=== PATIENT | female | born 1950 | race Caucasian/White ===

== ENCOUNTER 2019-12-20 12:15 | Outpatient (RCR) | payer MEDICARE, SELFPAY ==
--- NOTE | 2019-11-22 11:11 | PT.OIE ---
Current Diagnoses Displaced fracture of fifth metatarsal bone, right foot, initial encounter for closed fracture (11/22/19) Visit Care Team Role Provider Type Manuel Reilly MD Primary Care Provider Physician Specialty: Wound Care Address: [address] [place] [address], [id number] Email: [email or web address] Provider Physician Referring Provider Specialty: Podiatry Address: [address] [place] [address], [id number] Email: [email or web address] Physical Therapy Initial Evaluation PT-OP-A Visit Information Start: 11/22/19 09:55 Freq: Status: Active Protocol: Document 11/22/19 09:56 MB (Rec: 11/22/19 10:12 MB [id number]) Out-Patient Physical Therapy Visit Information Visit Information Visit Type Initial Evaluation Visit Note [employer] Medicare Advantage Visit Start Time 09:56 Visit Stop Time 10:30 Total Visit Minutes 34 Visit Number 1 Evaluation Information Evaluation Date 11/22/19 PT-OP-B Current Condition Start: 11/22/19 09:55 Freq: Status: Active Protocol: Document 11/22/19 09:56 MB (Rec: 11/22/19 10:12 MB [id number]) Current Condition History of Current Condition Onset Date 10/15/2019 Current Complaints Occ dizziness, neck pain, back pain, right foot pain History of Current Condition Pt tripped over a cord at home . On x-ray 10/16/2019, pt with fx through proximal aspect of fifth metatarsal bone with fracture displacement. Clinician report revealed irregular area medial cuneiform at the navicular cuneiform junction consistent with fracture, 5th metatarsal styloid process fracture. Pt was wearing boot for a few days and then post-op shoe and using walker. She is now using walking stick and ASO in shoe. Pain reports 2/10 pain bottom and top of right foot, neck and back pain up to 5/10. Pt reports history of dizziness, OP, arthritis, left hip replacement, hyopthyroidism. Pt has one step to enter house with 1 rail. Pt has stairs in the house to bedroom. She has two sets of staris, one has both rails and one has right rail ascend. Right now she is sleeping downstairs. She just moved to the area. Pt just saw Dr. Arredondo and cleared her for WBAT with ASO and shoe. Prior Treatments and Tests X-ray Treatment Goals Patient/Caregiver Goals Goals for PT are to be able to walk better and get back to normal activities. PT-OP-C Subjective Start: 11/22/19 09:55 Freq: Status: Active Protocol: Document 11/22/19 09:56 MB (Rec: 11/22/19 10:12 MB [id number]) OP-PT Subjective Patient Comments Patient Comments See history of current condition and goals sections. Patient Questionnaires Lower Extremity Functional Scale LEFS Score 34 LEFS Impairment 40 to 59% Impaired (Score 32- 47) PT-OP-D Balance Start: 11/22/19 09:55 Freq: Status: Active Protocol: Document 11/22/19 09:56 MB (Rec: 11/22/19 11:00 MB [id number]) Balance Tests Other Other Balance Tests Performed Pt does not full WB through right foot in standing and uses walking stick as cane, which is not very steady. Formal balance testing deferred. PT-OP-G Mobility & Gait Start: 11/22/19 09:55 Freq: Status: Active Protocol: Document 11/22/19 09:56 MB (Rec: 11/22/19 11:00 MB [id number]) OP Gait Assessment Gait Gait Assistance Required: Standby Assistance Distance (Feet) 100 Able to Maintain Weight Bearing Status Yes During Gait Gait Deviations General Gait Pattern Decreased Stride Length, Decreased Feet Clearance, Flexed Trunk,Lateral Trunk Lean Factors Limiting Gait Function Factors Limiting Gait Function Limited Range of Motion,Pain, Poor Balance Comments Gait Comments Pt uses walking stick in left hand. The stick is low, like a cane, but does not offer support like a cane d/t the handle. Ed patient in this and benefits of cane or traying the walking stick at raised height. PT-OP-J Posture/Palpation/Skin Start: 11/22/19 09:55 Freq: Status: Active Protocol: Document 11/22/19 09:56 MB (Rec: 11/22/19 11:02 MB [id number]) Skin Assessment Other Assessments Skin Assessment Comments See ankle circumference measurement under ROM. Pt presents with bruising over right great toe. Her proprioception in toes is normal. PT-OP-K Range of Motion Start: 11/22/19 09:55 Freq: Status: Active Protocol: Document 11/22/19 09:56 MB (Rec: 11/22/19 11:00 MB [id number]) Ankle and Foot Goniometric Range of Motion Ankle and Foot Right Ankle/Foot ROM WFL No Testing Position Supine Inversion 20 Eversion 5 Left Ankle/Foot ROM WFL Yes Testing Position Supine Ankle and Foot ROM Limitations Comments Pt presents with self-limiting behaviors with foot motion. She presents with right active AROM DF and PF 50% range compared to the left in supine with leg supported Pt presents with edema right ankle with figure 8 circumference 49 cm and left 47 cm. PT-OP-M Strength Start: 11/22/19 09:55 Freq: Status: Active Protocol: Document 11/22/19 09:56 MB (Rec: 11/22/19 11:00 MB [id number]) Hip Strength Hip Manual Muscle Testing Right Flexion (L2) 3+ Fair+ Abduction 3+ Fair+ Left Flexion (L2) 4 Good Abduction 3+ Fair+ Knee Strength Knee Manual Muscle Testing Right Flexion (S2) 3+ Fair+ Extension (L3) 3+ Fair+ Left Flexion (S2) 4 Good Extension (L3) 4 Good Ankle/Foot Strength Ankle and Foot Manual Muscle Testing Right Comments MMT not tested d/t symptomology and pt fear Left Dorsiflexion (L4) 5 Normal Plantarflexion (S1) 4 Good Inversion 5 Normal Eversion (S1) 5 Normal Comments PF assessed supine PT-OP-T Assessment and Plan Start: 11/22/19 09:55 Freq: Status: Active Protocol: Document 11/22/19 09:56 MB (Rec: 11/22/19 11:00 MB [id number]) Physical Therapy Assessment Rehab Potential Rehabilitation Potential Fair Evaluation Complexity Number of Personal Factors/Comorbidities 1-2 Number of Body Systems Impaired 1-2 Clinical Presentation at Evaluation Evolving Impairments Impairments Activity Tolerance,Balance, Edema,Gait,Pain,ROM,Soft Tissue Mobility,Strength Other Impairments Pt with advanced age, fractures in setting of OP, history of dizziness and falls . This fall was mechanical, tripped over cord. Goals 5 Longterm Goal (LTG) Pt will ascend and descend 7 steps with 1 rail to allow safe home mobility by 2019. LTG Duration 8 weeks 4 Ehs Manager Goal (LTG) Pt will perform HEP with I including balance, flexibility , strengthening and gait to improve strength and walking by 01/21/2020. LTG Duration 8 weeks 3 Longterm Goal (LTG) Pt will perform WNLs on a standardized balance test to decrease fall risk by 2019. LTG Duration 8 weeks 2 Longterm Goal (LTG) Pt will gait train at least 900 feet in 6 minutes with or without AD to improve community ambulation safety and speed by 01/21/2020. LTG Duration 8 weeks 1 Ehs Manager Goal (LTG) Pt will present with an improved LE functional index score to reflect no more than 20% impairment to reflect improved functional mobility by 01/21/2020. LTG Duration 8 weeks Assessment Summary Assessment Pt is a 69 y/o female presenting with right foot edema, erythema, decreased range and strength, poor gait and balance after tripping over cord and fall in October. [place] to the area. Her new home has a flight of steps inside. She lives alone and does not have help. Pt will benefit from PT to improve flexibility, range, strength and gait. Barriers to PT include comminuted foot fracture in older female with OP. She may have poor bone healing. Also, she has a history of dizziness and this may increase fall risk. PT included canalith repositioning in intervention plan in case she needs to be assessed and treated, which will help reduce fall risk and improve gait and I. Pt provided Tubagrip today to help with compression and ed pt on elevation, icing and AROM right foot as well as shoes near bed to use when getting up at night--no barefoot walking. Physical Therapy Plan Frequency and Duration Frequency of Treatment 2x/Week Duration of Treatment 8 weeks Plan of Care Start Date 11/22/19 Plan of Care End Date 01/21/20 Therapeutic Interventions Therapeutic Interventions Aquatic Therapy,Balance Training,Canalithic Repositioning,Coordination Training,Gait Training,Home Exercise Program,Manual Therapy,Neuromuscular Re- education,Patient/Caregiver Education,Self-Care/Home Management,Soft Tissue Mobilization,Taping, Therapeutic Activities, Therapeutic Exercises Modalities Cold Pack/Ice Massage,Electric Stimulation,Hot Packs, Ultrasound Other Therapeutic Interventions LLT Next Visit Focus/Plan Next Note Type Treatment Note Next Visit Plan Review RICE, answer questions about compression, review footwear options, discuss ASO use, progress gentle AROM in supine and sitting, cane vs walking stick
--- NOTE | 2019-11-25 16:00 | PT.OTN ---
Current Diagnoses Displaced fracture of fifth metatarsal bone, right foot, initial encounter for closed fracture (11/25/19) Physical Therapy Treatment Note PT-OP-A Visit Information Start: 11/22/19 09:55 Freq: Status: Active Protocol: Document 11/25/19 15:17 MB (Rec: 11/25/19 16:00 MB [id number]) Out-Patient Physical Therapy Visit Information Visit Information Visit Type Treatment Note Visit Note [employer] Medicare Advantage Visit Start Time 15:17 Visit Stop Time 16:00 Total Visit Minutes 43 Visit Number 2 PT-OP-B Current Condition Start: 11/22/19 09:55 Freq: Status: Active Protocol: Document 11/22/19 09:56 MB (Rec: 11/22/19 10:12 MB [id number]) Current Condition History of Current Condition Onset Date 10/15/2019 Current Complaints Occ dizziness, neck pain, back pain, right foot pain History of Current Condition Pt tripped over a cord at home . On x-ray 10/16/2019, pt with fx through proximal aspect of fifth metatarsal bone with fracture displacement. Clinician report revealed irregular area medial cuneiform at the navicular cuneiform junction consistent with fracture, 5th metatarsal styloid process fracture. Pt was wearing boot for a few days and then post-op shoe and using walker. She is now using walking stick and ASO in shoe. Pain reports 2/10 pain bottom and top of right foot, neck and back pain up to 5/10. Pt reports history of dizziness, OP, arthritis, left hip replacement, hyopthyroidism. Pt has one step to enter house with 1 rail. Pt has stairs in the house to bedroom. She has two sets of staris, one has both rails and one has right rail ascend. Right now she is sleeping downstairs. She just moved to the area. Pt just saw Dr. Arredondo and cleared her for WBAT with ASO and shoe. Prior Treatments and Tests X-ray Treatment Goals Patient/Caregiver Goals Goals for PT are to be able to walk better and get back to normal activities. PT-OP-C Subjective Start: 11/22/19 09:55 Freq: Status: Active Protocol: Document 11/25/19 15:17 MB (Rec: 11/25/19 16:00 MB [id number]) OP-PT Subjective Patient Comments Patient Comments Pt states that she walked half mile to PT with walking stick in left hand and sneakers. She does not wear ASO. PT-OP-D Balance Start: 11/22/19 09:55 Freq: Status: Active Protocol: Document 11/22/19 09:56 MB (Rec: 11/22/19 11:00 MB [id number]) Balance Tests Other Other Balance Tests Performed Pt does not full WB through right foot in standing and uses walking stick as cane, which is not very steady. Formal balance testing deferred. PT-OP-G Mobility & Gait Start: 11/22/19 09:55 Freq: Status: Active Protocol: Document 11/22/19 09:56 MB (Rec: 11/22/19 11:00 MB [id number]) OP Gait Assessment Gait Gait Assistance Required: Standby Assistance Distance (Feet) 100 Able to Maintain Weight Bearing Status Yes During Gait Gait Deviations General Gait Pattern Decreased Stride Length, Decreased Feet Clearance, Flexed Trunk,Lateral Trunk Lean Factors Limiting Gait Function Factors Limiting Gait Function Limited Range of Motion,Pain, Poor Balance Comments Gait Comments Pt uses walking stick in left hand. The stick is low, like a cane, but does not offer support like a cane d/t the handle. Ed patient in this and benefits of cane or traying the walking stick at raised height. PT-OP-J Posture/Palpation/Skin Start: 11/22/19 09:55 Freq: Status: Active Protocol: Document 11/22/19 09:56 MB (Rec: 11/22/19 11:02 MB [id number]) Skin Assessment Other Assessments Skin Assessment Comments See ankle circumference measurement under ROM. Pt presents with bruising over right great toe. Her proprioception in toes is normal. PT-OP-K Range of Motion Start: 11/22/19 09:55 Freq: Status: Active Protocol: Document 11/22/19 09:56 MB (Rec: 11/22/19 11:00 MB [id number]) Ankle and Foot Goniometric Range of Motion Ankle and Foot Right Ankle/Foot ROM WFL No Testing Position Supine Inversion 20 Eversion 5 Left Ankle/Foot ROM WFL Yes Testing Position Supine Ankle and Foot ROM Limitations Comments Pt presents with self-limiting behaviors with foot motion. She presents with right active AROM DF and PF 50% range compared to the left in supine with leg supported Pt presents with edema right ankle with figure 8 circumference 49 cm and left 47 cm. PT-OP-M Strength Start: 11/22/19 09:55 Freq: Status: Active Protocol: Document 11/22/19 09:56 MB (Rec: 11/22/19 11:00 MB [id number]) Hip Strength Hip Manual Muscle Testing Right Flexion (L2) 3+ Fair+ Abduction 3+ Fair+ Left Flexion (L2) 4 Good Abduction 3+ Fair+ Knee Strength Knee Manual Muscle Testing Right Flexion (S2) 3+ Fair+ Extension (L3) 3+ Fair+ Left Flexion (S2) 4 Good Extension (L3) 4 Good Ankle/Foot Strength Ankle and Foot Manual Muscle Testing Right Comments MMT not tested d/t symptomology and pt fear Left Dorsiflexion (L4) 5 Normal Plantarflexion (S1) 4 Good Inversion 5 Normal Eversion (S1) 5 Normal Comments PF assessed supine PT-OP-Q Treatments Start: 11/22/19 09:55 Freq: Status: Active Protocol: Document 11/25/19 15:17 MB (Rec: 11/25/19 16:00 MB [id number]) Therapeutic Exercises Sitting Exercises [place] for plantar fascia stretch and toe flexion and PF with level 2 band Comments Performed 10 reps Gait Training Gait Activity Gait training after taping right knee for support Comments Pt con't to present with improved gait without AD and carrying bags, right knee taped for support and she states it feels better Gait training with and without walking stick in left hand with pt carrying her purse and bag Comments Pt gait trains with walking stick, gait is slower and more antalgic and with more Trendelenburg gait, gait is much better without AD. She carries bags half mile to appointment and so PT assesses her carrying the bags without walking aide and she gait trains better Manual Therapy Treatment Taping Right knee Comments Black KT I strips medial and lateral knee for support and c strip under knee PT-OP-T Assessment and Plan Start: 11/22/19 09:55 Freq: Status: Active Protocol: Document 11/25/19 15:17 MB (Rec: 11/25/19 16:00 MB [id number]) Physical Therapy Assessment Rehab Potential Rehabilitation Potential Fair Evaluation Complexity Number of Personal Factors/Comorbidities 1-2 Number of Body Systems Impaired 1-2 Clinical Presentation at Evaluation Evolving Impairments Impairments Activity Tolerance,Balance, Edema,Gait,Pain,ROM,Soft Tissue Mobility,Strength Other Impairments Pt with advanced age, fractures in setting of OP, history of dizziness and falls . This fall was mechanical, tripped over cord. Goals 5 Pharmacist Technician Goal (LTG) Pt will ascend and descend 7 steps with 1 rail to allow safe home mobility by 2019. LTG Duration 8 weeks 4 Longterm Goal (LTG) Pt will perform HEP with I including balance, flexibility , strengthening and gait to improve strength and walking by 01/21/2020. LTG Duration 8 weeks 3 Longterm Goal (LTG) Pt will perform WNLs on a standardized balance test to decrease fall risk by 2019. LTG Duration 8 weeks 2 Pharmacist Technician Goal (LTG) Pt will gait train at least 900 feet in 6 minutes with or without AD to improve community ambulation safety and speed by 01/21/2020. LTG Duration 8 weeks 1 Pharmacist Technician Goal (LTG) Pt will present with an improved LE functional index score to reflect no more than 20% impairment to reflect improved functional mobility by 01/21/2020. LTG Duration 8 weeks Assessment Summary Assessment Progressed gait without AD and ASO today. Added ankle stretch and band strengthening exercise. Con't to progress. Physical Therapy Plan Frequency and Duration Frequency of Treatment 2x/Week Duration of Treatment 8 weeks Plan of Care Start Date 11/22/19 Plan of Care End Date 01/21/20 Therapeutic Interventions Therapeutic Interventions Aquatic Therapy,Balance Training,Canalithic Repositioning,Coordination Training,Gait Training,Home Exercise Program,Manual Therapy,Neuromuscular Re- education,Patient/Caregiver Education,Self-Care/Home Management,Soft Tissue Mobilization,Taping, Therapeutic Activities, Therapeutic Exercises Modalities Cold Pack/Ice Massage,Electric Stimulation,Hot Packs, Ultrasound Other Therapeutic Interventions LLT Next Visit Focus/Plan Next Note Type Treatment Note Next Visit Plan Con't exercise progression, flexibility, strengthening and gait--consider hip strengthening in hook lying to begin with and hook lying flexibility exercises, progressive balance exercises
--- NOTE | 2019-11-29 13:43 | PT.OTN ---
Current Diagnoses Displaced fracture of fifth metatarsal bone, right foot, initial encounter for closed fracture (11/29/19) Physical Therapy Treatment Note PT-OP-A Visit Information Start: 11/22/19 09:55 Freq: Status: Active Protocol: Document 11/29/19 13:08 MB (Rec: 11/29/19 13:42 MB [id number]) Out-Patient Physical Therapy Visit Information Visit Information Visit Type Treatment Note Visit Note [facility] Medicare Advantage Pt arrives late to appointment Visit Start Time 13:08 Visit Stop Time 13:45 Total Visit Minutes 37 Visit Number 3 PT-OP-B Current Condition Start: 11/22/19 09:55 Freq: Status: Active Protocol: Document 11/22/19 09:56 MB (Rec: 11/22/19 10:12 MB [id number]) Current Condition History of Current Condition Onset Date 10/15/2019 Current Complaints Occ dizziness, neck pain, back pain, right foot pain History of Current Condition Pt tripped over a cord at home . On x-ray 10/16/2019, pt with fx through proximal aspect of fifth metatarsal bone with fracture displacement. Clinician report revealed irregular area medial cuneiform at the navicular cuneiform junction consistent with fracture, 5th metatarsal styloid process fracture. Pt was wearing boot for a few days and then post-op shoe and using walker. She is now using walking stick and ASO in shoe. Pain reports 2/10 pain bottom and top of right foot, neck and back pain up to 5/10. Pt reports history of dizziness, OP, arthritis, left hip replacement, hyopthyroidism. Pt has one step to enter house with 1 rail. Pt has stairs in the house to bedroom. She has two sets of staris, one has both rails and one has right rail ascend. Right now she is sleeping downstairs. She just moved to the area. Pt just saw Dr. Arredondo and cleared her for WBAT with ASO and shoe. Prior Treatments and Tests X-ray Treatment Goals Patient/Caregiver Goals Goals for PT are to be able to walk better and get back to normal activities. PT-OP-C Subjective Start: 11/22/19 09:55 Freq: Status: Active Protocol: Document 11/29/19 13:08 MB (Rec: 11/29/19 13:42 MB [id number]) OP-PT Subjective Patient Comments Patient Comments Pt states that she thinks she might get a cane to help take the pressure off her right foot with walking. PT encourages her to try two walking sticks instead. She is using Tubagrip. PT-OP-D Balance Start: 11/22/19 09:55 Freq: Status: Active Protocol: Document 11/22/19 09:56 MB (Rec: 11/22/19 11:00 MB [id number]) Balance Tests Other Other Balance Tests Performed Pt does not full WB through right foot in standing and uses walking stick as cane, which is not very steady. Formal balance testing deferred. PT-OP-G Mobility & Gait Start: 11/22/19 09:55 Freq: Status: Active Protocol: Document 11/22/19 09:56 MB (Rec: 11/22/19 11:00 MB [id number]) OP Gait Assessment Gait Gait Assistance Required: Standby Assistance Distance (Feet) 100 Able to Maintain Weight Bearing Status Yes During Gait Gait Deviations General Gait Pattern Decreased Stride Length, Decreased Feet Clearance, Flexed Trunk,Lateral Trunk Lean Factors Limiting Gait Function Factors Limiting Gait Function Limited Range of Motion,Pain, Poor Balance Comments Gait Comments Pt uses walking stick in left hand. The stick is low, like a cane, but does not offer support like a cane d/t the handle. Ed patient in this and benefits of cane or traying the walking stick at raised height. PT-OP-J Posture/Palpation/Skin Start: 11/22/19 09:55 Freq: Status: Active Protocol: Document 11/22/19 09:56 MB (Rec: 11/22/19 11:02 MB [id number]) Skin Assessment Other Assessments Skin Assessment Comments See ankle circumference measurement under ROM. Pt presents with bruising over right great toe. Her proprioception in toes is normal. PT-OP-K Range of Motion Start: 11/22/19 09:55 Freq: Status: Active Protocol: Document 11/22/19 09:56 MB (Rec: 11/22/19 11:00 MB [id number]) Ankle and Foot Goniometric Range of Motion Ankle and Foot Right Ankle/Foot ROM WFL No Testing Position Supine Inversion 20 Eversion 5 Left Ankle/Foot ROM WFL Yes Testing Position Supine Ankle and Foot ROM Limitations Comments Pt presents with self-limiting behaviors with foot motion. She presents with right active AROM DF and PF 50% range compared to the left in supine with leg supported Pt presents with edema right ankle with figure 8 circumference 49 cm and left 47 cm. PT-OP-M Strength Start: 11/22/19 09:55 Freq: Status: Active Protocol: Document 11/22/19 09:56 MB (Rec: 11/22/19 11:00 MB [id number]) Hip Strength Hip Manual Muscle Testing Right Flexion (L2) 3+ Fair+ Abduction 3+ Fair+ Left Flexion (L2) 4 Good Abduction 3+ Fair+ Knee Strength Knee Manual Muscle Testing Right Flexion (S2) 3+ Fair+ Extension (L3) 3+ Fair+ Left Flexion (S2) 4 Good Extension (L3) 4 Good Ankle/Foot Strength Ankle and Foot Manual Muscle Testing Right Comments MMT not tested d/t symptomology and pt fear Left Dorsiflexion (L4) 5 Normal Plantarflexion (S1) 4 Good Inversion 5 Normal Eversion (S1) 5 Normal Comments PF assessed supine PT-OP-Q Treatments Start: 11/22/19 09:55 Freq: Status: Active Protocol: Document 11/29/19 13:08 MB (Rec: 11/29/19 13:42 MB [id number]) Therapeutic Exercises Supine Exercises ABCs ankle Comments Perform at home when resting, watching TV Pelvic realignment exercises Comments 5 reps, 3 sec hold Hamstring stretch Comments Hook lying with hands behind knees and APs Sitting Exercises [place] for plantar fascia stretch and toe flexion and PF with level 2 band Comments Performs I today, barefoot 10 reps PT-OP-T Assessment and Plan Start: 11/22/19 09:55 Freq: Status: Active Protocol: Document 11/29/19 13:08 MB (Rec: 11/29/19 13:42 MB [id number]) Physical Therapy Assessment Rehab Potential Rehabilitation Potential Fair Evaluation Complexity Number of Personal Factors/Comorbidities 1-2 Number of Body Systems Impaired 1-2 Clinical Presentation at Evaluation Evolving Impairments Impairments Activity Tolerance,Balance, Edema,Gait,Pain,ROM,Soft Tissue Mobility,Strength Other Impairments Pt with advanced age, fractures in setting of OP, history of dizziness and falls . This fall was mechanical, tripped over cord. Goals 5 Retirement Goal (LTG) Pt will ascend and descend 7 steps with 1 rail to allow safe home mobility by 8/14/ 2020. LTG Duration 8 weeks 4 Tool Grinder Operator Surface Goal (LTG) Pt will perform HEP with I including balance, flexibility , strengthening and gait to improve strength and walking by 01/21/2020. LTG Duration 8 weeks 3 Tool Grinder Operator Surface Goal (LTG) Pt will perform WNLs on a standardized balance test to decrease fall risk by 2019. LTG Duration 8 weeks 2 Tool Grinder Operator Surface Goal (LTG) Pt will gait train at least 900 feet in 6 minutes with or without AD to improve community ambulation safety and speed by 01/21/2020. LTG Duration 8 weeks 1 Retirement Goal (LTG) Pt will present with an improved LE functional index score to reflect no more than 20% impairment to reflect improved functional mobility by 01/21/2020. LTG Duration 8 weeks Assessment Summary Assessment Progressed exercises today-- for alignment to help with walking and hamstring flexibility. Exercise education and practice and review of handouts takes increased time with patient. Physical Therapy Plan Frequency and Duration Frequency of Treatment 2x/Week Duration of Treatment 8 weeks Plan of Care Start Date 11/22/19 Plan of Care End Date 01/21/20 Therapeutic Interventions Therapeutic Interventions Aquatic Therapy,Balance Training,Canalithic Repositioning,Coordination Training,Gait Training,Home Exercise Program,Manual Therapy,Neuromuscular Re- education,Patient/Caregiver Education,Self-Care/Home Management,Soft Tissue Mobilization,Taping, Therapeutic Activities, Therapeutic Exercises Modalities Cold Pack/Ice Massage,Electric Stimulation,Hot Packs, Ultrasound Other Therapeutic Interventions LLT Next Visit Focus/Plan Next Note Type Treatment Note Next Visit Plan Con't exercise progression, flexibility, strengthening and gait--consider hip strengthening in hook lying to begin with and hook lying flexibility exercises, progressive balance exercises
--- NOTE | 2019-12-02 12:56 | PT.OTN ---
Current Diagnoses Displaced fracture of fifth metatarsal bone, right foot, initial encounter for closed fracture (12/02/19) Physical Therapy Treatment Note PT-OP-A Visit Information Start: 11/22/19 09:55 Freq: Status: Active Protocol: Document 12/02/19 12:16 MB (Rec: 12/02/19 12:56 MB [id number]) Out-Patient Physical Therapy Visit Information Visit Information Visit Type Treatment Note Visit Note [employer] Medicare Advantage Visit Start Time 12:16 Visit Stop Time 13:54 Total Visit Minutes 38 Visit Number 4 PT-OP-B Current Condition Start: 11/22/19 09:55 Freq: Status: Active Protocol: Document 11/22/19 09:56 MB (Rec: 11/22/19 10:12 MB [id number]) Current Condition History of Current Condition Onset Date 10/15/2019 Current Complaints Occ dizziness, neck pain, back pain, right foot pain History of Current Condition Pt tripped over a cord at home . On x-ray 10/16/2019, pt with fx through proximal aspect of fifth metatarsal bone with fracture displacement. Clinician report revealed irregular area medial cuneiform at the navicular cuneiform junction consistent with fracture, 5th metatarsal styloid process fracture. Pt was wearing boot for a few days and then post-op shoe and using walker. She is now using walking stick and ASO in shoe. Pain reports 2/10 pain bottom and top of right foot, neck and back pain up to 5/10. Pt reports history of dizziness, OP, arthritis, left hip replacement, hyopthyroidism. Pt has one step to enter house with 1 rail. Pt has stairs in the house to bedroom. She has two sets of staris, one has both rails and one has right rail ascend. Right now she is sleeping downstairs. She just moved to the area. Pt just saw Dr. Arredondo and cleared her for WBAT with ASO and shoe. Prior Treatments and Tests X-ray Treatment Goals Patient/Caregiver Goals Goals for PT are to be able to walk better and get back to normal activities. PT-OP-C Subjective Start: 11/22/19 09:55 Freq: Status: Active Protocol: Document 12/02/19 12:16 MB (Rec: 12/02/19 12:56 MB [id number]) OP-PT Subjective Patient Comments Patient Comments Pt brings in walking sticks and states that she likes using them right now. PT-OP-D Balance Start: 11/22/19 09:55 Freq: Status: Active Protocol: Document 11/22/19 09:56 MB (Rec: 11/22/19 11:00 MB [id number]) Balance Tests Other Other Balance Tests Performed Pt does not full WB through right foot in standing and uses walking stick as cane, which is not very steady. Formal balance testing deferred. PT-OP-G Mobility & Gait Start: 11/22/19 09:55 Freq: Status: Active Protocol: Document 11/22/19 09:56 MB (Rec: 11/22/19 11:00 MB [id number]) OP Gait Assessment Gait Gait Assistance Required: Standby Assistance Distance (Feet) 100 Able to Maintain Weight Bearing Status Yes During Gait Gait Deviations General Gait Pattern Decreased Stride Length, Decreased Feet Clearance, Flexed Trunk,Lateral Trunk Lean Factors Limiting Gait Function Factors Limiting Gait Function Limited Range of Motion,Pain, Poor Balance Comments Gait Comments Pt uses walking stick in left hand. The stick is low, like a cane, but does not offer support like a cane d/t the handle. Ed patient in this and benefits of cane or traying the walking stick at raised height. PT-OP-J Posture/Palpation/Skin Start: 11/22/19 09:55 Freq: Status: Active Protocol: Document 11/22/19 09:56 MB (Rec: 11/22/19 11:02 MB [id number]) Skin Assessment Other Assessments Skin Assessment Comments See ankle circumference measurement under ROM. Pt presents with bruising over right great toe. Her proprioception in toes is normal. PT-OP-K Range of Motion Start: 11/22/19 09:55 Freq: Status: Active Protocol: Document 11/22/19 09:56 MB (Rec: 11/22/19 11:00 MB [id number]) Ankle and Foot Goniometric Range of Motion Ankle and Foot Right Ankle/Foot ROM WFL No Testing Position Supine Inversion 20 Eversion 5 Left Ankle/Foot ROM WFL Yes Testing Position Supine Ankle and Foot ROM Limitations Comments Pt presents with self-limiting behaviors with foot motion. She presents with right active AROM DF and PF 50% range compared to the left in supine with leg supported Pt presents with edema right ankle with figure 8 circumference 49 cm and left 47 cm. PT-OP-M Strength Start: 11/22/19 09:55 Freq: Status: Active Protocol: Document 11/22/19 09:56 MB (Rec: 11/22/19 11:00 MB [id number]) Hip Strength Hip Manual Muscle Testing Right Flexion (L2) 3+ Fair+ Abduction 3+ Fair+ Left Flexion (L2) 4 Good Abduction 3+ Fair+ Knee Strength Knee Manual Muscle Testing Right Flexion (S2) 3+ Fair+ Extension (L3) 3+ Fair+ Left Flexion (S2) 4 Good Extension (L3) 4 Good Ankle/Foot Strength Ankle and Foot Manual Muscle Testing Right Comments MMT not tested d/t symptomology and pt fear Left Dorsiflexion (L4) 5 Normal Plantarflexion (S1) 4 Good Inversion 5 Normal Eversion (S1) 5 Normal Comments PF assessed supine PT-OP-Q Treatments Start: 11/22/19 09:55 Freq: Status: Active Protocol: Document 12/02/19 12:16 MB (Rec: 12/02/19 12:56 MB [id number]) Therapeutic Exercises Supine Exercises Hip abduction, feet together hook lying Comments Level 1 band, 10 reps, cues for abdominal drawing in Abdominal drawing in, knee fall outs Reps/Minutes 10 reps Comments One knee at a time, reciprocating Abdominal drawing in Comments Performed today Zenon stretch Comments B 30 sec hold, abdominal drawing in Pelvic realignment exercises Comments 5 reps, 3 sec hold PT-OP-T Assessment and Plan Start: 11/22/19 09:55 Freq: Status: Active Protocol: Document 12/02/19 12:16 MB (Rec: 12/02/19 12:56 MB [id number]) Physical Therapy Assessment Rehab Potential Rehabilitation Potential Fair Evaluation Complexity Number of Personal Factors/Comorbidities 1-2 Number of Body Systems Impaired 1-2 Clinical Presentation at Evaluation Evolving Impairments Impairments Activity Tolerance,Balance, Edema,Gait,Pain,ROM,Soft Tissue Mobility,Strength Other Impairments Pt with advanced age, fractures in setting of OP, history of dizziness and falls . This fall was mechanical, tripped over cord. Goals 5 Frame Operator Goal (LTG) Pt will ascend and descend 7 steps with 1 rail to allow safe home mobility by 2019. LTG Duration 8 weeks 4 Frame Operator Goal (LTG) Pt will perform HEP with I including balance, flexibility , strengthening and gait to improve strength and walking by 01/21/2020. LTG Duration 8 weeks 3 Jail Goal (LTG) Pt will perform WNLs on a standardized balance test to decrease fall risk by 2019. LTG Duration 8 weeks 2 Frame Operator Goal (LTG) Pt will gait train at least 900 feet in 6 minutes with or without AD to improve community ambulation safety and speed by 01/21/2020. LTG Duration 8 weeks 1 Frame Operator Goal (LTG) Pt will present with an improved LE functional index score to reflect no more than 20% impairment to reflect improved functional mobility by 01/21/2020. LTG Duration 8 weeks Assessment Summary Assessment Initiated core exercises today and progressed hip strengthening in hook lying. Physical Therapy Plan Frequency and Duration Frequency of Treatment 2x/Week Duration of Treatment 8 weeks Plan of Care Start Date 11/22/19 Plan of Care End Date 01/21/20 Therapeutic Interventions Therapeutic Interventions Aquatic Therapy,Balance Training,Canalithic Repositioning,Coordination Training,Gait Training,Home Exercise Program,Manual Therapy,Neuromuscular Re- education,Patient/Caregiver Education,Self-Care/Home Management,Soft Tissue Mobilization,Taping, Therapeutic Activities, Therapeutic Exercises Modalities Cold Pack/Ice Massage,Electric Stimulation,Hot Packs, Ultrasound Other Therapeutic Interventions LLT Next Visit Focus/Plan Next Note Type Treatment Note Next Visit Plan Con't exercise progression, flexibility, strengthening in hook lying and standing and sitting; balance training. Consider Counterstrain to help with fascial tension.
--- NOTE | 2019-12-09 15:13 | PT.OTN ---
Current Diagnoses Displaced fracture of fifth metatarsal bone, right foot, initial encounter for closed fracture (12/09/19) Physical Therapy Treatment Note PT-OP-A Visit Information Start: 11/22/19 09:55 Freq: Status: Active Protocol: Document 12/09/19 14:32 MB (Rec: 12/09/19 15:13 MB [id number]) Out-Patient Physical Therapy Visit Information Visit Information Visit Type Treatment Note Visit Note [employer] Medicare Advantage Visit Start Time 14:32 Visit Stop Time 15:10 Total Visit Minutes 38 Visit Number 5 PT-OP-B Current Condition Start: 11/22/19 09:55 Freq: Status: Active Protocol: Document 11/22/19 09:56 MB (Rec: 11/22/19 10:12 MB [id number]) Current Condition History of Current Condition Onset Date 10/15/2019 Current Complaints Occ dizziness, neck pain, back pain, right foot pain History of Current Condition Pt tripped over a cord at home . On x-ray 10/16/2019, pt with fx through proximal aspect of fifth metatarsal bone with fracture displacement. Clinician report revealed irregular area medial cuneiform at the navicular cuneiform junction consistent with fracture, 5th metatarsal styloid process fracture. Pt was wearing boot for a few days and then post-op shoe and using walker. She is now using walking stick and ASO in shoe. Pain reports 2/10 pain bottom and top of right foot, neck and back pain up to 5/10. Pt reports history of dizziness, OP, arthritis, left hip replacement, hyopthyroidism. Pt has one step to enter house with 1 rail. Pt has stairs in the house to bedroom. She has two sets of staris, one has both rails and one has right rail ascend. Right now she is sleeping downstairs. She just moved to the area. Pt just saw Dr. Arredondo and cleared her for WBAT with ASO and shoe. Prior Treatments and Tests X-ray Treatment Goals Patient/Caregiver Goals Goals for PT are to be able to walk better and get back to normal activities. PT-OP-C Subjective Start: 11/22/19 09:55 Freq: Status: Active Protocol: Document 12/09/19 14:32 MB (Rec: 12/09/19 15:13 MB [id number]) OP-PT Subjective Patient Comments Patient Comments Pt expresses concern about coming into hospital and being near a lot of people in the waiting room. She is concerned about exposure to COVID and social distancing. She would like to decrease therapy frequency. Pt made a follow-up appointment with Dr. Arredondo. PT-OP-D Balance Start: 11/22/19 09:55 Freq: Status: Active Protocol: Document 11/22/19 09:56 MB (Rec: 11/22/19 11:00 MB [id number]) Balance Tests Other Other Balance Tests Performed Pt does not full WB through right foot in standing and uses walking stick as cane, which is not very steady. Formal balance testing deferred. PT-OP-G Mobility & Gait Start: 11/22/19 09:55 Freq: Status: Active Protocol: Document 11/22/19 09:56 MB (Rec: 11/22/19 11:00 MB [id number]) OP Gait Assessment Gait Gait Assistance Required: Standby Assistance Distance (Feet) 100 Able to Maintain Weight Bearing Status Yes During Gait Gait Deviations General Gait Pattern Decreased Stride Length, Decreased Feet Clearance, Flexed Trunk,Lateral Trunk Lean Factors Limiting Gait Function Factors Limiting Gait Function Limited Range of Motion,Pain, Poor Balance Comments Gait Comments Pt uses walking stick in left hand. The stick is low, like a cane, but does not offer support like a cane d/t the handle. Ed patient in this and benefits of cane or traying the walking stick at raised height. PT-OP-J Posture/Palpation/Skin Start: 11/22/19 09:55 Freq: Status: Active Protocol: Document 11/22/19 09:56 MB (Rec: 11/22/19 11:02 MB [id number]) Skin Assessment Other Assessments Skin Assessment Comments See ankle circumference measurement under ROM. Pt presents with bruising over right great toe. Her proprioception in toes is normal. PT-OP-K Range of Motion Start: 11/22/19 09:55 Freq: Status: Active Protocol: Document 11/22/19 09:56 MB (Rec: 11/22/19 11:00 MB [id number]) Ankle and Foot Goniometric Range of Motion Ankle and Foot Right Ankle/Foot ROM WFL No Testing Position Supine Inversion 20 Eversion 5 Left Ankle/Foot ROM WFL Yes Testing Position Supine Ankle and Foot ROM Limitations Comments Pt presents with self-limiting behaviors with foot motion. She presents with right active AROM DF and PF 50% range compared to the left in supine with leg supported Pt presents with edema right ankle with figure 8 circumference 49 cm and left 47 cm. PT-OP-M Strength Start: 11/22/19 09:55 Freq: Status: Active Protocol: Document 11/22/19 09:56 MB (Rec: 11/22/19 11:00 MB [id number]) Hip Strength Hip Manual Muscle Testing Right Flexion (L2) 3+ Fair+ Abduction 3+ Fair+ Left Flexion (L2) 4 Good Abduction 3+ Fair+ Knee Strength Knee Manual Muscle Testing Right Flexion (S2) 3+ Fair+ Extension (L3) 3+ Fair+ Left Flexion (S2) 4 Good Extension (L3) 4 Good Ankle/Foot Strength Ankle and Foot Manual Muscle Testing Right Comments MMT not tested d/t symptomology and pt fear Left Dorsiflexion (L4) 5 Normal Plantarflexion (S1) 4 Good Inversion 5 Normal Eversion (S1) 5 Normal Comments PF assessed supine PT-OP-Q Treatments Start: 11/22/19 09:55 Freq: Status: Active Protocol: Document 12/09/19 14:32 MB (Rec: 12/09/19 15:13 MB [id number]) Therapeutic Exercises Supine Exercises Hip abduction with band in hook lying Comments Abdominal drawing in, level 1 band Core exercise progression Comments Abdominal drawing in, HS, mini march Other Exercises Reviewed all exercises, pt had questions on freq Comments This done today PT-OP-T Assessment and Plan Start: 11/22/19 09:55 Freq: Status: Active Protocol: Document 12/09/19 14:32 MB (Rec: 12/09/19 15:13 MB [id number]) Physical Therapy Assessment Rehab Potential Rehabilitation Potential Fair Evaluation Complexity Number of Personal Factors/Comorbidities 1-2 Number of Body Systems Impaired 1-2 Clinical Presentation at Evaluation Evolving Impairments Impairments Activity Tolerance,Balance, Edema,Gait,Pain,ROM,Soft Tissue Mobility,Strength Other Impairments Pt with advanced age, fractures in setting of OP, history of dizziness and falls . This fall was mechanical, tripped over cord. Goals 5 Penitentiary Goal (LTG) Pt will ascend and descend 7 steps with 1 rail to allow safe home mobility by 2019. LTG Duration 8 weeks 4 Penitentiary Goal (LTG) Pt will perform HEP with I including balance, flexibility , strengthening and gait to improve strength and walking by 01/21/2020. LTG Duration 8 weeks 3 Penitentiary Goal (LTG) Pt will perform WNLs on a standardized balance test to decrease fall risk by 2019. LTG Duration 8 weeks 2 Penitentiary Goal (LTG) Pt will gait train at least 900 feet in 6 minutes with or without AD to improve community ambulation safety and speed by 01/21/2020. LTG Duration 8 weeks 1 Penitentiary Goal (LTG) Pt will present with an improved LE functional index score to reflect no more than 20% impairment to reflect improved functional mobility by 01/21/2020. LTG Duration 8 weeks Assessment Summary Assessment Progressive core strengthening and hip abduction in hook lying this date. Pt is apprehensive about therapy given COVID situation. PT offers d/c but pt states that she would like to decrease frequency to 1x/wk. PT states that clinic will con't with masking of pts and therapist, distancing of pts, cleaning equipment and offer to pt that she can call from car to check in so she will not have to wait in waiting room. Pt verbalizes understanding. Physical Therapy Plan Frequency and Duration Frequency of Treatment 2x/Week Duration of Treatment 8 weeks Plan of Care Start Date 11/22/19 Plan of Care End Date 01/21/20 Therapeutic Interventions Therapeutic Interventions Aquatic Therapy,Balance Training,Canalithic Repositioning,Coordination Training,Gait Training,Home Exercise Program,Manual Therapy,Neuromuscular Re- education,Patient/Caregiver Education,Self-Care/Home Management,Soft Tissue Mobilization,Taping, Therapeutic Activities, Therapeutic Exercises Modalities Cold Pack/Ice Massage,Electric Stimulation,Hot Packs, Ultrasound Other Therapeutic Interventions LLT Next Visit Focus/Plan Next Note Type Treatment Note Next Visit Plan Consider exercise progression with strengthening and balance in standing.
--- NOTE | 2019-12-13 12:59 | PT.OTN ---
Current Diagnoses Displaced fracture of fifth metatarsal bone, right foot, initial encounter for closed fracture (12/13/19) Physical Therapy Treatment Note PT-OP-A Visit Information Start: 11/22/19 09:55 Freq: Status: Active Protocol: Document 12/13/19 12:16 MB (Rec: 12/13/19 12:59 MB [id number]) Out-Patient Physical Therapy Visit Information Visit Information Visit Type Treatment Note Visit Note U[employer] Medicare Advantage Visit Start Time 12:16 Visit Stop Time 12:59 Total Visit Minutes 43 Visit Number 6 PT-OP-B Current Condition Start: 11/22/19 09:55 Freq: Status: Active Protocol: Document 11/22/19 09:56 MB (Rec: 11/22/19 10:12 MB [id number]) Current Condition History of Current Condition Onset Date 10/15/2019 Current Complaints Occ dizziness, neck pain, back pain, right foot pain History of Current Condition Pt tripped over a cord at home . On x-ray 10/16/2019, pt with fx through proximal aspect of fifth metatarsal bone with fracture displacement. Clinician report revealed irregular area medial cuneiform at the navicular cuneiform junction consistent with fracture, 5th metatarsal styloid process fracture. Pt was wearing boot for a few days and then post-op shoe and using walker. She is now using walking stick and ASO in shoe. Pain reports 2/10 pain bottom and top of right foot, neck and back pain up to 5/10. Pt reports history of dizziness, OP, arthritis, left hip replacement, hyopthyroidism. Pt has one step to enter house with 1 rail. Pt has stairs in the house to bedroom. She has two sets of staris, one has both rails and one has right rail ascend. Right now she is sleeping downstairs. She just moved to the area. Pt just saw Dr. Arredondo and cleared her for WBAT with ASO and shoe. Prior Treatments and Tests X-ray Treatment Goals Patient/Caregiver Goals Goals for PT are to be able to walk better and get back to normal activities. PT-OP-C Subjective Start: 11/22/19 09:55 Freq: Status: Active Protocol: Document 12/13/19 12:16 MB (Rec: 12/13/19 12:59 MB [id number]) OP-PT Subjective Patient Comments Patient Comments Pt states that the exercises are good. She could only do the hip flexor stretch 15 sec and will build up to it. PT-OP-D Balance Start: 11/22/19 09:55 Freq: Status: Active Protocol: Document 11/22/19 09:56 MB (Rec: 11/22/19 11:00 MB [id number]) Balance Tests Other Other Balance Tests Performed Pt does not full WB through right foot in standing and uses walking stick as cane, which is not very steady. Formal balance testing deferred. PT-OP-G Mobility & Gait Start: 11/22/19 09:55 Freq: Status: Active Protocol: Document 11/22/19 09:56 MB (Rec: 11/22/19 11:00 MB [id number]) OP Gait Assessment Gait Gait Assistance Required: Standby Assistance Distance (Feet) 100 Able to Maintain Weight Bearing Status Yes During Gait Gait Deviations General Gait Pattern Decreased Stride Length, Decreased Feet Clearance, Flexed Trunk,Lateral Trunk Lean Factors Limiting Gait Function Factors Limiting Gait Function Limited Range of Motion,Pain, Poor Balance Comments Gait Comments Pt uses walking stick in left hand. The stick is low, like a cane, but does not offer support like a cane d/t the handle. Ed patient in this and benefits of cane or traying the walking stick at raised height. PT-OP-J Posture/Palpation/Skin Start: 11/22/19 09:55 Freq: Status: Active Protocol: Document 11/22/19 09:56 MB (Rec: 11/22/19 11:02 MB [id number]) Skin Assessment Other Assessments Skin Assessment Comments See ankle circumference measurement under ROM. Pt presents with bruising over right great toe. Her proprioception in toes is normal. PT-OP-K Range of Motion Start: 11/22/19 09:55 Freq: Status: Active Protocol: Document 11/22/19 09:56 MB (Rec: 11/22/19 11:00 MB [id number]) Ankle and Foot Goniometric Range of Motion Ankle and Foot Right Ankle/Foot ROM WFL No Testing Position Supine Inversion 20 Eversion 5 Left Ankle/Foot ROM WFL Yes Testing Position Supine Ankle and Foot ROM Limitations Comments Pt presents with self-limiting behaviors with foot motion. She presents with right active AROM DF and PF 50% range compared to the left in supine with leg supported Pt presents with edema right ankle with figure 8 circumference 49 cm and left 47 cm. PT-OP-M Strength Start: 11/22/19 09:55 Freq: Status: Active Protocol: Document 11/22/19 09:56 MB (Rec: 11/22/19 11:00 MB [id number]) Hip Strength Hip Manual Muscle Testing Right Flexion (L2) 3+ Fair+ Abduction 3+ Fair+ Left Flexion (L2) 4 Good Abduction 3+ Fair+ Knee Strength Knee Manual Muscle Testing Right Flexion (S2) 3+ Fair+ Extension (L3) 3+ Fair+ Left Flexion (S2) 4 Good Extension (L3) 4 Good Ankle/Foot Strength Ankle and Foot Manual Muscle Testing Right Comments MMT not tested d/t symptomology and pt fear Left Dorsiflexion (L4) 5 Normal Plantarflexion (S1) 4 Good Inversion 5 Normal Eversion (S1) 5 Normal Comments PF assessed supine PT-OP-Q Treatments Start: 11/22/19 09:55 Freq: Status: Active Protocol: Document 12/13/19 12:16 MB (Rec: 12/13/19 12:59 MB [id number]) Therapeutic Exercises Supine Exercises Bridge with band Comments 1 rep, pt holds as long as she can Hip abduction with band in hook lying Comments 5 reps slowly with abdominal drawing in Core exercise progression Comments Performed 5 reps all today, cues for slowly Zenon stretch Comments B 30 sec hold, abdominal drawing in Pelvic realignment exercises Comments 5 reps, 3 sec hold Hamstring stretch Comments B 30 sec PT-OP-T Assessment and Plan Start: 11/22/19 09:55 Freq: Status: Active Protocol: Document 12/13/19 12:16 MB (Rec: 12/13/19 12:59 MB [id number]) Physical Therapy Assessment Rehab Potential Rehabilitation Potential Fair Evaluation Complexity Number of Personal Factors/Comorbidities 1-2 Number of Body Systems Impaired 1-2 Clinical Presentation at Evaluation Evolving Impairments Impairments Activity Tolerance,Balance, Edema,Gait,Pain,ROM,Soft Tissue Mobility,Strength Other Impairments Pt with advanced age, fractures in setting of OP, history of dizziness and falls . This fall was mechanical, tripped over cord. Goals 5 Pharmacognosy Teacher Goal (LTG) Pt will ascend and descend 7 steps with 1 rail to allow safe home mobility by 2019. LTG Duration 8 weeks 4 Halfway Goal (LTG) Pt will perform HEP with I including balance, flexibility , strengthening and gait to improve strength and walking by 01/21/2020. LTG Duration 8 weeks 3 Halfway Goal (LTG) Pt will perform WNLs on a standardized balance test to decrease fall risk by 2019. LTG Duration 8 weeks 2 Halfway Goal (LTG) Pt will gait train at least 900 feet in 6 minutes with or without AD to improve community ambulation safety and speed by 01/21/2020. LTG Duration 8 weeks 1 Halfway Goal (LTG) Pt will present with an improved LE functional index score to reflect no more than 20% impairment to reflect improved functional mobility by 01/21/2020. LTG Duration 8 weeks Assessment Summary Assessment Pt requests to review/practice all exercises and so pt performs all hook lying exercises today and PT answers questions about non-hook lying exercises as well. Pt reports overstrain in right thigh occ and old right hip replacement. Revised HEP: M/W/F Zenon and hamstring stretches T/Th/Sat Abdominal drawing in and core progression Clam with band in hook lying level 1 band As needed: Pelvic realignment exercises ABCs ankle Physical Therapy Plan Frequency and Duration Frequency of Treatment 2x/Week Duration of Treatment 8 weeks Plan of Care Start Date 11/22/19 Plan of Care End Date 01/21/20 Therapeutic Interventions Therapeutic Interventions Aquatic Therapy,Balance Training,Canalithic Repositioning,Coordination Training,Gait Training,Home Exercise Program,Manual Therapy,Neuromuscular Re- education,Patient/Caregiver Education,Self-Care/Home Management,Soft Tissue Mobilization,Taping, Therapeutic Activities, Therapeutic Exercises Modalities Cold Pack/Ice Massage,Electric Stimulation,Hot Packs, Ultrasound Other Therapeutic Interventions LLT Next Visit Focus/Plan Next Note Type Treatment Note Next Visit Plan Exercises to add to HEP: standing hip abduction and extension, standing balance exercise SLS and Tandem. Added bridge today.
--- NOTE | 2019-12-20 12:52 | PT.OTN ---
Current Diagnoses Displaced fracture of fifth metatarsal bone, right foot, initial encounter for closed fracture (12/20/19) Physical Therapy Treatment Note PT-OP-A Visit Information Start: 11/22/19 09:55 Freq: Status: Active Protocol: Document 12/20/19 12:09 MB (Rec: 12/20/19 12:51 MB [id number]) Out-Patient Physical Therapy Visit Information Visit Information Visit Type Treatment Note Visit Note UHC Medicare Advantage Visit Start Time 12:12 Visit Stop Time 12:50 Total Visit Minutes 38 Visit Number 7 PT-OP-B Current Condition Start: 11/22/19 09:55 Freq: Status: Active Protocol: Document 11/22/19 09:56 MB (Rec: 11/22/19 10:12 MB [id number]) Current Condition History of Current Condition Onset Date 10/15/2019 Current Complaints Occ dizziness, neck pain, back pain, right foot pain History of Current Condition Pt tripped over a cord at home . On x-ray 10/16/2019, pt with fx through proximal aspect of fifth metatarsal bone with fracture displacement. Clinician report revealed irregular area medial cuneiform at the navicular cuneiform junction consistent with fracture, 5th metatarsal styloid process fracture. Pt was wearing boot for a few days and then post-op shoe and using walker. She is now using walking stick and ASO in shoe. Pain reports 2/10 pain bottom and top of right foot, neck and back pain up to 5/10. Pt reports history of dizziness, OP, arthritis, left hip replacement, hyopthyroidism. Pt has one step to enter house with 1 rail. Pt has stairs in the house to bedroom. She has two sets of staris, one has both rails and one has right rail ascend. Right now she is sleeping downstairs. She just moved to the area. Pt just saw Dr. Arredondo and cleared her for WBAT with ASO and shoe. Prior Treatments and Tests X-ray Treatment Goals Patient/Caregiver Goals Goals for PT are to be able to walk better and get back to normal activities. PT-OP-C Subjective Start: 11/22/19 09:55 Freq: Status: Active Protocol: Document 12/20/19 12:09 MB (Rec: 12/20/19 12:51 MB [id number]) OP-PT Subjective Patient Comments Patient Comments Pt states that she is doing good. She post-poned appointment with Dr. Arredondo d /t long drive and COVID issue. PT-OP-D Balance Start: 11/22/19 09:55 Freq: Status: Active Protocol: Document 11/22/19 09:56 MB (Rec: 11/22/19 11:00 MB [id number]) Balance Tests Other Other Balance Tests Performed Pt does not full WB through right foot in standing and uses walking stick as cane, which is not very steady. Formal balance testing deferred. PT-OP-G Mobility & Gait Start: 11/22/19 09:55 Freq: Status: Active Protocol: Document 11/22/19 09:56 MB (Rec: 11/22/19 11:00 MB [id number]) OP Gait Assessment Gait Gait Assistance Required: Standby Assistance Distance (Feet) 100 Able to Maintain Weight Bearing Status Yes During Gait Gait Deviations General Gait Pattern Decreased Stride Length, Decreased Feet Clearance, Flexed Trunk,Lateral Trunk Lean Factors Limiting Gait Function Factors Limiting Gait Function Limited Range of Motion,Pain, Poor Balance Comments Gait Comments Pt uses walking stick in left hand. The stick is low, like a cane, but does not offer support like a cane d/t the handle. Ed patient in this and benefits of cane or traying the walking stick at raised height. PT-OP-J Posture/Palpation/Skin Start: 11/22/19 09:55 Freq: Status: Active Protocol: Document 11/22/19 09:56 MB (Rec: 11/22/19 11:02 MB [id number]) Skin Assessment Other Assessments Skin Assessment Comments See ankle circumference measurement under ROM. Pt presents with bruising over right great toe. Her proprioception in toes is normal. PT-OP-K Range of Motion Start: 11/22/19 09:55 Freq: Status: Active Protocol: Document 11/22/19 09:56 MB (Rec: 11/22/19 11:00 MB [id number]) Ankle and Foot Goniometric Range of Motion Ankle and Foot Right Ankle/Foot ROM WFL No Testing Position Supine Inversion 20 Eversion 5 Left Ankle/Foot ROM WFL Yes Testing Position Supine Ankle and Foot ROM Limitations Comments Pt presents with self-limiting behaviors with foot motion. She presents with right active AROM DF and PF 50% range compared to the left in supine with leg supported Pt presents with edema right ankle with figure 8 circumference 49 cm and left 47 cm. PT-OP-M Strength Start: 11/22/19 09:55 Freq: Status: Active Protocol: Document 11/22/19 09:56 MB (Rec: 11/22/19 11:00 MB [id number]) Hip Strength Hip Manual Muscle Testing Right Flexion (L2) 3+ Fair+ Abduction 3+ Fair+ Left Flexion (L2) 4 Good Abduction 3+ Fair+ Knee Strength Knee Manual Muscle Testing Right Flexion (S2) 3+ Fair+ Extension (L3) 3+ Fair+ Left Flexion (S2) 4 Good Extension (L3) 4 Good Ankle/Foot Strength Ankle and Foot Manual Muscle Testing Right Comments MMT not tested d/t symptomology and pt fear Left Dorsiflexion (L4) 5 Normal Plantarflexion (S1) 4 Good Inversion 5 Normal Eversion (S1) 5 Normal Comments PF assessed supine PT-OP-Q Treatments Start: 11/22/19 09:55 Freq: Status: Active Protocol: Document 12/20/19 12:09 MB (Rec: 12/20/19 12:51 MB [id number]) Therapeutic Exercises Supine Exercises Bridge with band Reps/Minutes Holds 1 minute Comments 1 rep, pt holds as long as possible Hip abduction with band in hook lying Comments 5 reps slowly with cues for abdominal drawing in Standing Exercises Tandem Standing Exercise Name Romberg standing is too easy Comments Pt has trouble holding greater than 5 B, will perform in corner at home PT-OP-T Assessment and Plan Start: 11/22/19 09:55 Freq: Status: Active Protocol: Document 12/20/19 12:09 MB (Rec: 12/20/19 12:51 MB [id number]) Physical Therapy Assessment Rehab Potential Rehabilitation Potential Fair Evaluation Complexity Number of Personal Factors/Comorbidities 1-2 Number of Body Systems Impaired 1-2 Clinical Presentation at Evaluation Evolving Impairments Impairments Activity Tolerance,Balance, Edema,Gait,Pain,ROM,Soft Tissue Mobility,Strength Other Impairments Pt with advanced age, fractures in setting of OP, history of dizziness and falls . This fall was mechanical, tripped over cord. Goals 5 Fdc Goal (LTG) Pt will ascend and descend 7 steps with 1 rail to allow safe home mobility by 2019. 12/20/2019: No trouble performing stairs with 1 rail LTG Duration 8 weeks 4 Channeling Machine Operator Goal (LTG) Pt will perform HEP with I including balance, flexibility , strengthening and gait to improve strength and walking by 01/21/2020. 12/20/2019: Pt is performing progressive HEP LTG Duration 8 weeks 3 Fdc Goal (LTG) Pt will perform WNLs on a standardized balance test to decrease fall risk by 2019. 12/20/2019: Added balance exercise for HEP today--Tandem as Romberg is too easy. LTG Duration 8 weeks 2 Fdc Goal (LTG) Pt will gait train at least 900 feet in 6 minutes with or without AD to improve community ambulation safety and speed by 01/21/2020. 12/20/2019: 1450 ft in 6 minutes LTG Duration 8 weeks 1 Fdc Goal (LTG) Pt will present with an improved LE functional index score to reflect no more than 20% impairment to reflect improved functional mobility by 01/21/2020. 12/20/2019: LEF score reflects 28.75% dysfunction LTG Duration 8 weeks Assessment Summary Assessment Pt requests to d/c. She is nervous about COVID. Reviewed exercises today. She has progressed towards exercise, LEF score and has met gait distance goal in 6 minutes. Added balance exercise today. Revised HEP: M/W/F Zenon and hamstring stretches T/Th/Sat Abdominal drawing in and core progression Clam with band in hook lying level 1 band As needed: Pelvic realignment exercises ABCs ankle Everday: balance exercise and foot hammock Physical Therapy Plan Frequency and Duration Frequency of Treatment 2x/Week Duration of Treatment 8 weeks Plan of Care Start Date 11/22/19 Plan of Care End Date 01/21/20 Therapeutic Interventions Therapeutic Interventions Aquatic Therapy,Balance Training,Canalithic Repositioning,Coordination Training,Gait Training,Home Exercise Program,Manual Therapy,Neuromuscular Re- education,Patient/Caregiver Education,Self-Care/Home Management,Soft Tissue Mobilization,Taping, Therapeutic Activities, Therapeutic Exercises Modalities Cold Pack/Ice Massage,Electric Stimulation,Hot Packs, Ultrasound Other Therapeutic Interventions LLT Discharge Physical Therapy Discharge Reasons Patient Request Discharge Comments Pt concerned about COVID
== END 2019-12-20 13:31 ==
LOC: PHYS 12:15
PROVIDERS: PCP Internal Medicine; Referring Provider Podiatrist; Visit Provider Podiatrist
DX: S92.351A Displaced fracture of fifth metatarsal bone, right foot, initial encounter for closed fracture (principal)
CPT/HCPCS: 97110; 97116; 97161

== ENCOUNTER → 2020-07-13 07:26 | Outpatient (CLI) | payer MEDICARE, SELFPAY ==
[2020-07-13 08:12] LABS: Add Manual Diff / Slide Review NO; Basophils Absolute Auto 0 /uL (0-100); Basophils Percent Auto 0.4 % (0-2); Eosinophils Absolute Auto 100 /uL (0-450); Eosinophils Percent Auto 1.5 % (2-4); Hematocrit 42.9 % (36-46); Hemoglobin 14.6 g/dL (12.0-16.0); Lymphocytes Absolute Auto 700 /uL (1100-4500); Lymphocytes Percent Auto 18.5 % (25-40); Mean Corpuscular HGB Conc 33.9 % (30-36); Mean Corpuscular Hemoglobin 31.4 PG (26-34); Mean Corpuscular Volume 92.5 fL (80-100); Monocytes Absolute Auto 400 /uL (0-900); Monocytes Percent Auto 11.6 % (3-14); Neutrophils Absolute Auto 2500 /uL (1500-7000); Platelet Count 187 X10^3/uL (150-400); Red Blood Cell Count 4.64 X10^6/uL (4.0-5.2); Red Cell Distribution Width 13.3 % (11.6-14.8); White Blood Cell Count 3.7 X10^3/uL (4.5-11.0)
[2020-07-13 08:43] LABS: Alanine Aminotransferase 26 IU/L (<35); Albumin 4.2 g/dL (3.5-5.0); Albumin Globulin Ratio 1.6 (1.0-2.8); Alkaline Phosphatase 77 U/L (38-126); Aspartate Aminotransferase 44 IU/L (14-36); BUN Creatinine Ratio 28.6 (6-22); Bilirubin Total 0.3 mg/dL (0.2-1.3); Blood Urea Nitrogen 16 mg/dL (7-17); Calcium 9.1 mg/dL (8.4-10.2); Carbon Dioxide 31 mmol/L (22-32); Chloride 95 mmol/L (98-107); Cholesterol 203 mg/dL (140-199); Estimated Glomerular Filt Rate > 60.0 mL/min (>60); Globulin 2.6 g/dL (1.7-4.1); Glucose 88 mg/dL (80-110); HDL Cholesterol 104 mg/dL (40-60); HEMOLYSIS < 15 (0-50); LDL Cholesterol Calculated 89 mg/dL (<100); Phenytoin / Dilantin < 3.0 ug/mL (10-20); Potassium 4.2 mmol/L (3.4-5.1); Sodium 130 mmol/L (137-145); Total Protein 6.8 g/dL (6.3-8.2); Triglycerides 50 mg/dL (35-150)
[2020-07-13 09:10] LABS: TSH w/ Reflex to FT4 3.17 uIU/mL (0.47-4.68)
[2020-07-13 09:29] LABS: Vitamin B12 410 pg/mL (239-931)
== END ==
PROVIDERS: PCP Family Medicine; Referring Provider Family Medicine; Visit Provider Family Medicine
DX: E03.9 Hypothyroidism, unspecified (principal); E78.5 Hyperlipidemia, unspecified
CPT/HCPCS: 36415; 80053; 80061; 80185; 82607; 84443; 85025

== ENCOUNTER → 2021-02-07 09:48 | Outpatient (CLI) | payer MEDICARE, SELFPAY ==
[2021-02-07 12:00] LABS: COVID19 -Nasal RAPID Negative (Negative)
== END ==
PROVIDERS: PCP Family Medicine; Visit Provider Nurse Practitioner
DX: Z20.822 Contact with and (suspected) exposure to COVID-19 (principal); R05 Cough; R53.83 Other fatigue
CPT/HCPCS: 87635

== ENCOUNTER → 2021-02-12 10:38 | Outpatient (CLI) | payer MEDICARE, SELFPAY ==
[2021-02-12 12:35] LABS: COVID19 -Nasal RAPID Negative (Negative)
== END ==
PROVIDERS: PCP Family Medicine; Visit Provider Nurse Practitioner Family
DX: Z20.822 Contact with and (suspected) exposure to COVID-19 (principal); R53.83 Other fatigue; R05 Cough
CPT/HCPCS: 87635

== ENCOUNTER → 2021-04-20 08:41 | Outpatient (CLI) | payer MEDICARE, SELFPAY ==
[2021-04-20] MEDS: COVID-19 VACC #3, MRNA(MOD) 50 MCG/0.25 ML VIAL IM (08:55)
== END ==
PROVIDERS: PCP Family Medicine; Visit Provider Internal Medicine
DX: Z23 Encounter for immunization (principal)
CPT/HCPCS: 0013A; 91301

== ENCOUNTER → 2021-07-09 11:42 | Outpatient (CLI) | payer MEDICARE, SELFPAY ==
[2021-07-09 13:20] LABS: COVID19 -Nasal RAPID Negative (Negative)
== END ==
PROVIDERS: PCP Family Medicine; Referring Provider Family Medicine Sleep Medicine; Visit Provider Family Medicine Sleep Medicine
DX: Z20.822 Contact with and (suspected) exposure to COVID-19 (principal)
CPT/HCPCS: 87635; C9803

== ENCOUNTER 2021-07-11 08:24 | Day surgery (SDC) | payer MEDICARE, SELFPAY ==
--- NOTE | 2021-07-10 19:36 | PM.PREOP ---
Pre-operative Note COVID-19 COVID-19 status: Negative Criteria for continued procedure: Expected advancement of disease process, Possibility delay results in more complex future surgery or treatment, Increased loss of function, Delay expected to result in less-positive ultimate med/surg outcome and Non-surgical alternatives not available or appropriate per current SOC Interval Note History & Physical reviewed/Exam performed by Physician: Yes Changes to H&P: No
--- NOTE | 2021-07-10 19:37 | P.OP_ITS ---
Operative Date/Time/Diagnoses Date of procedure: 07/11/21 Time of procedure: 09:45 Procedure & Clinicians Procedure: Preoperative diagnoses: 1. Complexright cortical and Nuclear sclerotic cataract and need for capsular dye. 2. Astigmatism which is to be corrected with a toric intraocular lens implant. 3. Anxiety 4. Depression 5. Hearing loss Postoperative diagnoses: 1. Right Cataract removal with phacoemulsification with toric posterior chamber intraocular lens implant placed and use of capsular dye Procedure: CompPhacoemulsification with posterior chamber toric intraocular lens implant and use of capsular dye Surgeon: Colleen Reilly MD Complications: None Specimen: None Implant: [id number] [place] 050 Blood loss: None Anesthesia: Retrobulbar with monitored standby Description of procedure: Patient presents with a complaint of decreased v ision due to cataract which is affecting activities of daily living especially night driving. The patient wants surgery to improve vision and astigmatism. She has been delayed due to the COVID-19 epidemic for surgery now has advanced cataract with needed capsular dye. She has high astigmatism elects correction for this with a distance target. Further delay in surgery will continue to increase complication like. The patient understands the extra risk of surgery during the COVID-19 epidemic and wishes to proceed. The patient has tested negative for active virus within 72 hours of the procedure. The patient was taken to the operating room and proparacaine drops placed. Indelible ink miner were placed at the 90 and 180 degree meridian. The patient was placed on the operating room table and given IV sedation. A retrobulbar block insert consisting of 6 cc of 2% xylocaine without epinephrine mixed half and half with 0.5% Marcaine with 1 cc of hyaluronidase added is placed between the medial and lateral 1/3 of the inferior orbital rim. The eye is manually massaged for 30 sec, prepped using Betadine solution, and draped in the usual sterile fashion. Temporal approach was made, a 1 mm side-port incision was made 90? from the proposed corneal wound. Phenylephrine 1.5% mixed with 1% xylocaine 0.2 cc was placed into the anterior chamber. An air bubble was placed followed by capsular dye to improve visibility. The extra air was then irrigated out with BSS. Endocoat followed by Healon was then placed. A 2.6 mm clear incision with a 2.6 mm blade was placed at the 170 degree meridian. A 360 degree capsulorrhexis style capsulotomy was then performed with a cystitome needle on a [employer]. Hydrodelineation and hydrodissection were performed. The phacoemulsification unit is introduced, and sculpting used to groove the central lens. It is then removed in chopping mode. Epi nucleus is removed with epinuclear mode and irrigation aspiration was used to remove the peripheral cortex. There was ballooning of the conjunctiva due to fluid between the layers and therefore small little next with a 1 mm blade were done to drain that fluid the residual cortex is left except for small amount of subincisional cortex posterior capsule is polished. The intraocular lens is selected, inspected, power confirmed, and placed in the posterior chamber at the desired meridian of 50?. Extra viscoelastic was placed in the lens of positioned several times to get to the exact desired location. The viscoelastic was then removed. The pupil was not constricted. The wound was stromally hydrated and tested for leaks, there was none and it was left sutureless. Vigamox 0.1 cc was placed into the anterior chamber. Kenalog 0.2 cc was placed in the superior subconjunctival space. A drop of antibiotic and was placed and the eye was patched and shielded. The patient was stable and returned to the recovery room in excellent condition. Dictated by: Colleen Reilly MD Copy to: [facility] Same procedure as scheduled: Yes
[2021-07-11] MEDS: PROPARACAINE 0.5% OPHTH SOL 2 DROPS EYE-OP ×2 (08:43→09:55)
[2021-07-11] MEDS: CATARACT EYE COMPOUND (10 DROPS/SYRINGE) 3 DROPS EYE-OP ×3 (08:49→09:00)
[2021-07-11 09:13] VITALS: BP 115/73; PULSE 53; RESP 16; TEMP 36.6; O2SAT 98
--- NOTE | 2021-07-11 09:51 | SUR.OPER ---
Supine on Padded OR bed, head on pillow, safety belt at thigh, arms secured on padded arm boards at <90 degrees abduction. Bump under right buttock. Legs uncrossed with pillow under knees, gel pad to heels, tape over blanket to lower legs.
[2021-07-11] MEDS: LIDOCAINE 2% 4 ML, BUPIVACAINE 0.5% (PF) 4 ML, HYALURONIDASE 150 UNIT INJ (10:09)
[2021-07-11] MEDS: ERYTHROMYCIN OPHTH 1 GM OINT 1 APPLIC EYE-RIGHT (10:21)
[2021-07-11] MEDS: HYALURONATE SODIUM 30 MG-10 MG/ML SYRINGES 1 BOX INTRAOCULA (10:21)
[2021-07-11] MEDS: MOXIFLOXACIN INJ 4 MG/0.8 ML VIAL 0.5 MG EYE-OP (10:21)
[2021-07-11] MEDS: PHENYLEPHRINE/LIDOCAINE VIAL (OR) 0.2 ML EYE-OP (10:21)
[2021-07-11] MEDS: TRIAMCINOLONE 50 MG/5 ML VIAL INJ (10:22)
[2021-07-11] MEDS: TRYPAN BLUE 0.5 ML SYRINGE INJ (10:22)
[2021-07-11] MEDS: BALANCED SALT IRRIG SOLN NO.2 500 ML, EPINEPHrine 1 MG IRR (10:23)
[2021-07-11 11:03] VITALS: BP 131/83; PULSE 54; RESP 18; TEMP 36.7; O2SAT 96
== END 2021-07-11 11:35 | disposition home or self-care (01) ==
LOC: OR 08:25
PROVIDERS: PCP Family Medicine; Referring Provider Ophthalmology; Visit Provider Ophthalmology
PROC: (CPT 66984; principal; 2021-07-11 09:45)
DX: H25.811 Combined forms of age-related cataract, right eye (principal); H52.201 Unspecified astigmatism, right eye; F41.9 Anxiety disorder, unspecified; F32.9 Major depressive disorder, single episode, unspecified
CPT/HCPCS: 66984; J0171; J2704; J3301; J3470; V2787

== ENCOUNTER → 2021-07-30 15:24 | Outpatient (CLI) | payer MEDICARE, SELFPAY ==
[2021-07-30 16:57] LABS: COVID19 -Nasal RAPID Negative (Negative)
== END ==
PROVIDERS: PCP Family Medicine; Visit Provider Family Medicine Sleep Medicine
DX: Z20.822 Contact with and (suspected) exposure to COVID-19 (principal)
CPT/HCPCS: 87635; C9803

== ENCOUNTER → 2021-08-01 06:25 | Day surgery (SDC) | payer MEDICARE, SELFPAY ==
--- NOTE | 2021-07-30 17:12 | PM.PREOP ---
Pre-operative Note COVID-19 COVID-19 status: Negative Criteria for continued procedure: Expected advancement of disease process, Possibility delay results in more complex future surgery or treatment, Increased loss of function, Delay expected to result in less-positive ultimate med/surg outcome and Non-surgical alternatives not available or appropriate per current SOC Interval Note History & Physical reviewed/Exam performed by Physician: Yes Changes to H&P: No H&P completed within 30 days and has changed as indicated here:: Patient's case was canceled due to humidity problems in the operating room. No IV or dilating drops had been placed at that time. She will be rescheduled.
--- NOTE | 2021-07-30 17:14 | PM.OP.1 ---
Operative Date/Time/Diagnoses Date of procedure: 08/01/21 Time of procedure: 07:45 Procedure & Clinicians Procedure: Preoperative diagnoses: 1. Significant left cortical and Nuclear sclerotic cataract 2. Astigmatism which is to be corrected with a toric intraocular lens implant. 3. Anxiety 4. Depression 5. Arthritis 6. Hearing loss 7. Hypothyroidism Postoperative diagnoses: 1. Cataract removal with phacoemulsification with toric posterior chamber intraocular lens implant placed. Procedure: Phacoemulsification with posterior chamber toric intraocular lens implant. Surgeon: Colleen Reilly MD Complications: None Specimen: None Implant: [id number] [place] 155 with a -1.00 target Blood loss: None Anesthesia: Retrobulbar with monitored standby Description of procedure: Patient presents with a complaint of decreased vision due to cataract which is affecting activities of daily living especially night driving. The patient wants surgery to improve vision and astigmatism. The patient understands the extra risk of surgery during the COVID-19 epidemic and wishes to proceed. She is complaining of imbalance since her recent right successful cataract surgery and desires a mini mono vision -1 target. patient has tested negative for active virus within 72 hours of the procedure. The patient was taken to the operating room and proparacaine drops placed. Indelible ink miner were placed at the 90 and 180 degree meridian. The patient was placed on the operating room table and given IV sedation. A retrobulbar block insert consisting of 6 cc of 2% xylocaine without epinephrine mixed half and half with 0.5% Marcaine with 1 cc of hyaluronidase added is placed between the medial and lateral 1/3 of the inferior orbital rim. The eye is manually massaged for 30 sec, prepped using Betadine solution, and draped in the usual sterile fashion. Temporal approach was made, a 1 mm side-port incision was made 90? from the proposed corneal wound. Phenylephrine 1.5% mixed with 1% xylocaine 0.2 cc was placed into the anterior chamber. An air bubble was placed followed by vision blue capsular dye. This was then irrigated with BSS to remove excess. Endocoat followed by Healon was then placed. A 2.6 mm clear incision with a 2.6 mm blade was placed at the 170 degree meridian. A 360 degree capsulorrhexis style capsulotomy was then performed with a cystitome needle on a Healon. Hydrodelineation and hydrodissection were performed. The phacoemulsification unit is introduced, and sculpting used to groove the central lens. It is then removed in chopping mode. Epi nucleus is removed with epinuclear mode and irrigation aspiration was used to remove the peripheral cortex. The posterior capsule is polished. The intraocular lens is selected, inspected, power confirmed, and placed in the posterior chamber at the desired meridian. The pupil was not constricted. The wound was stromally hydrated and tested for leaks, there was none and it was left sutureless. Intracameral moxifloxacin 0.1 cc was placed into the anterior chamber. Kenalog 0.2 cc was placed in the superior subconjunctival space. A drop of antibiotic and was placed and the eye was patched and shielded. The patient was stable and returned to the recovery room in excellent condition. Dictated by: Colleen Reilly MD Copy to: [facility]
[2021-08-01 07:04] VITALS: BP 131/74; PULSE 50; RESP 16; TEMP 36.8; O2SAT 100; BMI 19.1
== END | disposition home or self-care (01) ==
PROVIDERS: PCP Family Medicine; Referring Provider Ophthalmology; Visit Provider Ophthalmology

== ENCOUNTER → 2021-08-17 10:33 | Outpatient (CLI) | payer MEDICARE, SELFPAY ==
[2021-08-17 14:56] LABS: COVID19 -Nasal RAPID Negative (Negative)
== END ==
PROVIDERS: PCP Family Medicine; Visit Provider Nurse Practitioner Family
DX: Z20.822 Contact with and (suspected) exposure to COVID-19 (principal)
CPT/HCPCS: 87635; C9803

== ENCOUNTER 2021-08-20 13:54 | Day surgery (SDC) | payer MEDICARE, SELFPAY ==
--- NOTE | 2021-08-19 17:05 | PM.PREOP ---
Pre-operative Note COVID-19 COVID-19 status: Negative Criteria for continued procedure: Expected advancement of disease process, Possibility delay results in more complex future surgery or treatment, Delay expected to result in less-positive ultimate med/surg outcome and Non-surgical alternatives not available or appropriate per current SOC Interval Note History & Physical reviewed/Exam performed by Physician: Yes Changes to H&P: No
--- NOTE | 2021-08-19 17:30 | PM.OP.1 ---
Operative Date/Time/Diagnoses Date of procedure: 08/20/21 Time of procedure: 15:15 Procedure & Clinicians Procedure: Preoperative diagnoses: 1. Significant left cortical and Nuclear sclerotic cataract 2. Astigmatism which is to be corrected with a toric intraocular lens implant. 3. Anxiety 4. Hearing loss 5. Hypothyroidism 6. Arthritis Postoperative diagnoses: 1. Cataract removal with phacoemulsification with toric posterior chamber intraocular lens implant placed. Procedure: Phacoemulsification with posterior chamber toric intraocular lens implant. Surgeon: Colleen Reilly MD Complications: None Specimen: None Implant: [id number] [place] 155 Target -1.00 Blood loss: None Anesthesia: Retrobulbar with monitored standby Description of procedure: Patient presents with a complaint of decreased vision due to cataract which is affecting activities of daily living especially night driving. She also has had difficulty reading since her last cataract surgery due to the unequal prescriptions and high astigmatism. She desires a mini mono vision target in this eye of -1. The patient wants surgery to improve vision and astigmatism. The patient understands the extra risk of surgery during the COVID-19 epidemic and wishes to proceed. The patient has tested negative for active virus within 72 hours of the procedure. The patient was taken to the operating room and proparacaine drops placed. Indelible ink miner were placed at the 90 and 180 degree meridian. The patient was placed on the operating room table and given IV sedation. A retrobulbar block insert consisting of 6 cc of 2% xylocaine without epinephrine mixed half and half with 0.5% Marcaine with 1 cc of hyaluronidase added is placed between the medial and lateral 1/3 of the inferior orbital rim. The eye is manually massaged for 30 sec, prepped using Betadine solution, and draped in the usual sterile fashion. Temporal approach was made, a 1 mm side-port incision was made 90? from the proposed corneal wound. Phenylephrine 1.5% mixed with 1% xylocaine 0.2 cc was placed into the anterior chamber. Due to posterior subcapsular plaque and lack of red reflex an air bubble was placed followed by visionblue dye.Excess was removed with BSS. Endocoat followed by Healon was then placed. A 2.6 mm clear incision with a 2.6 mm blade was placed at the 170 degree meridian. A 360 degree capsulorrhexis style capsulotomy was then performed with a cystitome needle on a [facility] greatly aided by the capsular dye. Hydrodelineation and hydrodissection were performed. The phacoemulsification unit is introduced, and sculpting used to groove the central lens. It is then removed in chopping mode. Epi nucleus is removed with epinuclear mode and irrigation aspiration was used to remove the peripheral cortex. The posterior capsule is polished. The intraocular lens is selected, inspected, power confirmed, and placed in the posterior chamber at the desired meridian. The pupil was not constricted. The wound was stromally hydrated and tested for leaks, there was none and it was left sutureless. Intracameral moxifloxacin 0.1 cc was placed into the anterior chamber. Kenalog 0.2 cc was placed in the superior subconjunctival space. A drop of antibiotic and was placed and the eye was patched and shielded. The patient was stable and returned to the recovery room in excellent condition. Dictated by: Colleen Reilly MD Copy to: [facility] Same procedure as scheduled: Yes
[2021-08-20] MEDS: CATARACT EYE COMPOUND (10 DROPS/SYRINGE) 3 DROPS EYE-OP (14:40)
[2021-08-20] MEDS: PROPARACAINE 0.5% OPHTH SOL 2 DROPS EYE-OP (14:40)
[2021-08-20 15:01] VITALS: BP 137/77; PULSE 54; RESP 100; TEMP 36.6; O2SAT 100; BMI 19.1
--- NOTE | 2021-08-20 17:00 | SUR.OPER ---
Supine on eye stretcher, head on extension cradle secured with tape. Arms tucked at sides with blanket. Pillow under knees.
[2021-08-20] MEDS: HYALURONATE SODIUM 30 MG-10 MG/ML SYRINGES 1 BOX INTRAOCULA (17:05)
[2021-08-20] MEDS: MOXIFLOXACIN INJ 4 MG/0.8 ML VIAL 0.5 MG EYE-OP (17:05)
[2021-08-20] MEDS: PHENYLEPHRINE/LIDOCAINE VIAL (OR) 0.2 ML EYE-OP (17:06)
[2021-08-20] MEDS: TRIAMCINOLONE 50 MG/5 ML VIAL INJ (17:06)
[2021-08-20] MEDS: LIDOCAINE 2% 4 ML, BUPIVACAINE 0.5% (PF) 4 ML, HYALURONIDASE 150 UNIT INJ (17:07)
[2021-08-20] MEDS: BALANCED SALT IRRIG SOLN NO.2 500 ML, EPINEPHrine 1 MG IRR (17:07)
[2021-08-20] MEDS: TRYPAN BLUE 0.5 ML SYRINGE INJ (17:08)
[2021-08-20] MEDS: ERYTHROMYCIN OPHTH 1 GM OINT 1 APPLIC EYE-LEFT (17:08)
[2021-08-20 17:23] VITALS: BP 152/78; PULSE 56; RESP 18; TEMP 36.8; O2SAT 98
--- NOTE | 2021-08-20 17:45 | SUR.PHASEII ---
Pt discharged to homewith firend after taking juice and walking to steady.
== END 2021-08-20 17:40 | disposition home or self-care (01) ==
LOC: OR 13:57
PROVIDERS: PCP Family Medicine; Referring Provider Ophthalmology; Visit Provider Ophthalmology
PROC: (CPT 66984; principal; 2021-08-20 15:15)
DX: H25.812 Combined forms of age-related cataract, left eye (principal); H52.202 Unspecified astigmatism, left eye; F41.9 Anxiety disorder, unspecified; E03.9 Hypothyroidism, unspecified
CPT/HCPCS: 66984; J0171; J2704; J3301; J3470; V2787

== ENCOUNTER → 2021-09-14 07:39 | Outpatient (CLI) | payer MEDICARE, SELFPAY ==
[2021-09-14 08:15] LABS: Add Manual Diff / Slide Review NO; Basophils Absolute Auto 0 /uL (0-100); Basophils Percent Auto 0.5 % (0-2); Eosinophils Absolute Auto 100 /uL (0-450); Eosinophils Percent Auto 2.6 % (2-4); Hematocrit 41.8 % (36-46); Hemoglobin 14.3 g/dL (12.0-16.0); Lymphocytes Absolute Auto 700 /uL (1100-4500); Lymphocytes Percent Auto 20.3 % (25-40); Mean Corpuscular HGB Conc 34.2 % (30-36); Mean Corpuscular Hemoglobin 31.3 PG (26-34); Mean Corpuscular Volume 91.7 fL (80-100); Monocytes Absolute Auto 400 /uL (0-900); Monocytes Percent Auto 13.8 % (3-14); Neutrophils Absolute Auto 2000 /uL (1500-7000); Neutrophils Percent Auto 62.8 % (50-75); Platelet Count 182 X10^3/uL (150-400); Red Blood Cell Count 4.56 X10^6/uL (4.0-5.2); Red Cell Distribution Width 13.6 % (11.6-14.8); White Blood Cell Count 3.2 X10^3/uL (4.5-11.0)
[2021-09-14 08:30] LABS: Alanine Aminotransferase 32 IU/L (<35); Albumin 4.3 g/dL (3.5-5.0); Albumin Globulin Ratio 1.8 (1.0-2.8); Alkaline Phosphatase 61 U/L (38-126); Aspartate Aminotransferase 42 IU/L (14-36); BUN Creatinine Ratio 27.4 (6-22); Bilirubin Total 0.5 mg/dL (0.2-1.3); Blood Urea Nitrogen 17 mg/dL (7-17); Calcium 8.7 mg/dL (8.4-10.2); Carbon Dioxide 28 mmol/L (22-32); Chloride 97 mmol/L (98-107); Cholesterol 204 mg/dL (140-199); Estimated Glomerular Filt Rate > 60.0 mL/min (>60); Globulin 2.4 g/dL (1.7-4.1); Glucose 86 mg/dL (80-110); HDL Cholesterol 102 mg/dL (40-60); HEMOLYSIS < 15 (0-50); LDL Cholesterol Calculated 89 mg/dL (<100); Potassium 4.2 mmol/L (3.4-5.1); Sodium 132 mmol/L (137-145); Total Protein 6.7 g/dL (6.3-8.2); Triglycerides 64 mg/dL (35-150)
[2021-09-14 08:44] LABS: Free T3, Triiodothyronine Free 2.71 pg/mL (2.77-5.27); Free T4, Direct Thyroxine 1.44 ng/dL (0.78-2.19)
[2021-09-14 08:57] LABS: Thyroid Stimulating Hormone 4.77 uIU/mL (0.47-4.68)
== END ==
PROVIDERS: PCP Family Medicine; Referring Provider Family Medicine; Visit Provider Family Medicine
DX: E78.2 Mixed hyperlipidemia (principal); E03.9 Hypothyroidism, unspecified
CPT/HCPCS: 36415; 80053; 80061; 84439; 84443; 84481; 85025

== ENCOUNTER → 2021-12-03 16:11 | Outpatient (CLI) | payer MEDICARE, SELFPAY ==
[2021-12-03 17:50] LABS: Free T4, Direct Thyroxine 1.59 ng/dL (0.78-2.19)
[2021-12-03 18:04] LABS: Thyroid Stimulating Hormone 1.02 uIU/mL (0.47-4.68)
== END ==
PROVIDERS: PCP Family Medicine; Referring Provider Family Medicine; Visit Provider Family Medicine
DX: E03.9 Hypothyroidism, unspecified (principal)
CPT/HCPCS: 36415; 84439; 84443; 84481

== ENCOUNTER → 2022-01-07 16:58 | Outpatient (CLI) | payer MEDICARE, SELFPAY ==
--- NOTE | 2022-01-07 16:59 | DI.RAD.S_ITS ---
PROCEDURE: XR HIP W PEL IF DONE RT 2V INDICATIONS: pain TECHNIQUE: AP pelvis with lateral view(s) of the right hip(s). COMPARISON: None. FINDINGS: Bones: Severe right hip joint osteoarthritic changes are seen with near complete loss of joint space, subchondral sclerosis and cyst formation and prominent lateral marginal osteophyte formation. No fractures or dislocations. No evidence of avascular necrosis of femoral head. There is prior left total hip arthroplasty. No gross hardware loosening or failure. Pelvic ring appears intact. No suspicious bony lesions. Soft tissues: The visualized bowel gas pattern is normal. No suspicious soft tissue calcifications. IMPRESSION: Severe right hip joint osteoarthritis. No fracture or dislocation. No evidence of avascular necrosis. Dictated by: Mat Mercado M.D. on 01/07/2022 at 16:53 Approved by: Mat Mercado M.D. on 01/07/2022 at 16:54
== END ==
PROVIDERS: PCP Family Medicine; Referring Provider Family Medicine; Visit Provider Family Medicine
DX: M16.11 Unilateral primary osteoarthritis, right hip (principal); M25.551 Pain in right hip
CPT/HCPCS: 73502

== ENCOUNTER 2022-05-21 13:45 | Outpatient (RCR) | payer MEDICARE, SELFPAY ==
--- NOTE | 2022-02-06 13:01 | PT.OIE ---
Current Diagnoses Pain in right hip (02/06/22) Segmental and somatic dysfunction of pelvic region (02/06/22) Difficulty in walking, not elsewhere classified (02/06/22) Abnormal posture (02/06/22) Weakness (02/06/22) Past Medical History (Last Updated 01/16/22 @ 15:06 by Ambreen Bradford MA) Acute buttock pain Acute right hip pain Atrial flutter (~2008) Balance problem due to vestibular dysfunction Dysplasia of cervix Eye problem (~2016) Hearing loss (~2014) Hyperlipidemia Hypothyroidism (acquired) (~2004) Imbalance Lymphocytopenia Medicare annual wellness visit, initial Osteoarthritis Pain of right thumb Pelvic somatic dysfunction Physician orders for life-sustaining treatment (POLST) form indicates patient wish for fg-[id number] status Sacral region somatic dysfunction Somatic dysfunction of lower extremity Upper extremity somatic dysfunction Vertigo Past Surgical History (Last Updated 06/19/20 @ 20:22 by Tatiana Dukes) Anesthesia History of left hip replacement (~12/2015) Visit Care Team Role Provider Type Shahriar Valente DO Attending Provider Physician Family Provider Primary Care Provider Referring Provider Specialty: [facility] Address: [address] [place] [address], [facility] Email: Physical Therapy Initial Evaluation PT-OP-A Visit Information Start: 02/04/22 08:35 Freq: Status: Active Protocol: Document 02/06/22 08:24 [facility] (Rec: 02/06/22 09:02 [facility] [id number]) Out-Patient Physical Therapy Visit Information Visit Information Visit Type Initial Evaluation Visit Note 06/18 Visit Start Time 08:21 Visit Stop Time 09:01 Total Visit Minutes 40 Visit Number 1 Number of SHRINK PIT SUPERVISOR Visits 0 PT-OP-B Current Condition Start: 02/04/22 08:35 Freq: Status: Active Protocol: Document 02/06/22 08:24 [facility] (Rec: 02/06/22 09:02 [facility] [id number]) Current Condition History of Current Condition Onset Date December worsening Current Complaints R hip History of Current Condition Pt has R hip pain and notes when she walks for longer distances. Pt reports in December she had a lot of company and was up/down staris a lot and was on feet a lot and after that she noticed it start to really bother her. She is hopign to put of a hip replacement. She had L ant MICHAEL in December of 2015 and was told by surgeon to avoid knee going all the way to the chest. She feels like seh cannot go for hikes or walks d/t pain. She likes to walk at a good pace and would walk a few miles 5 days a week with occ longer hikes. Prior to December, pt was able to do her consistant walks and only had the pain occ. Recently, she has only gone about 3-4x/week and walked about 1/2 of what she did before (so about 1 mile) and some of those walks, her pain would start to get pretty bad. Pt reports balacne problems. Last fall was before moving here about 2.5 years ago in the house when she was rushing around tripped over cord. Otherwsie a few other falls throughout the years, tripping over a curb and fell stepping over a branch in her driveway. She does do Silver Sneakers and has been missing that occ d/t pain. Prior Treatments and Tests Xray:IMPRESSION: Severe right hip joint osteoarthritis. No fracture or dislocation. No evidence of avascular necrosis . Seeing DO for treatment Treatment Goals Patient/Caregiver Goals avoid MICHAEL, be able to walk more PT-OP-C Subjective Start: 02/04/22 08:35 Freq: Status: Active Protocol: Document 02/06/22 08:24 [facility] (Rec: 02/06/22 09:02 [facility] [id number]) Patient Questionnaires Lower Extremity Functional Scale LEFS Score 42 OP-PT Pain Assessment Location R hip Pain Location Details R ant hip and groin & occ buttocks Intensity 7 Scale Used Numeric (0 - 10) Description With Movement Frequency Frequent Pain Aggravating Factors Activity,Standing,Walking, Stair Climbing Other Pain Aggravating Factors occ @ night, lifting to get socks/shoes on Other Pain Alleviating Factors tylenol, ibuprofen PT-OP-D Balance Start: 02/04/22 08:35 Freq: Status: Active Protocol: Document 02/06/22 08:24 [facility] (Rec: 02/06/22 09:02 [facility] [id number]) Balance Tests Single Limb Standing Single Limb- Right 4 sec w/a lot f deviations Single Limb- Left 6 sec w/deviation PT-OP-G Mobility & Gait Start: 02/04/22 08:35 Freq: Status: Active Protocol: Document 02/06/22 08:24 [facility] (Rec: 02/06/22 09:02 [facility] [id number]) OP Gait Assessment Comments Gait Comments dec stance time on RLE and fwd flex on R side w/WB. dec push off PT-OP-K Range of Motion Start: 02/04/22 08:35 Freq: Status: Active Protocol: Document 02/06/22 08:24 [facility] (Rec: 02/06/22 09:02 [facility] [id number]) Hip Goniometric Range of Motion Hip Right Active Flexion w/Knee Flexed 91 Straight Leg Raise 48 Left Active Flexion w/Knee Flexed 100 Straight Leg Raise 47 PT-OP-L Special Tests Start: 02/04/22 08:35 Freq: Status: Active Protocol: Document 02/06/22 08:24 [facility] (Rec: 02/06/22 09:02 [facility] [id number]) Special Tests Hip Special Tests Astrid's Test Results positive R PT-OP-M Strength Start: 02/04/22 08:35 Freq: Status: Active Protocol: Document 02/06/22 08:24 [facility] (Rec: 02/06/22 09:02 [facility] [id number]) Hip Strength Hip Manual Muscle Testing Right Flexion (L2) 4- Good- Extension (S1) 3+ Fair+ Abduction 3+ Fair+ Adduction 4- Good- External Rotation 4- Good- Internal Rotation 3+ Fair+ Left Flexion (L2) 3+ Fair+ Extension (S1) 3+ Fair+ Abduction 4- Good- Adduction 4- Good- External Rotation 3+ Fair+ Internal Rotation 4 Good Knee Strength Knee Manual Muscle Testing Right Flexion (S2) 4- Good- Extension (L3) 4 Good Left Flexion (S2) 4- Good- Extension (L3) 4 Good Ankle/Foot Strength Ankle and Foot Manual Muscle Testing Right Dorsiflexion (L4) 5 Normal Plantarflexion (S1) 4 Good Left Dorsiflexion (L4) 5 Normal Plantarflexion (S1) 4 Good Comments PF tested seated PT-OP-T Assessment and Plan Start: 02/04/22 08:35 Freq: Status: Active Protocol: Document 02/06/22 08:24 [facility] (Rec: 02/06/22 09:02 [facility] [id number]) Physical Therapy Assessment Rehab Potential Rehabilitation Potential Good Evaluation Complexity Number of Personal Factors/Comorbidities 3 or More Number of Body Systems Impaired 4 or More Clinical Presentation at Evaluation Evolving Impairments Impairments Activity Tolerance,Balance, Functional Activities, Functional Mobility,Gait,Pain, Posture,ROM,Soft Tissue Mobility,Strength Goals activity Usp Goal (LTG) Pt will be able to move hip as needed for donning/doffing clothes and other ADLs w/o inc pain LTG Duration 05/08 walking Short Term Goal (STG) Pt will be able to do her 1 mile walks w/o inc pain greater than 2/10 STG Duration 04/07 Usp Goal (LTG) Pt will be able return to walking 2 miles w/o inc pain greater than 2/10. LTG Duration 05/08 balance Trash Truck Driver Goal (LTG) Pt will be able to do SLS for 10 sec w/o deviation to show improved ablance and stabiltiy LTG Duration 05/08 strength Short Term Goal (STG) Pt will be indep w/HEP STG Duration 03/28 Usp Goal (LTG) Pt will score at least 4+/5 on MMT testing for BLEs to show imrpoved strength and stabiltiy to allow pt to be more active. LTG Duration 05/08 LEFS Impairment 42 Short Term Goal (STG) Pt will impove LEFS score to at least 50/80 toshow impoved functional ability. STG Duration 03/23/22 Usp Goal (LTG) Pt will impove LEFS score to at least 62/80 toshow impoved functional ability. LTG Duration 05/08 Assessment Summary Assessment Pt presents w/R hip pain w/OA notable in recent Xrays with pt having worsening pain since December after she spent a lot of time on her feet. She has dec ROM, balance, and strength along with impaired gait mechanics with is likely relating to her pain. She has been unable to do her typical walks since this flared up in December and has a lot of pain even with shorter walks now. She hopes to avoid a MICHAEL or at least put it off. Pt would benefit from skileld PT to address these deficits and get pt more functional. Physical Therapy Plan Frequency and Duration Frequency of Treatment 2x/Week Duration of Treatment 3 months Plan of Care Start Date 02/06/22 Plan of Care End Date 05/08/22 Therapeutic Interventions Therapeutic Interventions Aquatic Therapy,Balance Training,Gait Training,Home Exercise Program,Joint Mobilizations,Manual Therapy, Neuromuscular Re-education, Patient/Caregiver Education, Self-Care/Home Management,Soft Tissue Mobilization,Taping, Therapeutic Activities, Therapeutic Exercises Modalities Cold Pack/Ice Massage,Electric Stimulation,Hot Packs, Infrared Therapy,Ultrasound Next Visit Focus/Plan Next Note Type Treatment Note Next Visit Plan HEP for core and glute strengthing & flexiblity, STM & joint mobs around R hip
--- NOTE | 2022-02-06 13:01 | PT.OPPOC ---
Physical, Occupational & Speech Therapy At [facility] Current Diagnoses Pain in right hip (02/06/22) Segmental and somatic dysfunction of pelvic region (02/06/22) Difficulty in walking, not elsewhere classified (02/06/22) Abnormal posture (02/06/22) Weakness (02/06/22) Visit Care Team Role Provider Type Shahriar Valente DO Attending Provider Physician Family Provider Primary Care Provider Referring Provider Specialty: [facility] Address: [address] [place] [address], [facility] Email: Plan Of Care PT-OP-T Assessment and Plan Start: 02/04/22 08:35 Freq: Status: Active Protocol: Document 02/06/22 08:24 [facility] (Rec: 02/06/22 09:02 [facility] [id number]) Physical Therapy Assessment Rehab Potential Rehabilitation Potential Good Evaluation Complexity Number of Personal Factors/Comorbidities 3 or More Number of Body Systems Impaired 4 or More Clinical Presentation at Evaluation Evolving Impairments Impairments Activity Tolerance,Balance, Functional Activities, Functional Mobility,Gait,Pain, Posture,ROM,Soft Tissue Mobility,Strength Goals activity Shelter Goal (LTG) Pt will be able to move hip as needed for donning/doffing clothes and other ADLs w/o inc pain LTG Duration 05/08 walking Short Term Goal (STG) Pt will be able to do her 1 mile walks w/o inc pain greater than 2/10 STG Duration 04/07 Production Foreman Goal (LTG) Pt will be able return to walking 2 miles w/o inc pain greater than 2/10. LTG Duration 05/08 balance Shelter Goal (LTG) Pt will be able to do SLS for 10 sec w/o deviation to show improved ablance and stabiltiy LTG Duration 05/08 strength Short Term Goal (STG) Pt will be indep w/HEP STG Duration 03/28 Shelter Goal (LTG) Pt will score at least 4+/5 on MMT testing for BLEs to show imrpoved strength and stabiltiy to allow pt to be more active. LTG Duration 05/08 LEFS Impairment 42 Short Term Goal (STG) Pt will impove LEFS score to at least 50/80 toshow impoved functional ability. STG Duration 03/23/22 Production Foreman Goal (LTG) Pt will impove LEFS score to at least 62/80 toshow impoved functional ability. LTG Duration 05/08 Assessment Summary Assessment Pt presents w/R hip pain w/OA notable in recent Xrays with pt having worsening pain since December after she spent a lot of time on her feet. She has dec ROM, balance, and strength along with impaired gait mechanics with is likely relating to her pain. She has been unable to do her typical walks since this flared up in December and has a lot of pain even with shorter walks now. She hopes to avoid a MICHAEL or at least put it off. Pt would benefit from skileld PT to address these deficits and get pt more functional. Physical Therapy Plan Frequency and Duration Frequency of Treatment 2x/Week Duration of Treatment 3 months Plan of Care Start Date 02/06/22 Plan of Care End Date 05/08/22 Therapeutic Interventions Therapeutic Interventions Aquatic Therapy,Balance Training,Gait Training,Home Exercise Program,Joint Mobilizations,Manual Therapy, Neuromuscular Re-education, Patient/Caregiver Education, Self-Care/Home Management,Soft Tissue Mobilization,Taping, Therapeutic Activities, Therapeutic Exercises Modalities Cold Pack/Ice Massage,Electric Stimulation,Hot Packs, Infrared Therapy,Ultrasound Next Visit Focus/Plan Next Note Type Treatment Note Next Visit Plan HEP for core and glute strengthing & flexiblity, STM & joint mobs around R hip Plan of Care Dates Plan of Care Start Date 02/06/22 Plan of Care End Date 05/08/22 Electronically Signed by: Sudha Stubbs, PT 02/06/22 9090 If you are in agreement with this Plan of Care, please return a signed and dated copy. I have reviewed this Plan of Care and certify that the skilled therapy services above are required to meet the patient?s needs. Physician Signature Date Printed Name and Credentials Clinical Instructor Signature Printed Name and Credentials
--- NOTE | 2022-02-12 12:19 | PT.OTN ---
Current Diagnoses Pain in right hip (02/12/22) Segmental and somatic dysfunction of pelvic region (02/12/22) Difficulty in walking, not elsewhere classified (02/12/22) Abnormal posture (02/12/22) Weakness (02/12/22) Physical Therapy Treatment Note PT-OP-A Visit Information Start: 02/04/22 08:35 Freq: Status: Active Protocol: Document 02/12/22 09:04 [facility] (Rec: 02/12/22 12:19 [facility] [id number]) Out-Patient Physical Therapy Visit Information Visit Information Visit Type Treatment Note Visit Note 07/19 Visit Start Time 09:04 Visit Stop Time 09:45 Total Visit Minutes 41 Visit Number 2 Number of MACHINE ADJUSTER LEADER Visits 0 PT-OP-B Current Condition Start: 02/04/22 08:35 Freq: Status: Active Protocol: Document 02/06/22 08:24 [facility] (Rec: 02/06/22 09:02 [facility] [id number]) Current Condition History of Current Condition Onset Date December worsening Current Complaints R hip History of Current Condition Pt has R hip pain and notes when she walks for longer distances. Pt reports in December she had a lot of company and was up/down staris a lot and was on feet a lot and after that she noticed it start to really bother her. She is hopign to put of a hip replacement. She had L ant MICHAEL in December of 2015 and was told by surgeon to avoid knee going all the way to the chest. She feels like seh cannot go for hikes or walks d/t pain. She likes to walk at a good pace and would walk a few miles 5 days a week with occ longer hikes. Prior to December, pt was able to do her consistant walks and only had the pain occ. Recently, she has only gone about 3-4x/week and walked about 1/2 of what she did before (so about 1 mile) and some of those walks, her pain would start to get pretty bad. Pt reports balacne problems. Last fall was before moving here about 2.5 years ago in the house when she was rushing around tripped over cord. Otherwsie a few other falls throughout the years, tripping over a curb and fell stepping over a branch in her driveway. She does do Silver Sneakers and has been missing that occ d/t pain. Prior Treatments and Tests Xray:IMPRESSION: Severe right hip joint osteoarthritis. No fracture or dislocation. No evidence of avascular necrosis . Seeing DO for treatment Treatment Goals Patient/Caregiver Goals avoid MICHAEL, be able to walk more PT-OP-C Subjective Start: 02/04/22 08:35 Freq: Status: Active Protocol: Document 02/12/22 09:04 [facility] (Rec: 02/12/22 12:19 [facility] [id number]) OP-PT Subjective Patient Comments Patient Comments Pt did do a 2 mile walk ( slower thn normal) and iced after and did ibuprofen before and after and the ice did help. PT-OP-D Balance Start: 02/04/22 08:35 Freq: Status: Active Protocol: Document 02/06/22 08:24 [facility] (Rec: 02/06/22 09:02 [facility] [id number]) Balance Tests Single Limb Standing Single Limb- Right 4 sec w/a lot f deviations Single Limb- Left 6 sec w/deviation PT-OP-G Mobility & Gait Start: 02/04/22 08:35 Freq: Status: Active Protocol: Document 02/06/22 08:24 [facility] (Rec: 02/06/22 09:02 [facility] [id number]) OP Gait Assessment Comments Gait Comments dec stance time on RLE and fwd flex on R side w/WB. dec push off PT-OP-K Range of Motion Start: 02/04/22 08:35 Freq: Status: Active Protocol: Document 02/06/22 08:24 [facility] (Rec: 02/06/22 09:02 [facility] [id number]) Hip Goniometric Range of Motion Hip Right Active Flexion w/Knee Flexed 91 Straight Leg Raise 48 Left Active Flexion w/Knee Flexed 100 Straight Leg Raise 47 PT-OP-L Special Tests Start: 02/04/22 08:35 Freq: Status: Active Protocol: Document 02/06/22 08:24 [facility] (Rec: 02/06/22 09:02 [facility] [id number]) Special Tests Hip Special Tests Astrid's Test Results positive R PT-OP-M Strength Start: 02/04/22 08:35 Freq: Status: Active Protocol: Document 02/06/22 08:24 [facility] (Rec: 02/06/22 09:02 [facility] [id number]) Hip Strength Hip Manual Muscle Testing Right Flexion (L2) 4- Good- Extension (S1) 3+ Fair+ Abduction 3+ Fair+ Adduction 4- Good- External Rotation 4- Good- Internal Rotation 3+ Fair+ Left Flexion (L2) 3+ Fair+ Extension (S1) 3+ Fair+ Abduction 4- Good- Adduction 4- Good- External Rotation 3+ Fair+ Internal Rotation 4 Good Knee Strength Knee Manual Muscle Testing Right Flexion (S2) 4- Good- Extension (L3) 4 Good Left Flexion (S2) 4- Good- Extension (L3) 4 Good Ankle/Foot Strength Ankle and Foot Manual Muscle Testing Right Dorsiflexion (L4) 5 Normal Plantarflexion (S1) 4 Good Left Dorsiflexion (L4) 5 Normal Plantarflexion (S1) 4 Good Comments PF tested seated PT-OP-Q Treatments Start: 02/04/22 08:35 Freq: Status: Active Protocol: Document 02/12/22 09:04 [facility] (Rec: 02/12/22 12:19 [facility] [id number]) Therapeutic Exercises Supine Exercises stretch Supine Exercise Name figure 4 Reps/Minutes 30 sec bridge Supine Exercise Name core engaged Side bilateral Equipment Used L2 around knees for ER Reps/Minutes 10 Standing Exercises stretch Standing Exercise Name hip flex or Side bilateral Reps/Minutes 30 sec mini squat Standing Exercise Name arms on counter SL Standing Exercise Name SL balance Side bilateral Reps/Minutes mult trials by counter Manual Therapy Treatment Soft Tissue Mobilization ITB Body Location L Mobilization Type Rolling,Strumming Intensity/Depth Moderate Body Position Supine hip flexor Body Location R iliacus & RF Mobilization Type Rolling,Strumming Intensity/Depth Moderate Body Position Supine Joint Mobilizations hip Joint R Direction inf FM PT-OP-T Assessment and Plan Start: 02/04/22 08:35 Freq: Status: Active Protocol: Document 02/12/22 09:04 [facility] (Rec: 02/12/22 12:19 [facility] [id number]) Physical Therapy Assessment Goals activity Bike Shop Manager Goal (LTG) Pt will be able to move hip as needed for donning/doffing clothes and other ADLs w/o inc pain LTG Duration 05/08 walking Short Term Goal (STG) Pt will be able to do her 1 mile walks w/o inc pain greater than 2/10 STG Duration 04/07 Bike Shop Manager Goal (LTG) Pt will be able return to walking 2 miles w/o inc pain greater than 2/10. LTG Duration 05/08 balance Fdc Goal (LTG) Pt will be able to do SLS for 10 sec w/o deviation to show improved ablance and stabiltiy LTG Duration 05/08 strength Short Term Goal (STG) Pt will be indep w/HEP STG Duration 03/28 Fdc Goal (LTG) Pt will score at least 4+/5 on MMT testing for BLEs to show imrpoved strength and stabiltiy to allow pt to be more active. LTG Duration 05/08 LEFS Impairment 42 Short Term Goal (STG) Pt will impove LEFS score to at least 50/80 toshow impoved functional ability. STG Duration 03/23/22 Bike Shop Manager Goal (LTG) Pt will impove LEFS score to at least 62/80 toshow impoved functional ability. LTG Duration 05/08 Assessment Summary Assessment Pt did well with exercises today w/o inc pain. She was cued for comfortable range during exercises. Physical Therapy Plan Next Visit Focus/Plan Next Note Type Treatment Note Next Visit Plan review exercises, STM to LE and hip joint mobs
--- NOTE | 2022-02-26 12:16 | PT.OTN ---
Current Diagnoses Pain in right hip (02/26/22) Segmental and somatic dysfunction of pelvic region (02/26/22) Difficulty in walking, not elsewhere classified (02/26/22) Abnormal posture (02/26/22) Weakness (02/26/22) Physical Therapy Treatment Note PT-OP-A Visit Information Start: 02/04/22 08:35 Freq: Status: Active Protocol: Document 02/26/22 11:18 AW (Rec: 02/26/22 12:16 AW [id number]) Out-Patient Physical Therapy Visit Information Visit Information Visit Type Treatment Note Visit Note 08/16 Visit Start Time 11:18 Visit Stop Time 12:00 Total Visit Minutes 42 Visit Number 3 Number of HISTORIC SITES REGISTRAR Visits 0 PT-OP-B Current Condition Start: 02/04/22 08:35 Freq: Status: Active Protocol: Document 02/06/22 08:24 [facility] (Rec: 02/06/22 09:02 [facility] [id number]) Current Condition History of Current Condition Onset Date December worsening Current Complaints R hip History of Current Condition Pt has R hip pain and notes when she walks for longer distances. Pt reports in December she had a lot of company and was up/down staris a lot and was on feet a lot and after that she noticed it start to really bother her. She is hopign to put of a hip replacement. She had L ant MICHAEL in December of 2015 and was told by surgeon to avoid knee going all the way to the chest. She feels like seh cannot go for hikes or walks d/t pain. She likes to walk at a good pace and would walk a few miles 5 days a week with occ longer hikes. Prior to December, pt was able to do her consistant walks and only had the pain occ. Recently, she has only gone about 3-4x/week and walked about 1/2 of what she did before (so about 1 mile) and some of those walks, her pain would start to get pretty bad. Pt reports balacne problems. Last fall was before moving here about 2.5 years ago in the house when she was rushing around tripped over cord. Otherwsie a few other falls throughout the years, tripping over a curb and fell stepping over a branch in her driveway. She does do Silver Sneakers and has been missing that occ d/t pain. Prior Treatments and Tests Xray:IMPRESSION: Severe right hip joint osteoarthritis. No fracture or dislocation. No evidence of avascular necrosis . Seeing DO for treatment Treatment Goals Patient/Caregiver Goals avoid MICHAEL, be able to walk more PT-OP-C Subjective Start: 02/04/22 08:35 Freq: Status: Active Protocol: Document 02/26/22 11:18 AW (Rec: 02/26/22 12:16 AW [id number]) OP-PT Subjective Patient Comments Patient Comments Has been very busy and feels her hip may be worse. 15-block walk yesterday ended with right hip achiness and soreness. PT-OP-D Balance Start: 02/04/22 08:35 Freq: Status: Active Protocol: Document 02/06/22 08:24 [facility] (Rec: 02/06/22 09:02 [facility] [id number]) Balance Tests Single Limb Standing Single Limb- Right 4 sec w/a lot f deviations Single Limb- Left 6 sec w/deviation PT-OP-G Mobility & Gait Start: 02/04/22 08:35 Freq: Status: Active Protocol: Document 02/06/22 08:24 [facility] (Rec: 02/06/22 09:02 [facility] [id number]) OP Gait Assessment Comments Gait Comments dec stance time on RLE and fwd flex on R side w/WB. dec push off PT-OP-K Range of Motion Start: 02/04/22 08:35 Freq: Status: Active Protocol: Document 02/06/22 08:24 [facility] (Rec: 02/06/22 09:02 [facility] [id number]) Hip Goniometric Range of Motion Hip Right Active Flexion w/Knee Flexed 91 Straight Leg Raise 48 Left Active Flexion w/Knee Flexed 100 Straight Leg Raise 47 PT-OP-L Special Tests Start: 02/04/22 08:35 Freq: Status: Active Protocol: Document 02/06/22 08:24 [facility] (Rec: 02/06/22 09:02 [facility] [id number]) Special Tests Hip Special Tests Astrid's Test Results positive R PT-OP-M Strength Start: 02/04/22 08:35 Freq: Status: Active Protocol: Document 02/06/22 08:24 [facility] (Rec: 02/06/22 09:02 [facility] [id number]) Hip Strength Hip Manual Muscle Testing Right Flexion (L2) 4- Good- Extension (S1) 3+ Fair+ Abduction 3+ Fair+ Adduction 4- Good- External Rotation 4- Good- Internal Rotation 3+ Fair+ Left Flexion (L2) 3+ Fair+ Extension (S1) 3+ Fair+ Abduction 4- Good- Adduction 4- Good- External Rotation 3+ Fair+ Internal Rotation 4 Good Knee Strength Knee Manual Muscle Testing Right Flexion (S2) 4- Good- Extension (L3) 4 Good Left Flexion (S2) 4- Good- Extension (L3) 4 Good Ankle/Foot Strength Ankle and Foot Manual Muscle Testing Right Dorsiflexion (L4) 5 Normal Plantarflexion (S1) 4 Good Left Dorsiflexion (L4) 5 Normal Plantarflexion (S1) 4 Good Comments PF tested seated PT-OP-Q Treatments Start: 02/04/22 08:35 Freq: Status: Active Protocol: Document 02/26/22 11:18 AW (Rec: 02/26/22 12:16 AW [id number]) Therapeutic Exercises Supine Exercises stretch Supine Exercise Name figure 4 Reps/Minutes 30 sec Comments irritating - dc'ed bridge Supine Exercise Name core engaged Side bilateral Equipment Used L2 around knees for ER Reps/Minutes 10 Comments HEP review Standing Exercises stretch Standing Exercise Name hip flexor Side bilateral Reps/Minutes 30 sec Comments max cues for set up; HEP review mini squat Standing Exercise Name no UE support Comments HEP review SL Standing Exercise Name SL balance - clinic only Side bilateral Reps/Minutes mult trials by // Comments removed from HEP for now Manual Therapy Treatment Soft Tissue Mobilization ITB Body Location L Mobilization Type Rolling,Strumming Intensity/Depth Moderate Body Position Supine hip flexor Body Location R iliacus & RF Mobilization Type Rolling,Strumming Intensity/Depth Moderate Body Position Supine Joint Mobilizations hip Joint R Direction inf FM Comments Pt very guarded; max cues and extra time to relax. PT-OP-T Assessment and Plan Start: 02/04/22 08:35 Freq: Status: Active Protocol: Document 02/26/22 11:18 AW (Rec: 02/26/22 12:16 AW [id number]) Physical Therapy Assessment Goals activity Shelter Goal (LTG) Pt will be able to move hip as needed for donning/doffing clothes and other ADLs w/o inc pain LTG Duration 05/08 walking Short Term Goal (STG) Pt will be able to do her 1 mile walks w/o inc pain greater than 2/10 STG Duration 04/07 High School Agriculture Teacher Goal (LTG) Pt will be able return to walking 2 miles w/o inc pain greater than 2/10. LTG Duration 05/08 balance Shelter Goal (LTG) Pt will be able to do SLS for 10 sec w/o deviation to show improved ablance and stabiltiy LTG Duration 05/08 strength Short Term Goal (STG) Pt will be indep w/HEP STG Duration 03/28 High School Agriculture Teacher Goal (LTG) Pt will score at least 4+/5 on MMT testing for BLEs to show imrpoved strength and stabiltiy to allow pt to be more active. LTG Duration 05/08 LEFS Impairment 42 Short Term Goal (STG) Pt will impove LEFS score to at least 50/80 toshow impoved functional ability. STG Duration 03/23/22 Shelter Goal (LTG) Pt will impove LEFS score to at least 62/80 toshow impoved functional ability. LTG Duration 05/08 Assessment Summary Assessment Pt arrived with significant limp today. Reviewed all exercises and continued with manual therapy to improve hip mobility. Pt left with improved gait post-treatment. Physical Therapy Plan Frequency and Duration Frequency of Treatment 2x/Week Duration of Treatment 3 months Plan of Care Start Date 02/06/22 Plan of Care End Date 05/08/22 Therapeutic Interventions Therapeutic Interventions Aquatic Therapy,Balance Training,Gait Training,Home Exercise Program,Joint Mobilizations,Manual Therapy, Neuromuscular Re-education, Patient/Caregiver Education, Self-Care/Home Management,Soft Tissue Mobilization,Taping, Therapeutic Activities, Therapeutic Exercises Modalities Cold Pack/Ice Massage,Electric Stimulation,Hot Packs, Infrared Therapy,Ultrasound Next Visit Focus/Plan Next Note Type Treatment Note Next Visit Plan review exercises, STM to LE and hip joint mobs
--- NOTE | 2022-03-05 12:22 | PT.OTN ---
Current Diagnoses Pain in right hip (03/05/22) Segmental and somatic dysfunction of pelvic region (03/05/22) Difficulty in walking, not elsewhere classified (03/05/22) Abnormal posture (03/05/22) Weakness (03/05/22) Physical Therapy Treatment Note PT-OP-A Visit Information Start: 02/04/22 08:35 Freq: Status: Active Protocol: Document 03/05/22 10:59 AW (Rec: 03/05/22 12:22 AW [id number]) Out-Patient Physical Therapy Visit Information Visit Information Visit Type Treatment Note Visit Note 09/16 Visit Start Time 11:16 Visit Stop Time 12:00 Total Visit Minutes 45 Visit Number 4 Number of LINE OUT WORKER Visits 0 Evaluation Information Evaluation Date 02/06/22 PT-OP-B Current Condition Start: 02/04/22 08:35 Freq: Status: Active Protocol: Document 02/06/22 08:24 [facility] (Rec: 02/06/22 09:02 [facility] [id number]) Current Condition History of Current Condition Onset Date December worsening Current Complaints R hip History of Current Condition Pt has R hip pain and notes when she walks for longer distances. Pt reports in December she had a lot of company and was up/down staris a lot and was on feet a lot and after that she noticed it start to really bother her. She is hopign to put of a hip replacement. She had L ant MICHAEL in December of 2015 and was told by surgeon to avoid knee going all the way to the chest. She feels like seh cannot go for hikes or walks d/t pain. She likes to walk at a good pace and would walk a few miles 5 days a week with occ longer hikes. Prior to December, pt was able to do her consistant walks and only had the pain occ. Recently, she has only gone about 3-4x/week and walked about 1/2 of what she did before (so about 1 mile) and some of those walks, her pain would start to get pretty bad. Pt reports balacne problems. Last fall was before moving here about 2.5 years ago in the house when she was rushing around tripped over cord. Otherwsie a few other falls throughout the years, tripping over a curb and fell stepping over a branch in her driveway. She does do Silver Sneakers and has been missing that occ d/t pain. Prior Treatments and Tests Xray:IMPRESSION: Severe right hip joint osteoarthritis. No fracture or dislocation. No evidence of avascular necrosis . Seeing DO for treatment Treatment Goals Patient/Caregiver Goals avoid MICHAEL, be able to walk more PT-OP-C Subjective Start: 02/04/22 08:35 Freq: Status: Active Protocol: Document 03/05/22 10:59 AW (Rec: 03/05/22 12:22 AW [id number]) OP-PT Subjective Patient Comments Patient Comments Pt arrives from [place] with [employer]. Much less irritability at the hip today. Patient Reported Progress Improving PT-OP-D Balance Start: 02/04/22 08:35 Freq: Status: Active Protocol: Document 02/06/22 08:24 [facility] (Rec: 02/06/22 09:02 [facility] [id number]) Balance Tests Single Limb Standing Single Limb- Right 4 sec w/a lot f deviations Single Limb- Left 6 sec w/deviation PT-OP-G Mobility & Gait Start: 02/04/22 08:35 Freq: Status: Active Protocol: Document 02/06/22 08:24 [facility] (Rec: 02/06/22 09:02 [facility] [id number]) OP Gait Assessment Comments Gait Comments dec stance time on RLE and fwd flex on R side w/WB. dec push off PT-OP-K Range of Motion Start: 02/04/22 08:35 Freq: Status: Active Protocol: Document 02/06/22 08:24 [facility] (Rec: 02/06/22 09:02 [facility] [id number]) Hip Goniometric Range of Motion Hip Right Active Flexion w/Knee Flexed 91 Straight Leg Raise 48 Left Active Flexion w/Knee Flexed 100 Straight Leg Raise 47 PT-OP-L Special Tests Start: 02/04/22 08:35 Freq: Status: Active Protocol: Document 02/06/22 08:24 [facility] (Rec: 02/06/22 09:02 [facility] [id number]) Special Tests Hip Special Tests Astrid's Test Results positive R PT-OP-M Strength Start: 02/04/22 08:35 Freq: Status: Active Protocol: Document 02/06/22 08:24 [facility] (Rec: 02/06/22 09:02 [facility] [id number]) Hip Strength Hip Manual Muscle Testing Right Flexion (L2) 4- Good- Extension (S1) 3+ Fair+ Abduction 3+ Fair+ Adduction 4- Good- External Rotation 4- Good- Internal Rotation 3+ Fair+ Left Flexion (L2) 3+ Fair+ Extension (S1) 3+ Fair+ Abduction 4- Good- Adduction 4- Good- External Rotation 3+ Fair+ Internal Rotation 4 Good Knee Strength Knee Manual Muscle Testing Right Flexion (S2) 4- Good- Extension (L3) 4 Good Left Flexion (S2) 4- Good- Extension (L3) 4 Good Ankle/Foot Strength Ankle and Foot Manual Muscle Testing Right Dorsiflexion (L4) 5 Normal Plantarflexion (S1) 4 Good Left Dorsiflexion (L4) 5 Normal Plantarflexion (S1) 4 Good Comments PF tested seated PT-OP-Q Treatments Start: 02/04/22 08:35 Freq: Status: Active Protocol: Document 03/05/22 10:59 AW (Rec: 03/05/22 12:22 AW [id number]) Therapeutic Exercises Supine Exercises supine clam Supine Exercise Name supine clam Side bilateral Resistance TB2 Reps/Minutes x10 with 5SH stretch Supine Exercise Name modified Zenon test position for hip flexor Comments combined with STM bridge Supine Exercise Name core engaged Side bilateral Equipment Used L2 around knees for ER Reps/Minutes 10 Comments HEP review Sidelying Exercises clamshell Sidelying Exercise Name clamshell Comments trialed but was irritating to R hip; dc'ed Standing Exercises stretch Standing Exercise Name hip flexor Side bilateral Reps/Minutes 30 sec Comments cued 'bend front knee, straighten back knee'; HEP review SL Standing Exercise Name SL balance - clinic only Side bilateral Reps/Minutes mult trials by // Comments clinic only Manual Therapy Treatment Soft Tissue Mobilization ITB Body Location L Mobilization Type Rolling,Strumming Intensity/Depth Moderate Body Position Supine Comments used rolling pin and instructed pt in home use hip flexor Body Location R iliacus & RF Mobilization Type Rolling,Strumming Intensity/Depth Moderate Body Position Supine Comments used rolling pin and instructed pt in home use Joint Mobilizations hip Joint R Direction inf; lateral Comments Pt slightly less guarded tdoay . Used strap for lateral mob PT-OP-T Assessment and Plan Start: 02/04/22 08:35 Freq: Status: Active Protocol: Document 03/05/22 10:59 AW (Rec: 03/05/22 12:22 AW [id number]) Physical Therapy Assessment Goals activity Security Operations Engineer Goal (LTG) Pt will be able to move hip as needed for donning/doffing clothes and other ADLs w/o inc pain LTG Duration 05/08 walking Short Term Goal (STG) Pt will be able to do her 1 mile walks w/o inc pain greater than 2/10 STG Duration 04/07 Long-Term Goal (LTG) Pt will be able return to walking 2 miles w/o inc pain greater than 2/10. LTG Duration 05/08 balance Long-Term Goal (LTG) Pt will be able to do SLS for 10 sec w/o deviation to show improved ablance and stabiltiy LTG Duration 05/08 strength Short Term Goal (STG) Pt will be indep w/HEP STG Duration 03/28 Security Operations Engineer Goal (LTG) Pt will score at least 4+/5 on MMT testing for BLEs to show imrpoved strength and stabiltiy to allow pt to be more active. LTG Duration 05/08 LEFS Impairment 42 Short Term Goal (STG) Pt will impove LEFS score to at least 50/80 toshow impoved functional ability. STG Duration 03/23/22 Long-Term Goal (LTG) Pt will impove LEFS score to at least 62/80 toshow impoved functional ability. LTG Duration 05/08 Assessment Summary Assessment Symptoms are less irritable today but pt still finds hip flexion from extended position provocative. Continued focus on manual therapy for right hip joint. Added supine clam for hip strength. Physical Therapy Plan Frequency and Duration Frequency of Treatment 2x/Week Plan of Care Start Date 02/06/22 Plan of Care End Date 05/08/22 Therapeutic Interventions Therapeutic Interventions Aquatic Therapy,Balance Training,Gait Training,Home Exercise Program,Joint Mobilizations,Manual Therapy, Neuromuscular Re-education, Patient/Caregiver Education, Self-Care/Home Management,Soft Tissue Mobilization,Taping, Therapeutic Activities, Therapeutic Exercises Modalities Cold Pack/Ice Massage,Electric Stimulation,Hot Packs, Infrared Therapy,Ultrasound
--- NOTE | 2022-03-07 16:56 | PT.OTN ---
Current Diagnoses Pain in right hip (03/07/22) Segmental and somatic dysfunction of pelvic region (03/07/22) Difficulty in walking, not elsewhere classified (03/07/22) Abnormal posture (03/07/22) Weakness (03/07/22) Physical Therapy Treatment Note PT-OP-A Visit Information Start: 02/04/22 08:35 Freq: Status: Active Protocol: Document 03/07/22 16:03 AW (Rec: 03/07/22 16:55 AW [id number]) Out-Patient Physical Therapy Visit Information Visit Information Visit Type Treatment Note Visit Note 10/16 Visit Start Time 16:04 Visit Stop Time 16:45 Total Visit Minutes 41 Visit Number 5 Number of CARE MANAGER CNA Visits 0 Evaluation Information Evaluation Date 02/06/22 PT-OP-B Current Condition Start: 02/04/22 08:35 Freq: Status: Active Protocol: Document 02/06/22 08:24 [facility] (Rec: 02/06/22 09:02 [facility] [id number]) Current Condition History of Current Condition Onset Date December worsening Current Complaints R hip History of Current Condition Pt has R hip pain and notes when she walks for longer distances. Pt reports in December she had a lot of company and was up/down staris a lot and was on feet a lot and after that she noticed it start to really bother her. She is hopign to put of a hip replacement. She had L ant MICHAEL in December of 2015 and was told by surgeon to avoid knee going all the way to the chest. She feels like seh cannot go for hikes or walks d/t pain. She likes to walk at a good pace and would walk a few miles 5 days a week with occ longer hikes. Prior to December, pt was able to do her consistant walks and only had the pain occ. Recently, she has only gone about 3-4x/week and walked about 1/2 of what she did before (so about 1 mile) and some of those walks, her pain would start to get pretty bad. Pt reports balacne problems. Last fall was before moving here about 2.5 years ago in the house when she was rushing around tripped over cord. Otherwsie a few other falls throughout the years, tripping over a curb and fell stepping over a branch in her driveway. She does do Silver Sneakers and has been missing that occ d/t pain. Prior Treatments and Tests Xray:IMPRESSION: Severe right hip joint osteoarthritis. No fracture or dislocation. No evidence of avascular necrosis . Seeing DO for treatment Treatment Goals Patient/Caregiver Goals avoid MICHAEL, be able to walk more PT-OP-C Subjective Start: 02/04/22 08:35 Freq: Status: Active Protocol: Document 03/07/22 16:03 AW (Rec: 03/07/22 16:55 AW [id number]) OP-PT Subjective Patient Comments Patient Comments Nan was a little extra sore yesterday. Thinks she overdid it with the hike and then PT but is feeling better today. PT-OP-D Balance Start: 02/04/22 08:35 Freq: Status: Active Protocol: Document 02/06/22 08:24 [facility] (Rec: 02/06/22 09:02 [facility] [id number]) Balance Tests Single Limb Standing Single Limb- Right 4 sec w/a lot f deviations Single Limb- Left 6 sec w/deviation PT-OP-G Mobility & Gait Start: 02/04/22 08:35 Freq: Status: Active Protocol: Document 02/06/22 08:24 [facility] (Rec: 02/06/22 09:02 [facility] [id number]) OP Gait Assessment Comments Gait Comments dec stance time on RLE and fwd flex on R side w/WB. dec push off PT-OP-K Range of Motion Start: 02/04/22 08:35 Freq: Status: Active Protocol: Document 02/06/22 08:24 [facility] (Rec: 02/06/22 09:02 [facility] [id number]) Hip Goniometric Range of Motion Hip Right Active Flexion w/Knee Flexed 91 Straight Leg Raise 48 Left Active Flexion w/Knee Flexed 100 Straight Leg Raise 47 PT-OP-L Special Tests Start: 02/04/22 08:35 Freq: Status: Active Protocol: Document 02/06/22 08:24 [facility] (Rec: 02/06/22 09:02 [facility] [id number]) Special Tests Hip Special Tests Astrid's Test Results positive R PT-OP-M Strength Start: 02/04/22 08:35 Freq: Status: Active Protocol: Document 02/06/22 08:24 [facility] (Rec: 02/06/22 09:02 [facility] [id number]) Hip Strength Hip Manual Muscle Testing Right Flexion (L2) 4- Good- Extension (S1) 3+ Fair+ Abduction 3+ Fair+ Adduction 4- Good- External Rotation 4- Good- Internal Rotation 3+ Fair+ Left Flexion (L2) 3+ Fair+ Extension (S1) 3+ Fair+ Abduction 4- Good- Adduction 4- Good- External Rotation 3+ Fair+ Internal Rotation 4 Good Knee Strength Knee Manual Muscle Testing Right Flexion (S2) 4- Good- Extension (L3) 4 Good Left Flexion (S2) 4- Good- Extension (L3) 4 Good Ankle/Foot Strength Ankle and Foot Manual Muscle Testing Right Dorsiflexion (L4) 5 Normal Plantarflexion (S1) 4 Good Left Dorsiflexion (L4) 5 Normal Plantarflexion (S1) 4 Good Comments PF tested seated PT-OP-Q Treatments Start: 02/04/22 08:35 Freq: Status: Active Protocol: Document 03/07/22 16:03 AW (Rec: 03/07/22 16:55 AW [id number]) Therapeutic Exercises Supine Exercises supine clam Supine Exercise Name supine clam Side bilateral Resistance TB2 Reps/Minutes x10 with 5SH stretch Supine Exercise Name modified Zenon test position for hip flexor Comments combined with STM bridge Supine Exercise Name core engaged Side bilateral Equipment Used L2 around knees for ER Reps/Minutes 10 Comments HEP review Standing Exercises stretch Standing Exercise Name hip flexor Side bilateral Reps/Minutes 30 sec Comments cued 'bend front knee, straighten back knee'; HEP review mini squat Standing Exercise Name squat tap Equipment Used mesh chair Comments added to HEP Manual Therapy Treatment Soft Tissue Mobilization adductors Body Location adductors Mobilization Type Rolling,Strumming Intensity/Depth Moderate Body Position Supine Comments pin and stretch ITB Body Location L Mobilization Type Rolling,Strumming Intensity/Depth Moderate Body Position Supine hip flexor Body Location R iliacus & RF Mobilization Type Rolling,Strumming Intensity/Depth Moderate Body Position Supine Comments MWM Joint Mobilizations hip Joint R Direction inf; lateral Comments Pt slightly less guarded tdoay . Used strap for lateral mob Manual Traction R hip Details R hip Comments long axis traction in neutral, IR, ER PT-OP-T Assessment and Plan Start: 02/04/22 08:35 Freq: Status: Active Protocol: Document 03/07/22 16:03 AW (Rec: 03/07/22 16:55 AW [id number]) Physical Therapy Assessment Goals activity Fare Collector Goal (LTG) Pt will be able to move hip as needed for donning/doffing clothes and other ADLs w/o inc pain LTG Duration 05/08 walking Short Term Goal (STG) Pt will be able to do her 1 mile walks w/o inc pain greater than 2/10 STG Duration 04/07 Fare Collector Goal (LTG) Pt will be able return to walking 2 miles w/o inc pain greater than 2/10. LTG Duration 05/08 balance Retirement Goal (LTG) Pt will be able to do SLS for 10 sec w/o deviation to show improved ablance and stabiltiy LTG Duration 05/08 strength Short Term Goal (STG) Pt will be indep w/HEP STG Duration 03/28 Retirement Goal (LTG) Pt will score at least 4+/5 on MMT testing for BLEs to show imrpoved strength and stabiltiy to allow pt to be more active. LTG Duration 05/08 LEFS Impairment 42 Short Term Goal (STG) Pt will impove LEFS score to at least 50/80 toshow impoved functional ability. STG Duration 03/23/22 Retirement Goal (LTG) Pt will impove LEFS score to at least 62/80 toshow impoved functional ability. LTG Duration 05/08 Assessment Summary Assessment Nan has continued irritability in right hip proximal hip flexors and adductors. She responds well to hip joint mobilization and STM. She was able to perform squat taps with standard height chair today. Will continue to progress hip strength while addressing signs of psoas tendinopathy. Physical Therapy Plan Frequency and Duration Frequency of Treatment 2x/Week Plan of Care Start Date 02/06/22 Plan of Care End Date 05/08/22 Therapeutic Interventions Therapeutic Interventions Aquatic Therapy,Balance Training,Gait Training,Home Exercise Program,Joint Mobilizations,Manual Therapy, Neuromuscular Re-education, Patient/Caregiver Education, Self-Care/Home Management,Soft Tissue Mobilization,Taping, Therapeutic Activities, Therapeutic Exercises Modalities Cold Pack/Ice Massage,Electric Stimulation,Hot Packs, Infrared Therapy,Ultrasound Next Visit Focus/Plan Next Note Type Treatment Note Next Visit Plan review exercises, STM to LE and hip joint mobs
--- NOTE | 2022-03-12 17:07 | PT.OTN ---
Current Diagnoses Pain in right hip (03/12/22) Segmental and somatic dysfunction of pelvic region (03/12/22) Difficulty in walking, not elsewhere classified (03/12/22) Abnormal posture (03/12/22) Weakness (03/12/22) Physical Therapy Treatment Note PT-OP-A Visit Information Start: 02/04/22 08:35 Freq: Status: Active Protocol: Document 03/12/22 15:22 AW (Rec: 03/12/22 17:07 AW [id number]) Out-Patient Physical Therapy Visit Information Visit Information Visit Type Treatment Note Visit Note 11/16 Visit Start Time 16:00 Visit Stop Time 16:45 Total Visit Minutes 45 Visit Number 6 Number of ABRASIVE MIXER HELPER Visits 0 Evaluation Information Evaluation Date 02/06/22 PT-OP-B Current Condition Start: 02/04/22 08:35 Freq: Status: Active Protocol: Document 02/06/22 08:24 [facility] (Rec: 02/06/22 09:02 [facility] [id number]) Current Condition History of Current Condition Onset Date December worsening Current Complaints R hip History of Current Condition Pt has R hip pain and notes when she walks for longer distances. Pt reports in December she had a lot of company and was up/down staris a lot and was on feet a lot and after that she noticed it start to really bother her. She is hopign to put of a hip replacement. She had L ant MICHAEL in December of 2015 and was told by surgeon to avoid knee going all the way to the chest. She feels like seh cannot go for hikes or walks d/t pain. She likes to walk at a good pace and would walk a few miles 5 days a week with occ longer hikes. Prior to December, pt was able to do her consistant walks and only had the pain occ. Recently, she has only gone about 3-4x/week and walked about 1/2 of what she did before (so about 1 mile) and some of those walks, her pain would start to get pretty bad. Pt reports balacne problems. Last fall was before moving here about 2.5 years ago in the house when she was rushing around tripped over cord. Otherwsie a few other falls throughout the years, tripping over a curb and fell stepping over a branch in her driveway. She does do Silver Sneakers and has been missing that occ d/t pain. Prior Treatments and Tests Xray:IMPRESSION: Severe right hip joint osteoarthritis. No fracture or dislocation. No evidence of avascular necrosis . Seeing DO for treatment Treatment Goals Patient/Caregiver Goals avoid MICHAEL, be able to walk more PT-OP-C Subjective Start: 02/04/22 08:35 Freq: Status: Active Protocol: Document 03/12/22 15:22 AW (Rec: 03/12/22 17:07 AW [id number]) OP-PT Subjective Patient Comments Patient Comments Today has been the worst day of pain so far, feels she is limping severely. Pt is considering an orthopedic consult. PT-OP-D Balance Start: 02/04/22 08:35 Freq: Status: Active Protocol: Document 02/06/22 08:24 [facility] (Rec: 02/06/22 09:02 [facility] [id number]) Balance Tests Single Limb Standing Single Limb- Right 4 sec w/a lot f deviations Single Limb- Left 6 sec w/deviation PT-OP-G Mobility & Gait Start: 02/04/22 08:35 Freq: Status: Active Protocol: Document 02/06/22 08:24 [facility] (Rec: 02/06/22 09:02 [facility] [id number]) OP Gait Assessment Comments Gait Comments dec stance time on RLE and fwd flex on R side w/WB. dec push off PT-OP-K Range of Motion Start: 02/04/22 08:35 Freq: Status: Active Protocol: Document 02/06/22 08:24 [facility] (Rec: 02/06/22 09:02 [facility] [id number]) Hip Goniometric Range of Motion Hip Right Active Flexion w/Knee Flexed 91 Straight Leg Raise 48 Left Active Flexion w/Knee Flexed 100 Straight Leg Raise 47 PT-OP-L Special Tests Start: 02/04/22 08:35 Freq: Status: Active Protocol: Document 02/06/22 08:24 [facility] (Rec: 02/06/22 09:02 [facility] [id number]) Special Tests Hip Special Tests Astrid's Test Results positive R PT-OP-M Strength Start: 02/04/22 08:35 Freq: Status: Active Protocol: Document 02/06/22 08:24 [facility] (Rec: 02/06/22 09:02 [facility] [id number]) Hip Strength Hip Manual Muscle Testing Right Flexion (L2) 4- Good- Extension (S1) 3+ Fair+ Abduction 3+ Fair+ Adduction 4- Good- External Rotation 4- Good- Internal Rotation 3+ Fair+ Left Flexion (L2) 3+ Fair+ Extension (S1) 3+ Fair+ Abduction 4- Good- Adduction 4- Good- External Rotation 3+ Fair+ Internal Rotation 4 Good Knee Strength Knee Manual Muscle Testing Right Flexion (S2) 4- Good- Extension (L3) 4 Good Left Flexion (S2) 4- Good- Extension (L3) 4 Good Ankle/Foot Strength Ankle and Foot Manual Muscle Testing Right Dorsiflexion (L4) 5 Normal Plantarflexion (S1) 4 Good Left Dorsiflexion (L4) 5 Normal Plantarflexion (S1) 4 Good Comments PF tested seated PT-OP-Q Treatments Start: 02/04/22 08:35 Freq: Status: Active Protocol: Document 03/12/22 15:22 AW (Rec: 03/12/22 17:07 AW [id number]) Cardio Equipment Recumbent Bicycle Duration (Minutes) 5 Resistance 5 Seat Position 2 Therapeutic Exercises Supine Exercises heelslide Supine Exercise Name heelslide Side right Resistance AROM Comments HEP bridge Supine Exercise Name core engaged Side bilateral Equipment Used L2 around knees for ER Reps/Minutes 10 Comments HEP review Sitting Exercises HS curl Sitting Exercise Name HS curl Resistance TB2 looped Comments HEP Standing Exercises stretch Standing Exercise Name hip flexor Side bilateral Reps/Minutes 30 sec Comments cued 'bend front knee, straighten back knee'; HEP review mini squat Standing Exercise Name squat tap Equipment Used mesh chair Comments added to HEP Gait Training Gait Activity SPC Description SPC Surface tile Treatment Focus patterning Comments Instructed pt in use of SPC to offload R hip during periods when symptoms are highly irritable. Pt able to sequence independently but needs cues for fluid movement. Manual Therapy Treatment Soft Tissue Mobilization ITB Body Location L Mobilization Type Rolling,Strumming Intensity/Depth Moderate Body Position Supine hip flexor Body Location R iliacus & RF Mobilization Type Rolling,Strumming Intensity/Depth Moderate Body Position Supine Comments MWM Joint Mobilizations hip Joint R Direction inf; lateral Grade II Comments Pt more relaxed today in spite of pain. Used strap for lateral mob. Manual Traction R hip Details R hip Comments long axis traction in neutral, IR, ER PT-OP-T Assessment and Plan Start: 02/04/22 08:35 Freq: Status: Active Protocol: Document 03/12/22 15:22 AW (Rec: 03/12/22 17:07 AW [id number]) Physical Therapy Assessment Goals activity Halfway Goal (LTG) Pt will be able to move hip as needed for donning/doffing clothes and other ADLs w/o inc pain LTG Duration 05/08 walking Short Term Goal (STG) Pt will be able to do her 1 mile walks w/o inc pain greater than 2/10 STG Duration 04/07 Cardiology Rn Goal (LTG) Pt will be able return to walking 2 miles w/o inc pain greater than 2/10. LTG Duration 05/08 balance Halfway Goal (LTG) Pt will be able to do SLS for 10 sec w/o deviation to show improved ablance and stabiltiy LTG Duration 05/08 strength Short Term Goal (STG) Pt will be indep w/HEP STG Duration 03/28 Cardiology Rn Goal (LTG) Pt will score at least 4+/5 on MMT testing for BLEs to show imrpoved strength and stabiltiy to allow pt to be more active. LTG Duration 05/08 LEFS Impairment 42 Short Term Goal (STG) Pt will impove LEFS score to at least 50/80 toshow impoved functional ability. STG Duration 03/23/22 Halfway Goal (LTG) Pt will impove LEFS score to at least 62/80 toshow impoved functional ability. LTG Duration 05/08 Assessment Summary Assessment Nan is having a lot of pain today and arrives with significant limp. Educated pt on use of SPC during periods of high irritability or to improve endurance on longer walks. Pt is considering an orthopedic consult as she is beginning to fear putting off action on potential surgery for too long and becoming incapacitated. Physical Therapy Plan Frequency and Duration Frequency of Treatment 2x/Week Plan of Care Start Date 02/06/22 Plan of Care End Date 05/08/22 Therapeutic Interventions Therapeutic Interventions Aquatic Therapy,Balance Training,Gait Training,Home Exercise Program,Joint Mobilizations,Manual Therapy, Neuromuscular Re-education, Patient/Caregiver Education, Self-Care/Home Management,Soft Tissue Mobilization,Taping, Therapeutic Activities, Therapeutic Exercises Modalities Cold Pack/Ice Massage,Electric Stimulation,Hot Packs, Infrared Therapy,Ultrasound Next Visit Focus/Plan Next Note Type Treatment Note Next Visit Plan Revisit ortho consult conversation. Re-assess gait with SPC. Gait training to improve push off and hip extension/propulsion.
--- NOTE | 2022-03-19 17:11 | PT.OTN ---
Current Diagnoses Pain in right hip (03/19/22) Segmental and somatic dysfunction of pelvic region (03/19/22) Difficulty in walking, not elsewhere classified (03/19/22) Abnormal posture (03/19/22) Weakness (03/19/22) Physical Therapy Treatment Note PT-OP-A Visit Information Start: 02/04/22 08:35 Freq: Status: Active Protocol: Document 03/19/22 14:16 AW (Rec: 03/19/22 17:10 AW [id number]) Out-Patient Physical Therapy Visit Information Visit Information Visit Type Treatment Note Visit Start Time 15:15 Visit Stop Time 16:10 Total Visit Minutes 55 Visit Number 7 Number of MACHINE DESIGN TEACHER Visits 0 Evaluation Information Evaluation Date 02/06/22 PT-OP-B Current Condition Start: 02/04/22 08:35 Freq: Status: Active Protocol: Document 02/06/22 08:24 [facility] (Rec: 02/06/22 09:02 [facility] [id number]) Current Condition History of Current Condition Onset Date December worsening Current Complaints R hip History of Current Condition Pt has R hip pain and notes when she walks for longer distances. Pt reports in December she had a lot of company and was up/down staris a lot and was on feet a lot and after that she noticed it start to really bother her. She is hopign to put of a hip replacement. She had L ant MICHAEL in December of 2015 and was told by surgeon to avoid knee going all the way to the chest. She feels like seh cannot go for hikes or walks d/t pain. She likes to walk at a good pace and would walk a few miles 5 days a week with occ longer hikes. Prior to December, pt was able to do her consistant walks and only had the pain occ. Recently, she has only gone about 3-4x/week and walked about 1/2 of what she did before (so about 1 mile) and some of those walks, her pain would start to get pretty bad. Pt reports balacne problems. Last fall was before moving here about 2.5 years ago in the house when she was rushing around tripped over cord. Otherwsie a few other falls throughout the years, tripping over a curb and fell stepping over a branch in her driveway. She does do Silver Sneakers and has been missing that occ d/t pain. Prior Treatments and Tests Xray:IMPRESSION: Severe right hip joint osteoarthritis. No fracture or dislocation. No evidence of avascular necrosis . Seeing DO for treatment Treatment Goals Patient/Caregiver Goals avoid MICHAEL, be able to walk more PT-OP-C Subjective Start: 02/04/22 08:35 Freq: Status: Active Protocol: Document 03/19/22 14:16 AW (Rec: 03/19/22 17:10 AW [id number]) OP-PT Subjective Patient Comments Patient Comments Right hip pain seems to be getting more constant and more intense. Longer walks seem to be more provocative in terms of delayed onset pain. Pt [facility] get a cane [facility] and used it yesterday for a walk. Notices she feels more secure with the cane. She has initiated ortho consult and is hoping to get two opinions. Patient Reported Progress Worse PT-OP-D Balance Start: 02/04/22 08:35 Freq: Status: Active Protocol: Document 02/06/22 08:24 [facility] (Rec: 02/06/22 09:02 [facility] [id number]) Balance Tests Single Limb Standing Single Limb- Right 4 sec w/a lot f deviations Single Limb- Left 6 sec w/deviation PT-OP-G Mobility & Gait Start: 02/04/22 08:35 Freq: Status: Active Protocol: Document 02/06/22 08:24 [facility] (Rec: 02/06/22 09:02 [facility] [id number]) OP Gait Assessment Comments Gait Comments dec stance time on RLE and fwd flex on R side w/WB. dec push off PT-OP-K Range of Motion Start: 02/04/22 08:35 Freq: Status: Active Protocol: Document 02/06/22 08:24 [facility] (Rec: 02/06/22 09:02 [facility] [id number]) Hip Goniometric Range of Motion Hip Right Active Flexion w/Knee Flexed 91 Straight Leg Raise 48 Left Active Flexion w/Knee Flexed 100 Straight Leg Raise 47 PT-OP-L Special Tests Start: 02/04/22 08:35 Freq: Status: Active Protocol: Document 02/06/22 08:24 [facility] (Rec: 02/06/22 09:02 [facility] [id number]) Special Tests Hip Special Tests Astrid's Test Results positive R PT-OP-M Strength Start: 02/04/22 08:35 Freq: Status: Active Protocol: Document 02/06/22 08:24 [facility] (Rec: 02/06/22 09:02 [facility] [id number]) Hip Strength Hip Manual Muscle Testing Right Flexion (L2) 4- Good- Extension (S1) 3+ Fair+ Abduction 3+ Fair+ Adduction 4- Good- External Rotation 4- Good- Internal Rotation 3+ Fair+ Left Flexion (L2) 3+ Fair+ Extension (S1) 3+ Fair+ Abduction 4- Good- Adduction 4- Good- External Rotation 3+ Fair+ Internal Rotation 4 Good Knee Strength Knee Manual Muscle Testing Right Flexion (S2) 4- Good- Extension (L3) 4 Good Left Flexion (S2) 4- Good- Extension (L3) 4 Good Ankle/Foot Strength Ankle and Foot Manual Muscle Testing Right Dorsiflexion (L4) 5 Normal Plantarflexion (S1) 4 Good Left Dorsiflexion (L4) 5 Normal Plantarflexion (S1) 4 Good Comments PF tested seated PT-OP-Q Treatments Start: 02/04/22 08:35 Freq: Status: Active Protocol: Document 03/19/22 14:16 AW (Rec: 03/19/22 17:10 AW [id number]) Cardio Equipment Recumbent Bicycle Duration (Minutes) 5 Resistance 5 Seat Position 2 Therapeutic Exercises Supine Exercises heelslide Supine Exercise Name heelslide Side right Resistance AROM Comments HEP supine clam Supine Exercise Name supine clam Side bilateral Resistance TB3 Reps/Minutes x10 with 5SH Comments poor eccentric control RLE stretch Supine Exercise Name modified Zenon test position for hip flexor Comments combined with STM Gait Training Gait Activity no AD Device Used none Treatment Focus pushoff, glute engagement Comments Began with weight shifting A/P to encourage push off from trailing foot. Transitioned into gait with awareness of glute facilitation Manual Therapy Treatment Soft Tissue Mobilization adductors Body Location adductors Mobilization Type Rolling,Strumming Intensity/Depth Moderate Body Position Supine Comments pin and stretch hip flexor Body Location R iliacus & RF Mobilization Type Rolling,Strumming Intensity/Depth Moderate Body Position Supine Comments MWM Joint Mobilizations hip Joint R Direction inf; lateral Grade II Comments Pt more guarded today, has difficulty relaxing. Manual Traction R hip Details R hip Comments long axis traction in neutral, IR, ER Self-Care/Home Management Treatment Education Patient Education Fall Risk,Pain Management Other Education Encouraged use of cane at night for trips to the bathroom. Educated pt to ice regularly up to 20 minutes at a time. Suggested breaking walking up into shorter bouts - possibly 15 minutes at a time. PT-OP-R Modalities Start: 02/04/22 08:35 Freq: Status: Active Protocol: Document 03/19/22 14:16 AW (Rec: 03/19/22 17:11 AW [id number]) Hot Pack/Cold Pack Treatment Cold Pack Location right anterior hip Patient Position Hooklying Treatment Duration (minutes) 10 Patient Tolerance Good PT-OP-T Assessment and Plan Start: 02/04/22 08:35 Freq: Status: Active Protocol: Document 03/19/22 14:16 AW (Rec: 03/19/22 17:10 AW [id number]) Physical Therapy Assessment Goals activity Mcc Goal (LTG) Pt will be able to move hip as needed for donning/doffing clothes and other ADLs w/o inc pain LTG Duration 05/08 walking Short Term Goal (STG) Pt will be able to do her 1 mile walks w/o inc pain greater than 2/10 STG Duration 04/07 Mcc Goal (LTG) Pt will be able return to walking 2 miles w/o inc pain greater than 2/10. LTG Duration 05/08 balance Mcc Goal (LTG) Pt will be able to do SLS for 10 sec w/o deviation to show improved ablance and stabiltiy LTG Duration 05/08 strength Short Term Goal (STG) Pt will be indep w/HEP STG Duration 03/28 Mcc Goal (LTG) Pt will score at least 4+/5 on MMT testing for BLEs to show imrpoved strength and stabiltiy to allow pt to be more active. LTG Duration 05/08 LEFS Impairment 42 Short Term Goal (STG) Pt will impove LEFS score to at least 50/80 toshow impoved functional ability. STG Duration 03/23/22 Real Estate Services Administrator Goal (LTG) Pt will impove LEFS score to at least 62/80 toshow impoved functional ability. LTG Duration 05/08 Assessment Summary Assessment Pt continues to exhibit signs of psoas tendinopathy as well as likely progressing OA. She is tolerating PT but not making much progress. In fact, she feels worse over the past two weeks. She is working on referrals to ortho and hopes to get two opinions. Dropping appointments to once weekly. PT encouraged pt to manage pain with ice and to use a cane for night time bathroom trips to reduce her falls risk . Physical Therapy Plan Frequency and Duration Frequency of Treatment 2x/Week Plan of Care Start Date 02/06/22 Plan of Care End Date 05/08/22 Therapeutic Interventions Therapeutic Interventions Aquatic Therapy,Balance Training,Gait Training,Home Exercise Program,Joint Mobilizations,Manual Therapy, Neuromuscular Re-education, Patient/Caregiver Education, Self-Care/Home Management,Soft Tissue Mobilization,Taping, Therapeutic Activities, Therapeutic Exercises Modalities Cold Pack/Ice Massage,Electric Stimulation,Hot Packs, Infrared Therapy,Ultrasound Next Visit Focus/Plan Next Note Type Treatment Note Next Visit Plan STM RLE, hip joint mobs, review HEP, gait training with SPC
--- NOTE | 2022-03-26 16:04 | PT.OTN ---
Current Diagnoses Pain in right hip (03/26/22) Segmental and somatic dysfunction of pelvic region (03/26/22) Difficulty in walking, not elsewhere classified (03/26/22) Abnormal posture (03/26/22) Weakness (03/26/22) Physical Therapy Treatment Note PT-OP-A Visit Information Start: 02/04/22 08:35 Freq: Status: Active Protocol: Document 03/26/22 14:04 AW (Rec: 03/26/22 16:04 AW [id number]) Out-Patient Physical Therapy Visit Information Visit Information Visit Type Treatment Note Visit Start Time 15:15 Visit Stop Time 16:00 Total Visit Minutes 45 Visit Number 8 Number of LINE CONSTRUCTION SUPERINTENDENT Visits 0 Evaluation Information Evaluation Date 02/06/22 PT-OP-B Current Condition Start: 02/04/22 08:35 Freq: Status: Active Protocol: Document 02/06/22 08:24 [facility] (Rec: 02/06/22 09:02 [facility] [id number]) Current Condition History of Current Condition Onset Date December worsening Current Complaints R hip History of Current Condition Pt has R hip pain and notes when she walks for longer distances. Pt reports in December she had a lot of company and was up/down staris a lot and was on feet a lot and after that she noticed it start to really bother her. She is hopign to put of a hip replacement. She had L ant MICHAEL in December of 2015 and was told by surgeon to avoid knee going all the way to the chest. She feels like seh cannot go for hikes or walks d/t pain. She likes to walk at a good pace and would walk a few miles 5 days a week with occ longer hikes. Prior to December, pt was able to do her consistant walks and only had the pain occ. Recently, she has only gone about 3-4x/week and walked about 1/2 of what she did before (so about 1 mile) and some of those walks, her pain would start to get pretty bad. Pt reports balacne problems. Last fall was before moving here about 2.5 years ago in the house when she was rushing around tripped over cord. Otherwsie a few other falls throughout the years, tripping over a curb and fell stepping over a branch in her driveway. She does do Silver Sneakers and has been missing that occ d/t pain. Prior Treatments and Tests Xray:IMPRESSION: Severe right hip joint osteoarthritis. No fracture or dislocation. No evidence of avascular necrosis . Seeing DO for treatment Treatment Goals Patient/Caregiver Goals avoid MICHAEL, be able to walk more PT-OP-C Subjective Start: 02/04/22 08:35 Freq: Status: Active Protocol: Document 03/26/22 14:04 AW (Rec: 03/26/22 16:04 AW [id number]) OP-PT Subjective Patient Comments Patient Comments Nan has been able to shorten her walks every now and then. She arrives using the cane today and is not limping significantly. She states her pain has been better for a few days. PT-OP-D Balance Start: 02/04/22 08:35 Freq: Status: Active Protocol: Document 02/06/22 08:24 [facility] (Rec: 02/06/22 09:02 [facility] [id number]) Balance Tests Single Limb Standing Single Limb- Right 4 sec w/a lot f deviations Single Limb- Left 6 sec w/deviation PT-OP-G Mobility & Gait Start: 02/04/22 08:35 Freq: Status: Active Protocol: Document 02/06/22 08:24 [facility] (Rec: 02/06/22 09:02 [facility] [id number]) OP Gait Assessment Comments Gait Comments dec stance time on RLE and fwd flex on R side w/WB. dec push off PT-OP-K Range of Motion Start: 02/04/22 08:35 Freq: Status: Active Protocol: Document 02/06/22 08:24 [facility] (Rec: 02/06/22 09:02 [facility] [id number]) Hip Goniometric Range of Motion Hip Right Active Flexion w/Knee Flexed 91 Straight Leg Raise 48 Left Active Flexion w/Knee Flexed 100 Straight Leg Raise 47 PT-OP-L Special Tests Start: 02/04/22 08:35 Freq: Status: Active Protocol: Document 02/06/22 08:24 [facility] (Rec: 02/06/22 09:02 [facility] [id number]) Special Tests Hip Special Tests Astrid's Test Results positive R PT-OP-M Strength Start: 02/04/22 08:35 Freq: Status: Active Protocol: Document 02/06/22 08:24 [facility] (Rec: 02/06/22 09:02 [facility] [id number]) Hip Strength Hip Manual Muscle Testing Right Flexion (L2) 4- Good- Extension (S1) 3+ Fair+ Abduction 3+ Fair+ Adduction 4- Good- External Rotation 4- Good- Internal Rotation 3+ Fair+ Left Flexion (L2) 3+ Fair+ Extension (S1) 3+ Fair+ Abduction 4- Good- Adduction 4- Good- External Rotation 3+ Fair+ Internal Rotation 4 Good Knee Strength Knee Manual Muscle Testing Right Flexion (S2) 4- Good- Extension (L3) 4 Good Left Flexion (S2) 4- Good- Extension (L3) 4 Good Ankle/Foot Strength Ankle and Foot Manual Muscle Testing Right Dorsiflexion (L4) 5 Normal Plantarflexion (S1) 4 Good Left Dorsiflexion (L4) 5 Normal Plantarflexion (S1) 4 Good Comments PF tested seated PT-OP-Q Treatments Start: 02/04/22 08:35 Freq: Status: Active Protocol: Document 03/26/22 14:04 AW (Rec: 03/26/22 16:04 [id number]) Cardio Equipment Recumbent Bicycle Duration (Minutes) 5 Resistance 5 Seat Position 2 Gym Equipment Shuttle Recovery Bilateral Squats Resistance 62 Reps/Time 2x12 Therapeutic Exercises Supine Exercises supine clam Supine Exercise Name supine clam Side bilateral Resistance TB3 Reps/Minutes x10 with 5SH Comments poor eccentric control RLE bridge Supine Exercise Name core engaged Side bilateral Equipment Used L2 around knees for ER Reps/Minutes 10 Comments improved ROM w/ no anterior pinch Standing Exercises stretch Standing Exercise Name hip flexor Side bilateral Reps/Minutes 30 sec Comments cued 'bend front knee, straighten back knee'; HEP review mini squat Standing Exercise Name squat tap Equipment Used mesh chair Comments added to HEP Gait Training Gait Activity no AD Device Used none Treatment Focus pushoff, glute engagement Comments Practiced AP weight shifting with glute engagement for carryover to gait. Manual Therapy Treatment Soft Tissue Mobilization hip flexor Body Location R iliacus & RF Mobilization Type Rolling,Strumming Intensity/Depth Moderate Body Position Supine Comments MWM Joint Mobilizations hip Joint R Direction inf Grade II Comments Much less guarded today but still tolerating no more than grade II PT-OP-R Modalities Start: 02/04/22 08:35 Freq: Status: Active Protocol: Document 03/19/22 14:16 AW (Rec: 03/19/22 17:11 AW [id number]) Hot Pack/Cold Pack Treatment Cold Pack Location right anterior hip Patient Position Hooklying Treatment Duration (minutes) 10 Patient Tolerance Good PT-OP-T Assessment and Plan Start: 02/04/22 08:35 Freq: Status: Active Protocol: Document 03/26/22 14:04 AW (Rec: 03/26/22 16:04 AW [id number]) Physical Therapy Assessment Goals activity Snf Goal (LTG) Pt will be able to move hip as needed for donning/doffing clothes and other ADLs w/o inc pain LTG Duration 05/08 walking Short Term Goal (STG) Pt will be able to do her 1 mile walks w/o inc pain greater than 2/10 STG Duration 04/07 Snf Goal (LTG) Pt will be able return to walking 2 miles w/o inc pain greater than 2/10. LTG Duration 05/08 balance Snf Goal (LTG) Pt will be able to do SLS for 10 sec w/o deviation to show improved ablance and stabiltiy LTG Duration 05/08 strength Short Term Goal (STG) Pt will be indep w/HEP STG Duration 03/28 Snf Goal (LTG) Pt will score at least 4+/5 on MMT testing for BLEs to show imrpoved strength and stabiltiy to allow pt to be more active. LTG Duration 05/08 LEFS Impairment 42 Short Term Goal (STG) Pt will impove LEFS score to at least 50/80 toshow impoved functional ability. STG Duration 03/23/22 Laborer General Goal (LTG) Pt will impove LEFS score to at least 62/80 toshow impoved functional ability. LTG Duration 05/08 Assessment Summary Assessment Pt feeling better today, arrives with less of a limp while using SPC. She tolerates all hip strengthening well but has some irritation while hip flexors are lengthening under tension. Physical Therapy Plan Frequency and Duration Frequency of Treatment 2x/Week Plan of Care Start Date 02/06/22 Plan of Care End Date 05/08/22 Therapeutic Interventions Therapeutic Interventions Aquatic Therapy,Balance Training,Gait Training,Home Exercise Program,Joint Mobilizations,Manual Therapy, Neuromuscular Re-education, Patient/Caregiver Education, Self-Care/Home Management,Soft Tissue Mobilization,Taping, Therapeutic Activities, Therapeutic Exercises Modalities Cold Pack/Ice Massage,Electric Stimulation,Hot Packs, Infrared Therapy,Ultrasound Next Visit Focus/Plan Next Note Type Treatment Note Next Visit Plan STM RLE, hip joint mobs, review HEP, gait training for glute drive. Follow up on plans for ortho consult
--- NOTE | 2022-04-03 10:37 | PT.OTN ---
Current Diagnoses Pain in right hip (04/03/22) Segmental and somatic dysfunction of pelvic region (04/03/22) Difficulty in walking, not elsewhere classified (04/03/22) Abnormal posture (04/03/22) Weakness (04/03/22) Physical Therapy Treatment Note PT-OP-A Visit Information Start: 02/04/22 08:35 Freq: Status: Active Protocol: Document 04/03/22 08:51 AW (Rec: 04/03/22 10:37 AW [id number]) Out-Patient Physical Therapy Visit Information Visit Information Visit Type Treatment Note Visit Start Time 09:45 Visit Stop Time 10:30 Total Visit Minutes 45 Visit Number 9 Number of CORK CUTTER Visits 0 Evaluation Information Evaluation Date 02/06/22 PT-OP-B Current Condition Start: 02/04/22 08:35 Freq: Status: Active Protocol: Document 02/06/22 08:24 [facility] (Rec: 02/06/22 09:02 [facility] [id number]) Current Condition History of Current Condition Onset Date December worsening Current Complaints R hip History of Current Condition Pt has R hip pain and notes when she walks for longer distances. Pt reports in December she had a lot of company and was up/down staris a lot and was on feet a lot and after that she noticed it start to really bother her. She is hopign to put of a hip replacement. She had L ant MICHAEL in December of 2015 and was told by surgeon to avoid knee going all the way to the chest. She feels like seh cannot go for hikes or walks d/t pain. She likes to walk at a good pace and would walk a few miles 5 days a week with occ longer hikes. Prior to December, pt was able to do her consistant walks and only had the pain occ. Recently, she has only gone about 3-4x/week and walked about 1/2 of what she did before (so about 1 mile) and some of those walks, her pain would start to get pretty bad. Pt reports balacne problems. Last fall was before moving here about 2.5 years ago in the house when she was rushing around tripped over cord. Otherwsie a few other falls throughout the years, tripping over a curb and fell stepping over a branch in her driveway. She does do Silver Sneakers and has been missing that occ d/t pain. Prior Treatments and Tests Xray:IMPRESSION: Severe right hip joint osteoarthritis. No fracture or dislocation. No evidence of avascular necrosis . Seeing DO for treatment Treatment Goals Patient/Caregiver Goals avoid MICHAEL, be able to walk more PT-OP-C Subjective Start: 02/04/22 08:35 Freq: Status: Active Protocol: Document 04/03/22 08:51 AW (Rec: 04/03/22 10:37 AW [id number]) OP-PT Subjective Patient Comments Patient Comments Accidentally went for a longer than usual walk on Friday. Had to take ibuprofen, Tylenol, and ice. Things are just now calming down. Is worried about flying to [place] later this week. Does now have two ortho appointments set up - one [facility] and one in [place]. PT-OP-D Balance Start: 02/04/22 08:35 Freq: Status: Active Protocol: Document 02/06/22 08:24 [facility] (Rec: 02/06/22 09:02 [facility] [id number]) Balance Tests Single Limb Standing Single Limb- Right 4 sec w/a lot f deviations Single Limb- Left 6 sec w/deviation PT-OP-G Mobility & Gait Start: 02/04/22 08:35 Freq: Status: Active Protocol: Document 02/06/22 08:24 [facility] (Rec: 02/06/22 09:02 [facility] [id number]) OP Gait Assessment Comments Gait Comments dec stance time on RLE and fwd flex on R side w/WB. dec push off PT-OP-K Range of Motion Start: 02/04/22 08:35 Freq: Status: Active Protocol: Document 02/06/22 08:24 [facility] (Rec: 02/06/22 09:02 [facility] [id number]) Hip Goniometric Range of Motion Hip Right Active Flexion w/Knee Flexed 91 Straight Leg Raise 48 Left Active Flexion w/Knee Flexed 100 Straight Leg Raise 47 PT-OP-L Special Tests Start: 02/04/22 08:35 Freq: Status: Active Protocol: Document 02/06/22 08:24 [facility] (Rec: 02/06/22 09:02 [facility] [id number]) Special Tests Hip Special Tests Astrid's Test Results positive R PT-OP-M Strength Start: 02/04/22 08:35 Freq: Status: Active Protocol: Document 02/06/22 08:24 [facility] (Rec: 02/06/22 09:02 [facility] [id number]) Hip Strength Hip Manual Muscle Testing Right Flexion (L2) 4- Good- Extension (S1) 3+ Fair+ Abduction 3+ Fair+ Adduction 4- Good- External Rotation 4- Good- Internal Rotation 3+ Fair+ Left Flexion (L2) 3+ Fair+ Extension (S1) 3+ Fair+ Abduction 4- Good- Adduction 4- Good- External Rotation 3+ Fair+ Internal Rotation 4 Good Knee Strength Knee Manual Muscle Testing Right Flexion (S2) 4- Good- Extension (L3) 4 Good Left Flexion (S2) 4- Good- Extension (L3) 4 Good Ankle/Foot Strength Ankle and Foot Manual Muscle Testing Right Dorsiflexion (L4) 5 Normal Plantarflexion (S1) 4 Good Left Dorsiflexion (L4) 5 Normal Plantarflexion (S1) 4 Good Comments PF tested seated PT-OP-Q Treatments Start: 02/04/22 08:35 Freq: Status: Active Protocol: Document 04/03/22 08:51 AW (Rec: 04/03/22 10:37 AW [id number]) Cardio Equipment Recumbent Elliptical (Biodex) Duration (Minutes) 5 Resistance 3 Seat Position 5 seen Other less irritating than recumb bike Gym Equipment Shuttle Recovery Bilateral Squats Resistance 62 Reps/Time 2x12 Therapeutic Exercises Standing Exercises mini squat Standing Exercise Name squat tap Equipment Used mesh chair Comments HEP review Gait Training Gait Activity SPC Device Used single trek pole Comments Practiced patterning to have the option for upcoming trip. Min cues and pt able to independently pattern after short training. Manual Therapy Treatment Soft Tissue Mobilization hip flexor Body Location R iliacus & RF Mobilization Type Rolling,Strumming Intensity/Depth Moderate Body Position Supine Comments MWM Manual Traction R hip Details R hip Comments long axis traction in neutral, ER PT-OP-R Modalities Start: 02/04/22 08:35 Freq: Status: Active Protocol: Document 03/19/22 14:16 AW (Rec: 03/19/22 17:11 AW [id number]) Hot Pack/Cold Pack Treatment Cold Pack Location right anterior hip Patient Position Hooklying Treatment Duration (minutes) 10 Patient Tolerance Good PT-OP-T Assessment and Plan Start: 02/04/22 08:35 Freq: Status: Active Protocol: Document 04/03/22 08:51 AW (Rec: 04/03/22 10:37 AW [id number]) Physical Therapy Assessment Goals activity Image Consultant Goal (LTG) Pt will be able to move hip as needed for donning/doffing clothes and other ADLs w/o inc pain LTG Duration 05/08 walking Short Term Goal (STG) Pt will be able to do her 1 mile walks w/o inc pain greater than 2/10 STG Duration 04/07 Image Consultant Goal (LTG) Pt will be able return to walking 2 miles w/o inc pain greater than 2/10. LTG Duration 05/08 balance Image Consultant Goal (LTG) Pt will be able to do SLS for 10 sec w/o deviation to show improved ablance and stabiltiy LTG Duration 05/08 strength Short Term Goal (STG) Pt will be indep w/HEP STG Duration 03/28 Image Consultant Goal (LTG) Pt will score at least 4+/5 on MMT testing for BLEs to show imrpoved strength and stabiltiy to allow pt to be more active. LTG Duration 05/08 LEFS Impairment 42 Short Term Goal (STG) Pt will impove LEFS score to at least 50/80 toshow impoved functional ability. STG Duration 03/23/22 Image Consultant Goal (LTG) Pt will impove LEFS score to at least 62/80 toshow impoved functional ability. LTG Duration 05/08 Assessment Summary Assessment Nan has access to the pool via [employer] and may be interested in aquatic therapy. Focused on long axis hip traction for pain management today and Nan was able to tolerate some strengthening exercises with no increased stress at the hip. She is seeking two opinions on potential hip replacement since she has been unable to progress her walking distance or speed without significantly increasing her hip pain. Physical Therapy Plan Frequency and Duration Frequency of Treatment 2x/Week Plan of Care Start Date 02/06/22 Plan of Care End Date 05/08/22 Therapeutic Interventions Therapeutic Interventions Aquatic Therapy,Balance Training,Gait Training,Home Exercise Program,Joint Mobilizations,Manual Therapy, Neuromuscular Re-education, Patient/Caregiver Education, Self-Care/Home Management,Soft Tissue Mobilization,Taping, Therapeutic Activities, Therapeutic Exercises Modalities Cold Pack/Ice Massage,Electric Stimulation,Hot Packs, Infrared Therapy,Ultrasound Next Visit Focus/Plan Next Note Type Treatment Note Next Visit Plan STM RLE, hip joint mobs, review HEP, gait training for glute drive. Follow up on plans for ortho consult
--- NOTE | 2022-04-16 15:13 | PT.OTN ---
Current Diagnoses Pain in right hip (04/16/22) Segmental and somatic dysfunction of pelvic region (04/16/22) Difficulty in walking, not elsewhere classified (04/16/22) Abnormal posture (04/16/22) Weakness (04/16/22) Physical Therapy Treatment Note PT-OP-A Visit Information Start: 02/04/22 08:35 Freq: Status: Active Protocol: Document 04/16/22 13:01 [facility] (Rec: 04/16/22 15:13 [facility] [id number]) Out-Patient Physical Therapy Visit Information Visit Information Visit Type Progress Note Visit Note 06/18 Visit Start Time 13:00 Visit Stop Time 13:40 Total Visit Minutes 40 Visit Number 10 Number of KETTLE LOADER Visits 0 PT-OP-B Current Condition Start: 02/04/22 08:35 Freq: Status: Active Protocol: Document 02/06/22 08:24 [facility] (Rec: 02/06/22 09:02 [facility] [id number]) Current Condition History of Current Condition Onset Date December worsening Current Complaints R hip History of Current Condition Pt has R hip pain and notes when she walks for longer distances. Pt reports in December she had a lot of company and was up/down staris a lot and was on feet a lot and after that she noticed it start to really bother her. She is hopign to put of a hip replacement. She had L ant MICHAEL in December of 2015 and was told by surgeon to avoid knee going all the way to the chest. She feels like seh cannot go for hikes or walks d/t pain. She likes to walk at a good pace and would walk a few miles 5 days a week with occ longer hikes. Prior to December, pt was able to do her consistant walks and only had the pain occ. Recently, she has only gone about 3-4x/week and walked about 1/2 of what she did before (so about 1 mile) and some of those walks, her pain would start to get pretty bad. Pt reports balacne problems. Last fall was before moving here about 2.5 years ago in the house when she was rushing around tripped over cord. Otherwsie a few other falls throughout the years, tripping over a curb and fell stepping over a branch in her driveway. She does do Silver Sneakers and has been missing that occ d/t pain. Prior Treatments and Tests Xray:IMPRESSION: Severe right hip joint osteoarthritis. No fracture or dislocation. No evidence of avascular necrosis . Seeing DO for treatment Treatment Goals Patient/Caregiver Goals avoid MICHAEL, be able to walk more PT-OP-C Subjective Start: 02/04/22 08:35 Freq: Status: Active Protocol: Document 04/16/22 13:01 [facility] (Rec: 04/16/22 15:13 [facility] [id number]) OP-PT Subjective Patient Comments Patient Comments pt reports she has been more sore recently w/her trip and unsure if she is doing too much at PT PT-OP-D Balance Start: 02/04/22 08:35 Freq: Status: Active Protocol: Document 02/06/22 08:24 [facility] (Rec: 02/06/22 09:02 [facility] [id number]) Balance Tests Single Limb Standing Single Limb- Right 4 sec w/a lot f deviations Single Limb- Left 6 sec w/deviation PT-OP-G Mobility & Gait Start: 02/04/22 08:35 Freq: Status: Active Protocol: Document 02/06/22 08:24 [facility] (Rec: 02/06/22 09:02 [facility] [id number]) OP Gait Assessment Comments Gait Comments dec stance time on RLE and fwd flex on R side w/WB. dec push off PT-OP-K Range of Motion Start: 02/04/22 08:35 Freq: Status: Active Protocol: Document 02/06/22 08:24 [facility] (Rec: 02/06/22 09:02 [facility] [id number]) Hip Goniometric Range of Motion Hip Right Active Flexion w/Knee Flexed 91 Straight Leg Raise 48 Left Active Flexion w/Knee Flexed 100 Straight Leg Raise 47 PT-OP-L Special Tests Start: 02/04/22 08:35 Freq: Status: Active Protocol: Document 02/06/22 08:24 [facility] (Rec: 02/06/22 09:02 [facility] [id number]) Special Tests Hip Special Tests Astrid's Test Results positive R PT-OP-M Strength Start: 02/04/22 08:35 Freq: Status: Active Protocol: Document 04/16/22 13:01 [facility] (Rec: 04/16/22 15:13 [facility] [id number]) Hip Strength Hip Manual Muscle Testing Right Flexion (L2) 4- Good- Extension (S1) 3+ Fair+ Abduction 4 Good Adduction 3+ Fair+ External Rotation 4 Good Internal Rotation 4+ Good+ Left Flexion (L2) 4- Good- Extension (S1) 3+ Fair+ Abduction 4- Good- Adduction 4- Good- External Rotation 4 Good Internal Rotation 4+ Good+ Knee Strength Knee Manual Muscle Testing Right Flexion (S2) 4 Good Extension (L3) 4 Good Left Flexion (S2) 4 Good Extension (L3) 4+ Good+ Ankle/Foot Strength Ankle and Foot Manual Muscle Testing Right Dorsiflexion (L4) 5 Normal Plantarflexion (S1) 5 Normal Left Dorsiflexion (L4) 5 Normal Plantarflexion (S1) 5 Normal Comments PF tested seated PT-OP-Q Treatments Start: 02/04/22 08:35 Freq: Status: Active Protocol: Document 04/16/22 13:01 [facility] (Rec: 04/16/22 15:13 [facility] [id number]) Cardio Equipment Recumbent Elliptical (Lockr) Duration (Minutes) 7 Resistance 3 Seat Position 6 Other less irritating than recumb bike Manual Therapy Treatment Soft Tissue Mobilization adductors Body Location adductors Mobilization Type Rolling,Strumming Intensity/Depth Moderate Body Position Supine Comments w/AROM hip ER hip flexor Body Location R iliacus & RF Mobilization Type Rolling,Strumming Intensity/Depth Moderate Body Position Supine Comments FM w/mellissa knife position Joint Mobilizations hip Joint R Direction inf FM & hooklying ER & IR FM PT-OP-R Modalities Start: 02/04/22 08:35 Freq: Status: Active Protocol: Document 03/19/22 14:16 AW (Rec: 03/19/22 17:11 AW [id number]) Hot Pack/Cold Pack Treatment Cold Pack Location right anterior hip Patient Position Hooklying Treatment Duration (minutes) 10 Patient Tolerance Good PT-OP-T Assessment and Plan Start: 02/04/22 08:35 Freq: Status: Active Protocol: Document 04/16/22 13:01 [facility] (Rec: 04/16/22 15:13 [facility] [id number]) Physical Therapy Assessment Goals activity Group Home Goal (LTG) Pt will be able to move hip as needed for donning/doffing clothes and other ADLs w/o inc pain 04/16-reaching down is still painful LTG Duration 05/08 walking Short Term Goal (STG) Pt will be able to do her 1 mile walks w/o inc pain greater than 2/10 04/16-still pain w/wlkng STG Duration 04/07 Service Dispatcher Goal (LTG) Pt will be able return to walking 2 miles w/o inc pain greater than 2/10. LTG Duration 05/08 balance Service Dispatcher Goal (LTG) Pt will be able to do SLS for 10 sec w/o deviation to show improved ablance and stabiltiy LTG Duration 05/08 strength Short Term Goal (STG) Pt will be indep w/HEP 04/16-pt doing less PT exercises d/t pain STG Duration 03/28 Group Home Goal (LTG) Pt will score at least 4+/5 on MMT testing for BLEs to show imrpoved strength and stabiltiy to allow pt to be more active. 04/16-some improvement LTG Duration 05/08 LEFS Impairment 42 Short Term Goal (STG) Pt will impove LEFS score to at least 50/80 toshow impoved functional ability. 04/16-n/t STG Duration 03/23/22 Service Dispatcher Goal (LTG) Pt will impove LEFS score to at least 62/80 toshow impoved functional ability. LTG Duration 05/08 Assessment Summary Assessment Pt does show some improvements in strength w/PT but is still having notable pain in hip and is pursuing 2 ortho surgeon consults for potential MICHAEL. She did have improved flex and IR after manual and had slight less limp after manual but still pain in WB. Cont PT to work on stabilizing hip jt and imrpoving mobility . Physical Therapy Plan Frequency and Duration Frequency of Treatment 2x/Week Plan of Care Start Date 02/06/22 Plan of Care End Date 05/08/22 Next Visit Focus/Plan Next Note Type Treatment Note Next Visit Plan Check pt HEP for pain & make sure it is painfree, STM RLE, hip joint mobs, review HEP, gait training for glute drive.
--- NOTE | 2022-04-23 12:16 | PT.OTN ---
Current Diagnoses Pain in right hip (04/23/22) Segmental and somatic dysfunction of pelvic region (04/23/22) Difficulty in walking, not elsewhere classified (04/23/22) Abnormal posture (04/23/22) Weakness (04/23/22) Physical Therapy Treatment Note PT-OP-A Visit Information Start: 02/04/22 08:35 Freq: Status: Active Protocol: Document 04/23/22 10:33 AW (Rec: 04/23/22 12:15 AW [id number]) Out-Patient Physical Therapy Visit Information Visit Information Visit Type Treatment Note Visit Start Time 11:15 Visit Stop Time 12:00 Total Visit Minutes 45 Visit Number 11 Number of BUZZSAW OPERATOR Visits 0 Evaluation Information Evaluation Date 02/06/22 PT-OP-B Current Condition Start: 02/04/22 08:35 Freq: Status: Active Protocol: Document 02/06/22 08:24 [facility] (Rec: 02/06/22 09:02 [facility] [id number]) Current Condition History of Current Condition Onset Date December worsening Current Complaints R hip History of Current Condition Pt has R hip pain and notes when she walks for longer distances. Pt reports in December she had a lot of company and was up/down staris a lot and was on feet a lot and after that she noticed it start to really bother her. She is hopign to put of a hip replacement. She had L ant MICHAEL in December of 2015 and was told by surgeon to avoid knee going all the way to the chest. She feels like seh cannot go for hikes or walks d/t pain. She likes to walk at a good pace and would walk a few miles 5 days a week with occ longer hikes. Prior to December, pt was able to do her consistant walks and only had the pain occ. Recently, she has only gone about 3-4x/week and walked about 1/2 of what she did before (so about 1 mile) and some of those walks, her pain would start to get pretty bad. Pt reports balacne problems. Last fall was before moving here about 2.5 years ago in the house when she was rushing around tripped over cord. Otherwsie a few other falls throughout the years, tripping over a curb and fell stepping over a branch in her driveway. She does do Silver Sneakers and has been missing that occ d/t pain. Prior Treatments and Tests Xray:IMPRESSION: Severe right hip joint osteoarthritis. No fracture or dislocation. No evidence of avascular necrosis . Seeing DO for treatment Treatment Goals Patient/Caregiver Goals avoid MICHAEL, be able to walk more PT-OP-C Subjective Start: 02/04/22 08:35 Freq: Status: Active Protocol: Document 04/23/22 10:33 AW (Rec: 04/23/22 12:15 AW [id number]) OP-PT Subjective Patient Comments Patient Comments Has been taking walking daily with trekking poles. Still doing silver sneakers. Whole body hurts by end of day because she feels so tense due to pain. Remembers now that she twisted her left knee during the last leg of her trip. PT-OP-D Balance Start: 02/04/22 08:35 Freq: Status: Active Protocol: Document 02/06/22 08:24 [facility] (Rec: 02/06/22 09:02 [facility] [id number]) Balance Tests Single Limb Standing Single Limb- Right 4 sec w/a lot f deviations Single Limb- Left 6 sec w/deviation PT-OP-G Mobility & Gait Start: 02/04/22 08:35 Freq: Status: Active Protocol: Document 02/06/22 08:24 [facility] (Rec: 02/06/22 09:02 [facility] [id number]) OP Gait Assessment Comments Gait Comments dec stance time on RLE and fwd flex on R side w/WB. dec push off PT-OP-K Range of Motion Start: 02/04/22 08:35 Freq: Status: Active Protocol: Document 02/06/22 08:24 [facility] (Rec: 02/06/22 09:02 [facility] [id number]) Hip Goniometric Range of Motion Hip Right Active Flexion w/Knee Flexed 91 Straight Leg Raise 48 Left Active Flexion w/Knee Flexed 100 Straight Leg Raise 47 PT-OP-L Special Tests Start: 02/04/22 08:35 Freq: Status: Active Protocol: Document 02/06/22 08:24 [facility] (Rec: 02/06/22 09:02 [facility] [id number]) Special Tests Hip Special Tests Astrid's Test Results positive R PT-OP-M Strength Start: 02/04/22 08:35 Freq: Status: Active Protocol: Document 04/16/22 13:01 [facility] (Rec: 04/16/22 15:13 [facility] [id number]) Hip Strength Hip Manual Muscle Testing Right Flexion (L2) 4- Good- Extension (S1) 3+ Fair+ Abduction 4 Good Adduction 3+ Fair+ External Rotation 4 Good Internal Rotation 4+ Good+ Left Flexion (L2) 4- Good- Extension (S1) 3+ Fair+ Abduction 4- Good- Adduction 4- Good- External Rotation 4 Good Internal Rotation 4+ Good+ Knee Strength Knee Manual Muscle Testing Right Flexion (S2) 4 Good Extension (L3) 4 Good Left Flexion (S2) 4 Good Extension (L3) 4+ Good+ Ankle/Foot Strength Ankle and Foot Manual Muscle Testing Right Dorsiflexion (L4) 5 Normal Plantarflexion (S1) 5 Normal Left Dorsiflexion (L4) 5 Normal Plantarflexion (S1) 5 Normal Comments PF tested seated PT-OP-Q Treatments Start: 02/04/22 08:35 Freq: Status: Active Protocol: Document 04/23/22 10:33 AW (Rec: 04/23/22 12:15 AW [id number]) Cardio Equipment Recumbent Elliptical ([employer]) Duration (Minutes) 7 Resistance 3 Seat Position 6 Other less irritating than recumb bike Therapeutic Exercises Supine Exercises bridge Supine Exercise Name core engaged Side bilateral Equipment Used L2 around knees for ER Reps/Minutes 10 Standing Exercises mini squat Standing Exercise Name squat tap Equipment Used mesh chair Comments HEP review Manual Therapy Treatment Soft Tissue Mobilization adductors Body Location adductors Mobilization Type Rolling,Strumming Intensity/Depth Moderate Body Position Supine Comments w/AROM hip ER hip flexor Body Location R iliacus & RF Mobilization Type Rolling,Strumming Intensity/Depth Moderate Body Position Supine Manual Traction R hip Details R hip Comments long axis traction in neutral, ER Self-Care/Home Management Treatment Education Patient Education Pain Management Other Education Introduced and demonstrated progressive muscle relaxation and diaphragmatic breathing exercises for home practice to help Nan manage her pain symptoms. PT-OP-R Modalities Start: 02/04/22 08:35 Freq: Status: Active Protocol: Document 03/19/22 14:16 AW (Rec: 03/19/22 17:11 AW [id number]) Hot Pack/Cold Pack Treatment Cold Pack Location right anterior hip Patient Position Hooklying Treatment Duration (minutes) 10 Patient Tolerance Good PT-OP-T Assessment and Plan Start: 02/04/22 08:35 Freq: Status: Active Protocol: Document 04/23/22 10:33 AW (Rec: 04/23/22 12:15 AW [id number]) Physical Therapy Assessment Goals activity Halfway Goal (LTG) Pt will be able to move hip as needed for donning/doffing clothes and other ADLs w/o inc pain 04/16-reaching down is still painful LTG Duration 05/08 walking Short Term Goal (STG) Pt will be able to do her 1 mile walks w/o inc pain greater than 2/10 04/16-still pain w/wlkng STG Duration 04/07 Halfway Goal (LTG) Pt will be able return to walking 2 miles w/o inc pain greater than 2/10. LTG Duration 05/08 balance Security Sales Manager Goal (LTG) Pt will be able to do SLS for 10 sec w/o deviation to show improved balance and stability . LTG Duration 05/08 strength Short Term Goal (STG) Pt will be indep w/HEP 04/16-pt doing less PT exercises d/t pain STG Duration 03/28 Halfway Goal (LTG) Pt will score at least 4+/5 on MMT testing for BLEs to show imrpoved strength and stabiltiy to allow pt to be more active. 04/16-some improvement LTG Duration 05/08 LEFS Impairment 42 Short Term Goal (STG) Pt will impove LEFS score to at least 50/80 toshow impoved functional ability. 04/16-n/t STG Duration 03/23/22 Security Sales Manager Goal (LTG) Pt will impove LEFS score to at least 62/80 toshow impoved functional ability. LTG Duration 05/08 Assessment Summary Assessment Nan continues to walk shorter distances with bilateral trekking poles but with increase in pain. She states today that she may have injured her left knee during travel. Stress testing of the left knee today was negative. She does have some lateral joint line tenderness. Nan sees an ortho surgeon tomorrow and will have a second opinion in early May. She does respond well to manual therapy and some strengthening for right hip. Physical Therapy Plan Frequency and Duration Frequency of Treatment 2x/Week Plan of Care Start Date 02/06/22 Plan of Care End Date 05/08/22 Therapeutic Interventions Therapeutic Interventions Aquatic Therapy,Balance Training,Gait Training,Home Exercise Program,Joint Mobilizations,Manual Therapy, Neuromuscular Re-education, Patient/Caregiver Education, Self-Care/Home Management,Soft Tissue Mobilization,Taping, Therapeutic Activities, Therapeutic Exercises Modalities Cold Pack/Ice Massage,Electric Stimulation,Hot Packs, Infrared Therapy,Ultrasound Next Visit Focus/Plan Next Note Type Treatment Note Next Visit Plan Check pt HEP for pain & make sure it is painfree, STM RLE, hip joint mobs, review HEP, gait training for glute drive.
--- NOTE | 2022-05-07 12:10 | PT.OTN ---
Current Diagnoses Pain in right hip (05/07/22) Segmental and somatic dysfunction of pelvic region (05/07/22) Difficulty in walking, not elsewhere classified (05/07/22) Abnormal posture (05/07/22) Weakness (05/07/22) Physical Therapy Treatment Note PT-OP-A Visit Information Start: 02/04/22 08:35 Freq: Status: Active Protocol: Document 05/07/22 08:59 AW (Rec: 05/07/22 12:09 AW [id number]) Out-Patient Physical Therapy Visit Information Visit Information Visit Type Progress Note Visit Start Time 11:15 Visit Stop Time 12:00 Total Visit Minutes 45 Visit Number 12 Number of SCAFFOLD ERECTOR Visits 0 Evaluation Information Evaluation Date 02/06/22 PT-OP-B Current Condition Start: 02/04/22 08:35 Freq: Status: Active Protocol: Document 02/06/22 08:24 [facility] (Rec: 02/06/22 09:02 [facility] [id number]) Current Condition History of Current Condition Onset Date December worsening Current Complaints R hip History of Current Condition Pt has R hip pain and notes when she walks for longer distances. Pt reports in December she had a lot of company and was up/down staris a lot and was on feet a lot and after that she noticed it start to really bother her. She is hopign to put of a hip replacement. She had L ant MICHAEL in December of 2015 and was told by surgeon to avoid knee going all the way to the chest. She feels like seh cannot go for hikes or walks d/t pain. She likes to walk at a good pace and would walk a few miles 5 days a week with occ longer hikes. Prior to December, pt was able to do her consistant walks and only had the pain occ. Recently, she has only gone about 3-4x/week and walked about 1/2 of what she did before (so about 1 mile) and some of those walks, her pain would start to get pretty bad. Pt reports balacne problems. Last fall was before moving here about 2.5 years ago in the house when she was rushing around tripped over cord. Otherwsie a few other falls throughout the years, tripping over a curb and fell stepping over a branch in her driveway. She does do Silver Sneakers and has been missing that occ d/t pain. Prior Treatments and Tests Xray:IMPRESSION: Severe right hip joint osteoarthritis. No fracture or dislocation. No evidence of avascular necrosis . Seeing DO for treatment Treatment Goals Patient/Caregiver Goals avoid MICHAEL, be able to walk more PT-OP-C Subjective Start: 02/04/22 08:35 Freq: Status: Active Protocol: Document 05/07/22 08:59 AW (Rec: 05/07/22 12:09 AW [id number]) OP-PT Subjective Patient Comments Patient Comments Went to local ortho who recommended anterior hip replacement. Will go to second opinion appointment in [place] on 05/16. Concerned that she may need some dental work which could set back her timeline for surgery. PT-OP-D Balance Start: 02/04/22 08:35 Freq: Status: Active Protocol: Document 02/06/22 08:24 [facility] (Rec: 02/06/22 09:02 [facility] [id number]) Balance Tests Single Limb Standing Single Limb- Right 4 sec w/a lot f deviations Single Limb- Left 6 sec w/deviation PT-OP-G Mobility & Gait Start: 02/04/22 08:35 Freq: Status: Active Protocol: Document 02/06/22 08:24 [facility] (Rec: 02/06/22 09:02 [facility] [id number]) OP Gait Assessment Comments Gait Comments dec stance time on RLE and fwd flex on R side w/WB. dec push off PT-OP-K Range of Motion Start: 02/04/22 08:35 Freq: Status: Active Protocol: Document 02/06/22 08:24 [facility] (Rec: 02/06/22 09:02 [facility] [id number]) Hip Goniometric Range of Motion Hip Right Active Flexion w/Knee Flexed 91 Straight Leg Raise 48 Left Active Flexion w/Knee Flexed 100 Straight Leg Raise 47 PT-OP-L Special Tests Start: 02/04/22 08:35 Freq: Status: Active Protocol: Document 02/06/22 08:24 [facility] (Rec: 02/06/22 09:02 [facility] [id number]) Special Tests Hip Special Tests Astrid's Test Results positive R PT-OP-M Strength Start: 02/04/22 08:35 Freq: Status: Active Protocol: Document 04/16/22 13:01 [facility] (Rec: 04/16/22 15:13 [facility] [id number]) Hip Strength Hip Manual Muscle Testing Right Flexion (L2) 4- Good- Extension (S1) 3+ Fair+ Abduction 4 Good Adduction 3+ Fair+ External Rotation 4 Good Internal Rotation 4+ Good+ Left Flexion (L2) 4- Good- Extension (S1) 3+ Fair+ Abduction 4- Good- Adduction 4- Good- External Rotation 4 Good Internal Rotation 4+ Good+ Knee Strength Knee Manual Muscle Testing Right Flexion (S2) 4 Good Extension (L3) 4 Good Left Flexion (S2) 4 Good Extension (L3) 4+ Good+ Ankle/Foot Strength Ankle and Foot Manual Muscle Testing Right Dorsiflexion (L4) 5 Normal Plantarflexion (S1) 5 Normal Left Dorsiflexion (L4) 5 Normal Plantarflexion (S1) 5 Normal Comments PF tested seated PT-OP-Q Treatments Start: 02/04/22 08:35 Freq: Status: Active Protocol: Document 05/07/22 08:59 AW (Rec: 05/07/22 12:09 AW [id number]) Therapeutic Exercises Supine Exercises bridge Supine Exercise Name core engaged Side bilateral Equipment Used L2 around knees for ER Reps/Minutes 10 Standing Exercises mini squat Standing Exercise Name squat tap Equipment Used mesh chair Comments HEP review Manual Therapy Treatment Soft Tissue Mobilization hip flexor Body Location R iliacus & RF & adductors Mobilization Type Rolling,Strumming Intensity/Depth Moderate Body Position Supine Joint Mobilizations hip Joint R Direction inf FM & hooklying ER & IR FM Manual Traction R hip Details R hip Comments long axis traction in neutral, ER Self-Care/Home Management Treatment Education Patient Education Pain Management Other Education Continued education on pain management tools including breathing exercises and progressive muscle relaxation. Pt states she has found these helpful. PT-OP-R Modalities Start: 02/04/22 08:35 Freq: Status: Active Protocol: Document 03/19/22 14:16 AW (Rec: 03/19/22 17:11 AW [id number]) Hot Pack/Cold Pack Treatment Cold Pack Location right anterior hip Patient Position Hooklying Treatment Duration (minutes) 10 Patient Tolerance Good PT-OP-T Assessment and Plan Start: 02/04/22 08:35 Freq: Status: Active Protocol: Document 05/07/22 08:59 AW (Rec: 05/07/22 12:09 AW [id number]) Physical Therapy Assessment Goals activity Group Home Goal (LTG) Pt will be able to move hip as needed for donning/doffing clothes and other ADLs w/o inc pain 04/16-reaching down is still painful 05/07/22 - still painful LTG Duration 05/08 walking Short Term Goal (STG) Pt will be able to do her 1 mile walks w/o inc pain greater than 2/10 04/16-still pain w/wlkng 05/07 - walking 20-30 minutes with 6/10 pain afterward. Likes to ice afterward STG Duration 04/07 Sheet Metal Insulator Goal (LTG) Pt will be able return to walking 2 miles w/o inc pain greater than 2/10. LTG Duration 05/08 balance Group Home Goal (LTG) Pt will be able to do SLS for 10 sec w/o deviation to show improved balance and stability . LTG Duration 05/08 strength Short Term Goal (STG) Pt will be indep w/HEP 04/16-pt doing less PT exercises d/t pain STG Duration 03/28 Group Home Goal (LTG) Pt will score at least 4+/5 on MMT testing for BLEs to show imrpoved strength and stabiltiy to allow pt to be more active. 04/16-some improvement LTG Duration 05/08 LEFS Impairment 42 Short Term Goal (STG) Pt will impove LEFS score to at least 50/80 toshow impoved functional ability. 04/16-n/t STG Duration 03/23/22 Group Home Goal (LTG) Pt will impove LEFS score to at least 62/80 toshow impoved functional ability. LTG Duration 05/08 Assessment Summary Assessment Nan is likely to elect hip replacement. She has seen one ortho surgeon and will see another next week. She has made minimal progress with PT and will likely discharge with HEP after next appointment with plan to return after surgery. Extending POC today to cover final visit(s). Physical Therapy Plan Frequency and Duration Frequency of Treatment 1x/Week Plan of Care Start Date 05/09/22 Plan of Care End Date 07/09/21 Therapeutic Interventions Therapeutic Interventions Aquatic Therapy,Balance Training,Gait Training,Home Exercise Program,Joint Mobilizations,Manual Therapy, Neuromuscular Re-education, Patient/Caregiver Education, Self-Care/Home Management,Soft Tissue Mobilization,Taping, Therapeutic Activities, Therapeutic Exercises Modalities Cold Pack/Ice Massage,Electric Stimulation,Hot Packs, Infrared Therapy,Ultrasound Next Visit Focus/Plan Next Note Type Treatment Note Next Visit Plan Consolidate HEP. Offer aquatic therapy as alternative to land-based until surgery.
--- NOTE | 2022-05-07 12:11 | PT.OPPOC ---
Physical, Occupational & Speech Therapy At [facility] Current Diagnoses Pain in right hip (05/07/22) Segmental and somatic dysfunction of pelvic region (05/07/22) Difficulty in walking, not elsewhere classified (05/07/22) Abnormal posture (05/07/22) Weakness (05/07/22) Visit Care Team Role Provider Type Shahriar Valente DO Attending Provider Physician Family Provider Primary Care Provider Referring Provider Specialty: Family Practice Address: [address] [place] [address], [facility] Email: Plan Of Care PT-OP-T Assessment and Plan Start: 02/04/22 08:35 Freq: Status: Active Protocol: Document 05/07/22 08:59 AW (Rec: 05/07/22 12:09 AW [id number]) Physical Therapy Assessment Goals activity Mandrel Puller Goal (LTG) Pt will be able to move hip as needed for donning/doffing clothes and other ADLs w/o inc pain 04/16-reaching down is still painful 05/07/22 - still painful LTG Duration 05/08 walking Short Term Goal (STG) Pt will be able to do her 1 mile walks w/o inc pain greater than 2/10 04/16-still pain w/wlkng 05/07 - walking 20-30 minutes with 6/10 pain afterward. Likes to ice afterward STG Duration 04/07 Alf Goal (LTG) Pt will be able return to walking 2 miles w/o inc pain greater than 2/10. LTG Duration 05/08 balance Alf Goal (LTG) Pt will be able to do SLS for 10 sec w/o deviation to show improved balance and stability . LTG Duration 05/08 strength Short Term Goal (STG) Pt will be indep w/HEP 04/16-pt doing less PT exercises d/t pain STG Duration 03/28 Mandrel Puller Goal (LTG) Pt will score at least 4+/5 on MMT testing for BLEs to show imrpoved strength and stabiltiy to allow pt to be more active. 04/16-some improvement LTG Duration 05/08 LEFS Impairment 42 Short Term Goal (STG) Pt will impove LEFS score to at least 50/80 toshow impoved functional ability. 04/16-n/t STG Duration 03/23/22 Mandrel Puller Goal (LTG) Pt will impove LEFS score to at least 62/80 toshow impoved functional ability. LTG Duration 05/08 Assessment Summary Assessment Nan is likely to elect hip replacement. She has seen one ortho surgeon and will see another next week. She has made minimal progress with PT and will likely discharge with HEP after next appointment with plan to return after surgery. Extending POC today to cover final visit(s). Physical Therapy Plan Frequency and Duration Frequency of Treatment 1x/Week Plan of Care Start Date 05/09/22 Plan of Care End Date 07/09/21 Therapeutic Interventions Therapeutic Interventions Aquatic Therapy,Balance Training,Gait Training,Home Exercise Program,Joint Mobilizations,Manual Therapy, Neuromuscular Re-education, Patient/Caregiver Education, Self-Care/Home Management,Soft Tissue Mobilization,Taping, Therapeutic Activities, Therapeutic Exercises Modalities Cold Pack/Ice Massage,Electric Stimulation,Hot Packs, Infrared Therapy,Ultrasound Next Visit Focus/Plan Next Note Type Treatment Note Next Visit Plan Consolidate HEP. Offer aquatic therapy as alternative to land-based until surgery. Plan of Care Dates Plan of Care Start Date 05/09/22 Plan of Care End Date 07/09/21 Electronically Signed by: Namita Win, PT 05/07/22 1212 If you are in agreement with this Plan of Care, please return a signed and dated copy. I have reviewed this Plan of Care and certify that the skilled therapy services above are required to meet the patient?s needs. Physician Signature Date Printed Name and Credentials Clinical Instructor Signature Printed Name and Credentials
--- NOTE | 2022-05-21 16:39 | PT.OTN ---
Current Diagnoses Pain in right hip (05/21/22) Segmental and somatic dysfunction of pelvic region (05/21/22) Difficulty in walking, not elsewhere classified (05/21/22) Abnormal posture (05/21/22) Weakness (05/21/22) Physical Therapy Treatment Note PT-OP-A Visit Information Start: 02/04/22 08:35 Freq: Status: Active Protocol: Document 05/21/22 13:43 AW (Rec: 05/21/22 14:34 AW [id number]) Out-Patient Physical Therapy Visit Information Visit Information Visit Type Treatment Note Visit Start Time 13:45 Visit Stop Time 14:25 Total Visit Minutes 40 Visit Number 13 Number of FARM DEMONSTRATOR Visits 0 Evaluation Information Evaluation Date 02/06/22 PT-OP-B Current Condition Start: 02/04/22 08:35 Freq: Status: Active Protocol: Document 02/06/22 08:24 [facility] (Rec: 02/06/22 09:02 [facility] [id number]) Current Condition History of Current Condition Onset Date December worsening Current Complaints R hip History of Current Condition Pt has R hip pain and notes when she walks for longer distances. Pt reports in December she had a lot of company and was up/down staris a lot and was on feet a lot and after that she noticed it start to really bother her. She is hopign to put of a hip replacement. She had L ant MICHAEL in December of 2015 and was told by surgeon to avoid knee going all the way to the chest. She feels like seh cannot go for hikes or walks d/t pain. She likes to walk at a good pace and would walk a few miles 5 days a week with occ longer hikes. Prior to December, pt was able to do her consistant walks and only had the pain occ. Recently, she has only gone about 3-4x/week and walked about 1/2 of what she did before (so about 1 mile) and some of those walks, her pain would start to get pretty bad. Pt reports balacne problems. Last fall was before moving here about 2.5 years ago in the house when she was rushing around tripped over cord. Otherwsie a few other falls throughout the years, tripping over a curb and fell stepping over a branch in her driveway. She does do Silver Sneakers and has been missing that occ d/t pain. Prior Treatments and Tests Xray:IMPRESSION: Severe right hip joint osteoarthritis. No fracture or dislocation. No evidence of avascular necrosis . Seeing DO for treatment Treatment Goals Patient/Caregiver Goals avoid MICHAEL, be able to walk more PT-OP-C Subjective Start: 02/04/22 08:35 Freq: Status: Active Protocol: Document 05/21/22 13:43 AW (Rec: 05/21/22 14:34 AW [id number]) OP-PT Subjective Patient Comments Patient Comments Nan decided to schedule MICHAEL in [place] on 07/08/22. Surgery will be outpatient. PT-OP-D Balance Start: 02/04/22 08:35 Freq: Status: Active Protocol: Document 02/06/22 08:24 [facility] (Rec: 02/06/22 09:02 [facility] [id number]) Balance Tests Single Limb Standing Single Limb- Right 4 sec w/a lot f deviations Single Limb- Left 6 sec w/deviation PT-OP-G Mobility & Gait Start: 02/04/22 08:35 Freq: Status: Active Protocol: Document 02/06/22 08:24 [facility] (Rec: 02/06/22 09:02 [facility] [id number]) OP Gait Assessment Comments Gait Comments dec stance time on RLE and fwd flex on R side w/WB. dec push off PT-OP-K Range of Motion Start: 02/04/22 08:35 Freq: Status: Active Protocol: Document 02/06/22 08:24 [facility] (Rec: 02/06/22 09:02 [facility] [id number]) Hip Goniometric Range of Motion Hip Right Active Flexion w/Knee Flexed 91 Straight Leg Raise 48 Left Active Flexion w/Knee Flexed 100 Straight Leg Raise 47 PT-OP-L Special Tests Start: 02/04/22 08:35 Freq: Status: Active Protocol: Document 02/06/22 08:24 [facility] (Rec: 02/06/22 09:02 [facility] [id number]) Special Tests Hip Special Tests Astrid's Test Results positive R PT-OP-M Strength Start: 02/04/22 08:35 Freq: Status: Active Protocol: Document 04/16/22 13:01 [facility] (Rec: 04/16/22 15:13 [facility] [id number]) Hip Strength Hip Manual Muscle Testing Right Flexion (L2) 4- Good- Extension (S1) 3+ Fair+ Abduction 4 Good Adduction 3+ Fair+ External Rotation 4 Good Internal Rotation 4+ Good+ Left Flexion (L2) 4- Good- Extension (S1) 3+ Fair+ Abduction 4- Good- Adduction 4- Good- External Rotation 4 Good Internal Rotation 4+ Good+ Knee Strength Knee Manual Muscle Testing Right Flexion (S2) 4 Good Extension (L3) 4 Good Left Flexion (S2) 4 Good Extension (L3) 4+ Good+ Ankle/Foot Strength Ankle and Foot Manual Muscle Testing Right Dorsiflexion (L4) 5 Normal Plantarflexion (S1) 5 Normal Left Dorsiflexion (L4) 5 Normal Plantarflexion (S1) 5 Normal Comments PF tested seated PT-OP-Q Treatments Start: 02/04/22 08:35 Freq: Status: Active Protocol: Document 05/21/22 13:43 AW (Rec: 05/21/22 14:34 AW [id number]) Cardio Equipment Recumbent Elliptical (GeckoGo) Duration (Minutes) 7 Resistance 3 Seat Position 6 Other less irritating than recumb bike Therapeutic Exercises Supine Exercises supine clam Supine Exercise Name supine clam Side bilateral Resistance TB3 Reps/Minutes x10 with 5SH Comments poor eccentric control RLE bridge Supine Exercise Name core engaged Side bilateral Equipment Used L2 around knees for ER Reps/Minutes 10 Standing Exercises mini squat Standing Exercise Name squat tap Equipment Used mesh chair Comments HEP review Gait Training Gait Activity stairs Description stairs Device Used L rail Surface 4 step, 6 step Treatment Focus patterning for post-op Comments Pt needs cues initially for patterning but can teach back rationale by end of session Manual Therapy Treatment Soft Tissue Mobilization adductors Body Location adductors Mobilization Type Rolling,Strumming Intensity/Depth Moderate Body Position Supine Comments w/AROM hip ER ITB Body Location L Mobilization Type Rolling,Strumming Intensity/Depth Moderate Body Position Supine hip flexor Body Location R iliacus & RF Mobilization Type Rolling,Strumming Intensity/Depth Moderate Body Position Supine Joint Mobilizations hip Comments poor tolerance for grade II inferior glides Manual Traction R hip Details R hip Comments long axis traction in neutral, ER Self-Care/Home Management Treatment Education Other Education Discussed pt's concerns about going home after surgery. Pt would like to do some problem- solving for her bathroom set up and discuss any helpful equipment to have in advance. Continue discussion next visit . PT-OP-R Modalities Start: 02/04/22 08:35 Freq: Status: Active Protocol: Document 03/19/22 14:16 AW (Rec: 03/19/22 17:11 AW [id number]) Hot Pack/Cold Pack Treatment Cold Pack Location right anterior hip Patient Position Hooklying Treatment Duration (minutes) 10 Patient Tolerance Good PT-OP-T Assessment and Plan Start: 02/04/22 08:35 Freq: Status: Active Protocol: Document 05/21/22 13:43 AW (Rec: 05/21/22 14:34 AW [id number]) Physical Therapy Assessment Goals activity Retirement Goal (LTG) Pt will be able to move hip as needed for donning/doffing clothes and other ADLs w/o inc pain 04/16-reaching down is still painful 05/07/22 - still painful LTG Duration 05/08 walking Short Term Goal (STG) Pt will be able to do her 1 mile walks w/o inc pain greater than 2/10 04/16-still pain w/wlkng 05/07 - walking 20-30 minutes with 6/10 pain afterward. Likes to ice afterward STG Duration 04/07 Plasterer Rough Goal (LTG) Pt will be able return to walking 2 miles w/o inc pain greater than 2/10. LTG Duration 05/08 balance Retirement Goal (LTG) Pt will be able to do SLS for 10 sec w/o deviation to show improved balance and stability . LTG Duration 05/08 strength Short Term Goal (STG) Pt will be indep w/HEP 04/16-pt doing less PT exercises d/t pain STG Duration 03/28 Retirement Goal (LTG) Pt will score at least 4+/5 on MMT testing for BLEs to show imrpoved strength and stabiltiy to allow pt to be more active. 04/16-some improvement LTG Duration 05/08 LEFS Impairment 42 Short Term Goal (STG) Pt will impove LEFS score to at least 50/80 toshow impoved functional ability. 04/16-n/t STG Duration 03/23/22 Plasterer Rough Goal (LTG) Pt will impove LEFS score to at least 62/80 toshow impoved functional ability. LTG Duration 05/08 Assessment Summary Assessment Nan has elected MICHAEL and will have surgery at the end of June. She would like to keep her remaining scheduled appointments to consolidate HEP and for pre-op education. Physical Therapy Plan Frequency and Duration Frequency of Treatment 1x/Week Plan of Care Start Date 05/09/22 Plan of Care End Date 07/09/21 Therapeutic Interventions Therapeutic Interventions Aquatic Therapy,Balance Training,Gait Training,Home Exercise Program,Joint Mobilizations,Manual Therapy, Neuromuscular Re-education, Patient/Caregiver Education, Self-Care/Home Management,Soft Tissue Mobilization,Taping, Therapeutic Activities, Therapeutic Exercises Modalities Cold Pack/Ice Massage,Electric Stimulation,Hot Packs, Infrared Therapy,Ultrasound Next Visit Focus/Plan Next Note Type Treatment Note Next Visit Plan Consolidate HEP. Problem-solve for home mgmt after surgery
--- NOTE | 2022-05-29 17:11 | PT-OP ANOTE ---
Pt called re: no show of her appt. She cancelled her appt on televox so was very apologetic. She was informed of her next scheduled appt.
--- NOTE | 2022-07-02 13:06 | PT.OPDS ---
Current Diagnoses Pain in right hip (05/21/22) Segmental and somatic dysfunction of pelvic region (05/21/22) Difficulty in walking, not elsewhere classified (05/21/22) Abnormal posture (05/21/22) Weakness (05/21/22) Visit Care Team Role Provider Type Shahriar Valente DO Attending Provider Physician Family Provider Primary Care Provider Referring Provider Specialty: [facility] Practice Address: [address] [place] [address], [facility] Email: Visit Number Visit Number 13 Discharge Summary PT-OP-B Current Condition Start: 02/04/22 08:35 Freq: Status: Active Protocol: Document 02/06/22 08:24 [facility] (Rec: 02/06/22 09:02 [facility] [id number]) Current Condition History of Current Condition Onset Date December worsening Current Complaints R hip History of Current Condition Pt has R hip pain and notes when she walks for longer distances. Pt reports in December she had a lot of company and was up/down staris a lot and was on feet a lot and after that she noticed it start to really bother her. She is hopign to put of a hip replacement. She had L ant MICHAEL in December of 2015 and was told by surgeon to avoid knee going all the way to the chest. She feels like seh cannot go for hikes or walks d/t pain. She likes to walk at a good pace and would walk a few miles 5 days a week with occ longer hikes. Prior to December, pt was able to do her consistant walks and only had the pain occ. Recently, she has only gone about 3-4x/week and walked about 1/2 of what she did before (so about 1 mile) and some of those walks, her pain would start to get pretty bad. Pt reports balacne problems. Last fall was before moving here about 2.5 years ago in the house when she was rushing around tripped over cord. Otherwsie a few other falls throughout the years, tripping over a curb and fell stepping over a branch in her driveway. She does do Silver Sneakers and has been missing that occ d/t pain. Prior Treatments and Tests Xray:IMPRESSION: Severe right hip joint osteoarthritis. No fracture or dislocation. No evidence of avascular necrosis . Seeing DO for treatment Treatment Goals Patient/Caregiver Goals avoid MICHAEL, be able to walk more PT-OP-C Subjective Start: 02/04/22 08:35 Freq: Status: Active Protocol: Document 05/21/22 13:43 AW (Rec: 05/21/22 14:34 AW [id number]) OP-PT Subjective Patient Comments Patient Comments Nan decided to schedule MICHAEL in [place] on 07/08/22. Surgery will be outpatient. PT-OP-D Balance Start: 02/04/22 08:35 Freq: Status: Active Protocol: Document 02/06/22 08:24 [facility] (Rec: 02/06/22 09:02 [facility] [id number]) Balance Tests Single Limb Standing Single Limb- Right 4 sec w/a lot f deviations Single Limb- Left 6 sec w/deviation PT-OP-G Mobility & Gait Start: 02/04/22 08:35 Freq: Status: Active Protocol: Document 02/06/22 08:24 [facility] (Rec: 02/06/22 09:02 [facility] [id number]) OP Gait Assessment Comments Gait Comments dec stance time on RLE and fwd flex on R side w/WB. dec push off PT-OP-K Range of Motion Start: 02/04/22 08:35 Freq: Status: Active Protocol: Document 02/06/22 08:24 [facility] (Rec: 02/06/22 09:02 [facility] [id number]) Hip Goniometric Range of Motion Hip Right Active Flexion w/Knee Flexed 91 Straight Leg Raise 48 Left Active Flexion w/Knee Flexed 100 Straight Leg Raise 47 PT-OP-L Special Tests Start: 02/04/22 08:35 Freq: Status: Active Protocol: Document 02/06/22 08:24 [facility] (Rec: 02/06/22 09:02 [facility] [id number]) Special Tests Hip Special Tests Astrid's Test Results positive R PT-OP-M Strength Start: 02/04/22 08:35 Freq: Status: Active Protocol: Document 04/16/22 13:01 [facility] (Rec: 04/16/22 15:13 [facility] [id number]) Hip Strength Hip Manual Muscle Testing Right Flexion (L2) 4- Good- Extension (S1) 3+ Fair+ Abduction 4 Good Adduction 3+ Fair+ External Rotation 4 Good Internal Rotation 4+ Good+ Left Flexion (L2) 4- Good- Extension (S1) 3+ Fair+ Abduction 4- Good- Adduction 4- Good- External Rotation 4 Good Internal Rotation 4+ Good+ Knee Strength Knee Manual Muscle Testing Right Flexion (S2) 4 Good Extension (L3) 4 Good Left Flexion (S2) 4 Good Extension (L3) 4+ Good+ Ankle/Foot Strength Ankle and Foot Manual Muscle Testing Right Dorsiflexion (L4) 5 Normal Plantarflexion (S1) 5 Normal Left Dorsiflexion (L4) 5 Normal Plantarflexion (S1) 5 Normal Comments PF tested seated PT-OP-T Assessment and Plan Start: 02/04/22 08:35 Freq: Status: Active Protocol: Document 07/02/22 13:05 AW (Rec: 07/02/22 13:06 AW [id number]) Physical Therapy Assessment Goals activity Assisted Goal (LTG) Pt will be able to move hip as needed for donning/doffing clothes and other ADLs w/o inc pain 04/16-reaching down is still painful 05/07/22 - still painful LTG Duration 05/08 walking Short Term Goal (STG) Pt will be able to do her 1 mile walks w/o inc pain greater than 2/10 04/16-still pain w/wlkng 05/07 - walking 20-30 minutes with 6/10 pain afterward. Likes to ice afterward STG Duration 04/07 Assisted Goal (LTG) Pt will be able return to walking 2 miles w/o inc pain greater than 2/10. LTG Duration 05/08 balance Chemistry Associate Goal (LTG) Pt will be able to do SLS for 10 sec w/o deviation to show improved balance and stability . LTG Duration 05/08 strength Short Term Goal (STG) Pt will be indep w/HEP 04/16-pt doing less PT exercises d/t pain STG Duration 03/28 Chemistry Associate Goal (LTG) Pt will score at least 4+/5 on MMT testing for BLEs to show imrpoved strength and stabiltiy to allow pt to be more active. 04/16-some improvement LTG Duration 05/08 LEFS Impairment 42 Short Term Goal (STG) Pt will impove LEFS score to at least 50/80 toshow impoved functional ability. 04/16-n/t STG Duration 03/23/22 Assisted Goal (LTG) Pt will impove LEFS score to at least 62/80 toshow impoved functional ability. LTG Duration 05/08 Physical Therapy Plan Discharge Physical Therapy Discharge Reasons Patient Request Discharge Comments Pt was last seen a month ago. At that time, she was seeking orthopedic consults for likely MICHAEL. Pt elected to cancel her last remaining appointments in anticipation of scheduling surgery. Pt is discharged from this plan of care and understands she will need a new referral in the event she wishes to return.
== END 2022-07-03 11:59 | disposition home or self-care (01) ==
LOC: PHYS 13:45
PROVIDERS: Family Provider Family Medicine; PCP Family Medicine; Referring Provider Family Medicine; Visit Provider Family Medicine
DX: M25.551 Pain in right hip (principal); M99.05 Segmental and somatic dysfunction of pelvic region; R53.1 Weakness; R29.3 Abnormal posture; R26.2 Difficulty in walking, not elsewhere classified
CPT/HCPCS: 97110; 97116; 97140; 97162; 97535; 97750

== ENCOUNTER 2022-09-18 13:45 | Outpatient (RCR) | payer MEDICARE, SELFPAY ==
--- NOTE | 2022-07-31 18:12 | PT.OIE ---
Current Diagnoses Pain in right hip (07/31/22) Difficulty in walking, not elsewhere classified (07/31/22) Weakness (07/31/22) Aftercare following joint replacement surgery (07/31/22) Presence of right artificial hip joint (07/31/22) Past Medical History (Last Updated 04/26/22 @ 11:03 by Shahriar Valente DO) Acute buttock pain Atrial flutter (~2008) Balance problem due to vestibular dysfunction Chronic pain of right hip Dysplasia of cervix Eye problem (~2016) Hearing loss (~2014) Hyperlipidemia Hypothyroidism (acquired) (~2004) Imbalance Lymphocytopenia Medicare annual wellness visit, initial Numbness of right hand Osteoarthritis Pain of right thumb Pelvic somatic dysfunction Physician orders for life-sustaining treatment (POLST) form indicates patient wish for wl-zpe-[id number] status Sacral region somatic dysfunction Somatic dysfunction of lower extremity Upper extremity somatic dysfunction Vertigo Past Surgical History (Last Updated 06/19/20 @ 20:22 by Tatiana Dukes) Anesthesia History of left hip replacement (~12/2015) Visit Care Team Role Provider Type Shahriar Valente DO Attending Provider Physician Family Provider Primary Care Provider Referring Provider Specialty: Family Practice Address: [address] [place] [address], [facility] Email: Physical Therapy Initial Evaluation PT-OP-A Visit Information Start: 07/29/22 12:03 Freq: Status: Active Protocol: Document 07/31/22 15:18 [facility] (Rec: 07/31/22 16:00 [facility] [id number]) Out-Patient Physical Therapy Visit Information Visit Information Visit Type Initial Evaluation Visit Note 06/18 Visit Start Time 15:19 Visit Stop Time 16:00 Total Visit Minutes 41 Visit Number 1 Number of PURCHASING ADMINISTRATOR Visits 0 Precautions Precautions no bridging or active hip ext for 3 months; may begin strengthening at 4 weeks from surgery; keep knees apart- see referral for protocol PT-OP-B Current Condition Start: 07/29/22 12:03 Freq: Status: Active Protocol: Document 07/31/22 15:18 [facility] (Rec: 07/31/22 16:00 [facility] [id number]) Current Condition History of Current Condition Onset Date 07/08/22 Current Complaints R MICHAEL ant History of Current Condition Pt had R MICHAEL d/t conservative measures failing. R MICHAEL ant approach done on 07/08/22. Pt is under a lot of stress d/t her brother missing, so she hasn't gotten in her exercises as much but is typically getting them in 1x/day. Pt feels like her R hip is progressing well since surgery . She saw PA via telehealth and has a visit in August where she will go for a Xray. Pt reports she is just starting to walk. She took the bandage off on Friday per protocol. Pt walking 10-12 blocks 5 days a week with some soreness. She has been driving now. Pt reports she has had a nausea that has been mostly since surgery but the last couple days it has been better. She is wondering if it may have to do with taking ibuprofen (1 in Am and 1 in afternoon and 1 at night). She has started eating with the ibuprfoen. She feels like she can move around easier in bed now. Pt would like to be able to walk greater than 2 miles a day at a fast past. Friday, she went to the [employer] class but did avoid hip ext exercise . Lately, she has been able to reciprocate up/down stairs. She has had some dizziness lately. Pt does have osteoporosis and does occ have some LBP recently, dizziness, and history of L MICHAEL in 2016. During , pt notes inc dizziness. Treatment Goals Patient/Caregiver Goals Inc walk distance & be able to go on trails, make sure her gait is in good form, PT-OP-C Subjective Start: 07/29/22 12:03 Freq: Status: Active Protocol: Document 07/31/22 15:18 [facility] (Rec: 07/31/22 16:00 [facility] [id number]) Patient Questionnaires Lower Extremity Functional Scale LEFS Score 46/80 OP-PT Pain Assessment Location R hip Pain Location Details lat hip and proximal thigh Intensity 4 Scale Used Numeric (0 - 10) Description Aching Frequency Intermittent Other Pain Aggravating Factors walking distance, occ random positions Pain Alleviating Factors Cold,Medication PT-OP-D Balance Start: 07/29/22 12:03 Freq: Status: Active Protocol: Document 07/31/22 15:18 [facility] (Rec: 07/31/22 16:00 [facility] [id number]) Balance Tests Single Limb Standing Single Limb- Right 2 sec w/UE motion Single Limb- Left 5 sec PT-OP-G Mobility & Gait Start: 07/29/22 12:03 Freq: Status: Active Protocol: Document 07/31/22 15:18 [facility] (Rec: 07/31/22 16:00 [facility] [id number]) OP Gait Assessment Comments Gait Comments Dec stance time on RLE and has dec push off PT-OP-J Posture/Palpation/Skin Start: 07/29/22 12:03 Freq: Status: Active Protocol: Document 07/31/22 15:18 [facility] (Rec: 07/31/22 16:00 [facility] [id number]) Posture Evaluation [facility] Postural Classification System Lumbar Protective Mechanism Right AP 0 Lumbar Protective Mechanism Left PA 0 Lumbar Protective Mechanism Right PA 0 PT-OP-L Special Tests Start: 07/29/22 12:03 Freq: Status: Active Protocol: Document 07/31/22 15:18 [facility] (Rec: 07/31/22 16:00 [facility] [id number]) Special Tests Hip Special Tests Straight Leg Raise Comments 51 deg R; 52 L-HS tightness PT-OP-M Strength Start: 07/29/22 12:03 Freq: Status: Active Protocol: Document 07/31/22 15:18 [facility] (Rec: 07/31/22 16:00 [facility] [id number]) Hip Strength Hip Manual Muscle Testing Right Flexion (L2) 3+ Fair+ Abduction 3+ Fair+ External Rotation 3+ Fair+ Internal Rotation 4- Good- Comments ext not tested d/t restrictions; ER tested in neutral Left Flexion (L2) 3+ Fair+ Abduction 4 Good External Rotation 4 Good Internal Rotation 4 Good Knee Strength Knee Manual Muscle Testing Right Flexion (S2) 4- Good- Extension (L3) 4- Good- Left Flexion (S2) 4 Good Extension (L3) 4 Good Ankle/Foot Strength Ankle and Foot Manual Muscle Testing Right Dorsiflexion (L4) 5 Normal Plantarflexion (S1) 4 Good Comments PF tested seated B Left Dorsiflexion (L4) 5 Normal Plantarflexion (S1) 5 Normal PT-OP-T Assessment and Plan Start: 07/29/22 12:03 Freq: Status: Active Protocol: Document 07/31/22 15:18 [facility] (Rec: 07/31/22 16:00 [facility] [id number]) Physical Therapy Assessment Rehab Potential Rehabilitation Potential Good Evaluation Complexity Number of Personal Factors/Comorbidities 3 or More Number of Body Systems Impaired 4 or More Clinical Presentation at Evaluation Evolving Impairments Impairments Activity Tolerance,Balance, Functional Activities, Functional Mobility,Gait,Pain, Posture,ROM,Soft Tissue Mobility,Strength,Transfers Goals balance Short Term Goal (STG) Pt will be able to do SLS at least 6 sec B to show improved balance STG Duration 09/07/22 Executive Sous Chef Goal (LTG) Pt will be able to do SLS at least 10 sec B to show improved balance LTG Duration 10/23/22 strength Short Term Goal (STG) Pt will be indep w/HEP STG Duration 09/05/22 Executive Sous Chef Goal (LTG) Pt will score at least 4+/5 on all MMT of LE (except ext) and at lest 3/5 LPM to improve pt staiblity to feel able to do all typical activities w/o restriction. LTG Duration 10/23/22 walking Impairment can walk 1 mile-mild discomfort Short Term Goal (STG) Pt will be able to return to walking 1.5 miles with some hills w Executive Sous Chef Goal (LTG) Pt will be able to return to walking 2 miles w/ hills and trail on uneven surface at least 5x/day without pain more than 1/10. LTG Duration 10/23/22 LEFS Short Term Goal (STG) Pt will score at least 56/80 to show improved fucntional ability. STG Duration 09/07/22 Custodial Goal (LTG) Pt will score at least 65/80 to show improved fucntional ability. LTG Duration 10/23/22 Assessment Summary Assessment Pt presents 3 weeks s/p R MICHAEL ant approach w/overall good progress at this time. Pt is amb better than she was prior to surgery and noting less pain. She is a very active person and does show weakness to R side, dec balance, and still impaired gait w/dec RLE stance time. She is no longer using AD but would like to progress to walking on trails again. Pt would benefit from skilled PT to address her deficits to return her back to ease w/home activities and improve balance and ability to ambulate. Physical Therapy Plan Frequency and Duration Frequency of Treatment 1-2x/wk Duration of treatment (weeks) 12 Plan of Care Start Date 07/31/22 Plan of Care End Date 10/23/22 Therapeutic Interventions Therapeutic Interventions Balance Training,Gait Training ,Home Exercise Program,Joint Mobilizations,Manual Therapy, Neuromuscular Re-education, Patient/Caregiver Education, Self-Care/Home Management,Soft Tissue Mobilization,Taping, Therapeutic Activities, Therapeutic Exercises Modalities Cold Pack/Ice Massage,Electric Stimulation,Hot Packs, Ultrasound Next Visit Focus/Plan Next Note Type Treatment Note Next Visit Plan assess HEP from surgeon and progress as able; no wt training, seated stepper, manual to ITB and quad
--- NOTE | 2022-07-31 18:12 | PT.OPPOC ---
Physical, Occupational & Speech Therapy At [facility] Current Diagnoses Pain in right hip (07/31/22) Difficulty in walking, not elsewhere classified (07/31/22) Weakness (07/31/22) Aftercare following joint replacement surgery (07/31/22) Presence of right artificial hip joint (07/31/22) Visit Care Team Role Provider Type Shahriar Valente DO Attending Provider Physician Family Provider Primary Care Provider Referring Provider Specialty: [facility] Address: [address] [place] [address], [facility] Email: Plan Of Care PT-OP-T Assessment and Plan Start: 07/29/22 12:03 Freq: Status: Active Protocol: Document 07/31/22 15:18 [facility] (Rec: 07/31/22 16:00 [facility] [id number]) Physical Therapy Assessment Rehab Potential Rehabilitation Potential Good Evaluation Complexity Number of Personal Factors/Comorbidities 3 or More Number of Body Systems Impaired 4 or More Clinical Presentation at Evaluation Evolving Impairments Impairments Activity Tolerance,Balance, Functional Activities, Functional Mobility,Gait,Pain, Posture,ROM,Soft Tissue Mobility,Strength,Transfers Goals balance Short Term Goal (STG) Pt will be able to do SLS at least 6 sec B to show improved balance STG Duration 09/07/22 Skilled Nursing Goal (LTG) Pt will be able to do SLS at least 10 sec B to show improved balance LTG Duration 10/23/22 strength Short Term Goal (STG) Pt will be indep w/HEP STG Duration 09/05/22 Skilled Nursing Goal (LTG) Pt will score at least 4+/5 on all MMT of LE (except ext) and at lest 3/5 LPM to improve pt staiblity to feel able to do all typical activities w/o restriction. LTG Duration 10/23/22 walking Impairment can walk 1 mile-mild discomfort Short Term Goal (STG) Pt will be able to return to walking 1.5 miles with some hills w Custom Framing Specialist Goal (LTG) Pt will be able to return to walking 2 miles w/ hills and trail on uneven surface at least 5x/day without pain more than 1/10. LTG Duration 10/23/22 LEFS Short Term Goal (STG) Pt will score at least 56/80 to show improved fucntional ability. STG Duration 09/07/22 Custom Framing Specialist Goal (LTG) Pt will score at least 65/80 to show improved fucntional ability. LTG Duration 10/23/22 Assessment Summary Assessment Pt presents 3 weeks s/p R MICHAEL ant approach w/overall good progress at this time. Pt is amb better than she was prior to surgery and noting less pain. She is a very active person and does show weakness to R side, dec balance, and still impaired gait w/dec RLE stance time. She is no longer using AD but would like to progress to walking on trails again. Pt would benefit from skilled PT to address her deficits to return her back to ease w/home activities and improve balance and ability to ambulate. Physical Therapy Plan Frequency and Duration Frequency of Treatment 1-2x/wk Duration of treatment (weeks) 12 Plan of Care Start Date 07/31/22 Plan of Care End Date 10/23/22 Therapeutic Interventions Therapeutic Interventions Balance Training,Gait Training ,Home Exercise Program,Joint Mobilizations,Manual Therapy, Neuromuscular Re-education, Patient/Caregiver Education, Self-Care/Home Management,Soft Tissue Mobilization,Taping, Therapeutic Activities, Therapeutic Exercises Modalities Cold Pack/Ice Massage,Electric Stimulation,Hot Packs, Ultrasound Next Visit Focus/Plan Next Note Type Treatment Note Next Visit Plan assess HEP from surgeon and progress as able; no wt training, seated stepper, manual to ITB and quad Plan of Care Dates Plan of Care Start Date 07/31/22 Plan of Care End Date 10/23/22 Electronically Signed by: Sudha Stubbs, PT 07/31/22 148 If you are in agreement with this Plan of Care, please return a signed and dated copy. I have reviewed this Plan of Care and certify that the skilled therapy services above are required to meet the patient?s needs. Physician Signature Date Printed Name and Credentials Clinical Instructor Signature Printed Name and Credentials
--- NOTE | 2022-08-05 09:02 | PT.OTN ---
Current Diagnoses Pain in right hip (08/05/22) Difficulty in walking, not elsewhere classified (08/05/22) Weakness (08/05/22) Aftercare following joint replacement surgery (08/05/22) Presence of right artificial hip joint (08/05/22) Physical Therapy Treatment Note PT-OP-A Visit Information Start: 07/29/22 12:03 Freq: Status: Active Protocol: Document 08/05/22 08:17 [facility] (Rec: 08/05/22 09:01 [facility] [id number]) Out-Patient Physical Therapy Visit Information Visit Information Visit Type Treatment Note Visit Note 07/19 Visit Start Time 08:19 Visit Stop Time 08:59 Total Visit Minutes 40 Visit Number 2 Number of GROWTH MEDIA MIXER MUSHROOM Visits 0 PT-OP-B Current Condition Start: 07/29/22 12:03 Freq: Status: Active Protocol: Document 07/31/22 15:18 [facility] (Rec: 07/31/22 16:00 [facility] [id number]) Current Condition History of Current Condition Onset Date 07/08/22 Current Complaints R MICHAEL ant History of Current Condition Pt had R MICHAEL d/t conservative measures failing. R MICHAEL ant approach done on 07/08/22. Pt is under a lot of stress d/t her brother missing, so she hasn't gotten in her exercises as much but is typically getting them in 1x/day. Pt feels like her R hip is progressing well since surgery . She saw PA via telehealth and has a visit in August where she will go for a Xray. Pt reports she is just starting to walk. She took the bandage off on Friday per protocol. Pt walking 10-12 blocks 5 days a week with some soreness. She has been driving now. Pt reports she has had a nausea that has been mostly since surgery but the last couple days it has been better. She is wondering if it may have to do with taking ibuprofen (1 in Am and 1 in afternoon and 1 at night). She has started eating with the ibuprfoen. She feels like she can move around easier in bed now. Pt would like to be able to walk greater than 2 miles a day at a fast past. Friday, she went to the [employer] class but did avoid hip ext exercise . Lately, she has been able to reciprocate up/down stairs. She has had some dizziness lately. Pt does have osteoporosis and does occ have some LBP recently, dizziness, and history of L MICHAEL in 2016. During , pt notes inc dizziness. Treatment Goals Patient/Caregiver Goals Inc walk distance & be able to go on trails, make sure her gait is in good form, PT-OP-C Subjective Start: 07/29/22 12:03 Freq: Status: Active Protocol: Document 08/05/22 08:17 [facility] (Rec: 08/05/22 09:01 [facility] [id number]) OP-PT Subjective Patient Comments Patient Comments Pt reports she walked a little uphill and back and walked at a pretty good speed. She did 27 min roundtrip. She thinks about a mile. PT-OP-D Balance Start: 07/29/22 12:03 Freq: Status: Active Protocol: Document 07/31/22 15:18 [facility] (Rec: 07/31/22 16:00 [facility] [id number]) Balance Tests Single Limb Standing Single Limb- Right 2 sec w/UE motion Single Limb- Left 5 sec PT-OP-G Mobility & Gait Start: 07/29/22 12:03 Freq: Status: Active Protocol: Document 07/31/22 15:18 [facility] (Rec: 07/31/22 16:00 [facility] [id number]) OP Gait Assessment Comments Gait Comments Dec stance time on RLE and has dec push off PT-OP-J Posture/Palpation/Skin Start: 07/29/22 12:03 Freq: Status: Active Protocol: Document 07/31/22 15:18 [facility] (Rec: 07/31/22 16:00 [facility] [id number]) Posture Evaluation [facility] Postural Classification System Lumbar Protective Mechanism Right AP 0 Lumbar Protective Mechanism Left PA 0 Lumbar Protective Mechanism Right PA 0 PT-OP-L Special Tests Start: 07/29/22 12:03 Freq: Status: Active Protocol: Document 07/31/22 15:18 [facility] (Rec: 07/31/22 16:00 [facility] [id number]) Special Tests Hip Special Tests Straight Leg Raise Comments 51 deg R; 52 L-HS tightness PT-OP-M Strength Start: 07/29/22 12:03 Freq: Status: Active Protocol: Document 07/31/22 15:18 [facility] (Rec: 07/31/22 16:00 [facility] [id number]) Hip Strength Hip Manual Muscle Testing Right Flexion (L2) 3+ Fair+ Abduction 3+ Fair+ External Rotation 3+ Fair+ Internal Rotation 4- Good- Comments ext not tested d/t restrictions; ER tested in neutral Left Flexion (L2) 3+ Fair+ Abduction 4 Good External Rotation 4 Good Internal Rotation 4 Good Knee Strength Knee Manual Muscle Testing Right Flexion (S2) 4- Good- Extension (L3) 4- Good- Left Flexion (S2) 4 Good Extension (L3) 4 Good Ankle/Foot Strength Ankle and Foot Manual Muscle Testing Right Dorsiflexion (L4) 5 Normal Plantarflexion (S1) 4 Good Comments PF tested seated B Left Dorsiflexion (L4) 5 Normal Plantarflexion (S1) 5 Normal PT-OP-Q Treatments Start: 07/29/22 12:03 Freq: Status: Active Protocol: Document 08/05/22 08:17 [facility] (Rec: 08/05/22 09:01 [facility] [id number]) Cardio Equipment Recumbent Elliptical ([employer]) Duration (Minutes) 6 Resistance 3 Seat Position 7 Gym Equipment Shuttle Balance red clips Details fwd & side WBOS Therapeutic Ball seated Ball Size/Color 65 cm Body Position seated Reps/Duration 12 ea Comments 1. circles B 2. marches B 3. kicks B Therapeutic Exercises Sitting Exercises LAQ Side bilateral Reps/Minutes 5 sec x3 ea Standing Exercises march Standing Exercise Name core engagement Side bilateral Equipment Used rail prn Reps/Minutes 10 ea hip abd Side bilateral Equipment Used rail Reps/Minutes 10 Comments cues for body upright squat Standing Exercise Name hold over chair-encouraged deeper Side bilateral Reps/Minutes 5 sec x8 heel raises Standing Exercise Name (was doing DL HEP but pt notes easy Side bilateral Reps/Minutes 10 Comments SL -cues for knee straight Neuro Re-Education Treatment Balance Activities bosu Comments standing balance SLS Details B trials hurdles Details over 6 hurdles Comments 1. fwd x8 2. lateral x2 B PT-OP-T Assessment and Plan Start: 07/29/22 12:03 Freq: Status: Active Protocol: Document 08/05/22 08:17 [facility] (Rec: 08/05/22 09:01 [facility] [id number]) Physical Therapy Assessment Goals balance Short Term Goal (STG) Pt will be able to do SLS at least 6 sec B to show improved balance STG Duration 09/07/22 Residential Goal (LTG) Pt will be able to do SLS at least 10 sec B to show improved balance LTG Duration 10/23/22 strength Short Term Goal (STG) Pt will be indep w/HEP STG Duration 09/05/22 Technology Internship Goal (LTG) Pt will score at least 4+/5 on all MMT of LE (except ext) and at lest 3/5 LPM to improve pt staiblity to feel able to do all typical activities w/o restriction. LTG Duration 10/23/22 walking Impairment can walk 1 mile-mild discomfort Short Term Goal (STG) Pt will be able to return to walking 1.5 miles with some hills w Technology Internship Goal (LTG) Pt will be able to return to walking 2 miles w/ hills and trail on uneven surface at least 5x/day without pain more than 1/10. LTG Duration 10/23/22 LEFS Short Term Goal (STG) Pt will score at least 56/80 to show improved fucntional ability. STG Duration 09/07/22 Residential Goal (LTG) Pt will score at least 65/80 to show improved fucntional ability. LTG Duration 10/23/22 Assessment Summary Assessment Pt did well with balance activities but was very much challenged on unstables surfaces and SL. UPdated HEP from MD office given HEP to more difficult exercises but pt tolerated them well w/ceus w/o c/o pain just difficulty Physical Therapy Plan Frequency and Duration Frequency of Treatment 1-2x/wk Duration of treatment (weeks) 12 Plan of Care Start Date 07/31/22 Plan of Care End Date 10/23/22 Next Visit Focus/Plan Next Note Type Treatment Note Next Visit Plan no wt training, seated stepper , manual to ITB and quad; standing strength and balance.
--- NOTE | 2022-08-08 08:17 | PT.OTN ---
Current Diagnoses Pain in right hip (08/08/22) Difficulty in walking, not elsewhere classified (08/08/22) Weakness (08/08/22) Aftercare following joint replacement surgery (08/08/22) Presence of right artificial hip joint (08/08/22) Physical Therapy Treatment Note PT-OP-A Visit Information Start: 07/29/22 12:03 Freq: Status: Active Protocol: Document 08/08/22 07:29 [facility] (Rec: 08/08/22 08:17 [facility] [id number]) Out-Patient Physical Therapy Visit Information Visit Information Visit Type Treatment Note Visit Note 08/16 Visit Start Time 07:31 Visit Stop Time 08:13 Total Visit Minutes 42 Visit Number 3 Number of MANAGER AIR Visits 0 PT-OP-B Current Condition Start: 07/29/22 12:03 Freq: Status: Active Protocol: Document 07/31/22 15:18 [facility] (Rec: 07/31/22 16:00 [facility] [id number]) Current Condition History of Current Condition Onset Date 07/08/22 Current Complaints R MICHAEL ant History of Current Condition Pt had R MICHAEL d/t conservative measures failing. R MICHAEL ant approach done on 07/08/22. Pt is under a lot of stress d/t her brother missing, so she hasn't gotten in her exercises as much but is typically getting them in 1x/day. Pt feels like her R hip is progressing well since surgery . She saw PA via telehealth and has a visit in August where she will go for a Xray. Pt reports she is just starting to walk. She took the bandage off on Friday per protocol. Pt walking 10-12 blocks 5 days a week with some soreness. She has been driving now. Pt reports she has had a nausea that has been mostly since surgery but the last couple days it has been better. She is wondering if it may have to do with taking ibuprofen (1 in Am and 1 in afternoon and 1 at night). She has started eating with the ibuprfoen. She feels like she can move around easier in bed now. Pt would like to be able to walk greater than 2 miles a day at a fast past. Friday, she went to the [employer] class but did avoid hip ext exercise . Lately, she has been able to reciprocate up/down stairs. She has had some dizziness lately. Pt does have osteoporosis and does occ have some LBP recently, dizziness, and history of L MICHAEL in 2016. During , pt notes inc dizziness. Treatment Goals Patient/Caregiver Goals Inc walk distance & be able to go on trails, make sure her gait is in good form, PT-OP-C Subjective Start: 07/29/22 12:03 Freq: Status: Active Protocol: Document 08/08/22 07:29 [facility] (Rec: 08/08/22 08:17 [facility] [id number]) OP-PT Subjective Patient Comments Patient Comments pt reports she went to [employer] and core and body is overall sore. PT-OP-D Balance Start: 07/29/22 12:03 Freq: Status: Active Protocol: Document 07/31/22 15:18 [facility] (Rec: 07/31/22 16:00 [facility] [id number]) Balance Tests Single Limb Standing Single Limb- Right 2 sec w/UE motion Single Limb- Left 5 sec PT-OP-G Mobility & Gait Start: 07/29/22 12:03 Freq: Status: Active Protocol: Document 07/31/22 15:18 [facility] (Rec: 07/31/22 16:00 [facility] [id number]) OP Gait Assessment Comments Gait Comments Dec stance time on RLE and has dec push off PT-OP-J Posture/Palpation/Skin Start: 07/29/22 12:03 Freq: Status: Active Protocol: Document 07/31/22 15:18 [facility] (Rec: 07/31/22 16:00 [facility] [id number]) Posture Evaluation [facility] Postural Classification System Lumbar Protective Mechanism Right AP 0 Lumbar Protective Mechanism Left PA 0 Lumbar Protective Mechanism Right PA 0 PT-OP-L Special Tests Start: 07/29/22 12:03 Freq: Status: Active Protocol: Document 07/31/22 15:18 [facility] (Rec: 07/31/22 16:00 [facility] [id number]) Special Tests Hip Special Tests Straight Leg Raise Comments 51 deg R; 52 L-HS tightness PT-OP-M Strength Start: 07/29/22 12:03 Freq: Status: Active Protocol: Document 07/31/22 15:18 [facility] (Rec: 07/31/22 16:00 [facility] [id number]) Hip Strength Hip Manual Muscle Testing Right Flexion (L2) 3+ Fair+ Abduction 3+ Fair+ External Rotation 3+ Fair+ Internal Rotation 4- Good- Comments ext not tested d/t restrictions; ER tested in neutral Left Flexion (L2) 3+ Fair+ Abduction 4 Good External Rotation 4 Good Internal Rotation 4 Good Knee Strength Knee Manual Muscle Testing Right Flexion (S2) 4- Good- Extension (L3) 4- Good- Left Flexion (S2) 4 Good Extension (L3) 4 Good Ankle/Foot Strength Ankle and Foot Manual Muscle Testing Right Dorsiflexion (L4) 5 Normal Plantarflexion (S1) 4 Good Comments PF tested seated B Left Dorsiflexion (L4) 5 Normal Plantarflexion (S1) 5 Normal PT-OP-Q Treatments Start: 07/29/22 12:03 Freq: Status: Active Protocol: Document 08/08/22 07:29 [facility] (Rec: 08/08/22 08:17 [facility] [id number]) Cardio Equipment Recumbent Elliptical (Bi[employer]) Duration (Minutes) 6 Resistance 4 Seat Position 7 Gym Equipment Shuttle Balance red clips Comments fwd& side: WBOS, NBOS FWd: staggered stance B Therapeutic Ball seated Ball Size/Color 65 cm Body Position seated Reps/Duration 12 ea Comments 1. circles B 2. marches B 3. kicks B Therapeutic Exercises Standing Exercises march Standing Exercise Name core engagement Side bilateral Equipment Used rail prn Reps/Minutes 10 ea hip abd Side bilateral Equipment Used rail Reps/Minutes 10 ea Comments cues for body upright squat Standing Exercise Name hold over chair-encouraged deeper Side bilateral Reps/Minutes 5 sec x8 heel raises Side bilateral Reps/Minutes 10 ea Comments SL -cues for knee straight Neuro Re-Education Treatment Balance Activities bosu Comments standing balance SLS Details B trials hurdles Details over 6 hurdles Comments 1. fwd x8 2. lateral x2 B PT-OP-T Assessment and Plan Start: 07/29/22 12:03 Freq: Status: Active Protocol: Document 08/08/22 07:29 [facility] (Rec: 08/08/22 08:17 [facility] [id number]) Physical Therapy Assessment Goals balance Short Term Goal (STG) Pt will be able to do SLS at least 6 sec B to show improved balance STG Duration 09/07/22 [employer] Goal (LTG) Pt will be able to do SLS at least 10 sec B to show improved balance LTG Duration 10/23/22 strength Short Term Goal (STG) Pt will be indep w/HEP STG Duration 09/05/22 [employer] Goal (LTG) Pt will score at least 4+/5 on all MMT of LE (except ext) and at lest 3/5 LPM to improve pt staiblity to feel able to do all typical activities w/o restriction. LTG Duration 10/23/22 walking Impairment can walk 1 mile-mild discomfort Short Term Goal (STG) Pt will be able to return to walking 1.5 miles with some hills w Mcfp Goal (LTG) Pt will be able to return to walking 2 miles w/ hills and trail on uneven surface at least 5x/day without pain more than 1/10. LTG Duration 10/23/22 LEFS Short Term Goal (STG) Pt will score at least 56/80 to show improved fucntional ability. STG Duration 09/07/22 [employer] Goal (LTG) Pt will score at least 65/80 to show improved fucntional ability. LTG Duration 10/23/22 Assessment Summary Assessment Pt did well with exercises with min cueing for HEP exercises. She still does require cues for posture during exercises. Balance activities still a challenge. Physical Therapy Plan Frequency and Duration Frequency of Treatment 1-2x/wk Duration of treatment (weeks) 12 Plan of Care Start Date 07/31/22 Plan of Care End Date 10/23/22 Next Visit Focus/Plan Next Note Type Treatment Note Next Visit Plan gradual strengthening, seated stepper, manual to ITB and quad; standing strength and balance.
--- NOTE | 2022-08-21 08:59 | PT.OTN ---
Current Diagnoses Pain in right hip (08/21/22) Difficulty in walking, not elsewhere classified (08/21/22) Weakness (08/21/22) Aftercare following joint replacement surgery (08/21/22) Presence of right artificial hip joint (08/21/22) Physical Therapy Treatment Note PT-OP-A Visit Information Start: 07/29/22 12:03 Freq: Status: Active Protocol: Document 08/21/22 08:17 [facility] (Rec: 08/21/22 08:58 [facility] [id number]) Out-Patient Physical Therapy Visit Information Visit Information Visit Type Treatment Note Visit Note 09/16 Visit Start Time 08:17 Total Visit Minutes 43 Visit Number 4 Number of SENIOR NET SOFTWARE ENGINEER Visits 0 Precautions Precautions no bridging or active hip ext for 3 months; may begin strengthening at 4 weeks from surgery; keep knees apart- see referral for protocol PT-OP-B Current Condition Start: 07/29/22 12:03 Freq: Status: Active Protocol: Document 07/31/22 15:18 [facility] (Rec: 07/31/22 16:00 [facility] [id number]) Current Condition History of Current Condition Onset Date 07/08/22 Current Complaints R MICHAEL ant History of Current Condition Pt had R MICHAEL d/t conservative measures failing. R MICHAEL ant approach done on 07/08/22. Pt is under a lot of stress d/t her brother missing, so she hasn't gotten in her exercises as much but is typically getting them in 1x/day. Pt feels like her R hip is progressing well since surgery . She saw PA via telehealth and has a visit in August where she will go for a Xray. Pt reports she is just starting to walk. She took the bandage off on Friday per protocol. Pt walking 10-12 blocks 5 days a week with some soreness. She has been driving now. Pt reports she has had a nausea that has been mostly since surgery but the last couple days it has been better. She is wondering if it may have to do with taking ibuprofen (1 in Am and 1 in afternoon and 1 at night). She has started eating with the ibuprfoen. She feels like she can move around easier in bed now. Pt would like to be able to walk greater than 2 miles a day at a fast past. Friday, she went to the [email or web address] class but did avoid hip ext exercise . Lately, she has been able to reciprocate up/down stairs. She has had some dizziness lately. Pt does have osteoporosis and does occ have some LBP recently, dizziness, and history of L MICHAEL in 2016. During , pt notes inc dizziness. Treatment Goals Patient/Caregiver Goals Inc walk distance & be able to go on trails, make sure her gait is in good form, PT-OP-C Subjective Start: 07/29/22 12:03 Freq: Status: Active Protocol: Document 08/21/22 08:17 [facility] (Rec: 08/21/22 08:58 [facility] [id number]) OP-PT Subjective Patient Comments Patient Comments Can walk 2 mile prior route but much slower. Sometimes after prolonged sitting again noticing some initial stiffness. Able to go up and down a flight of stairs, able to do with alternating pattern , sometimes harder than others . PT-OP-D Balance Start: 07/29/22 12:03 Freq: Status: Active Protocol: Document 07/31/22 15:18 [facility] (Rec: 07/31/22 16:00 [facility] [id number]) Balance Tests Single Limb Standing Single Limb- Right 2 sec w/UE motion Single Limb- Left 5 sec PT-OP-G Mobility & Gait Start: 07/29/22 12:03 Freq: Status: Active Protocol: Document 07/31/22 15:18 [facility] (Rec: 07/31/22 16:00 [facility] [id number]) OP Gait Assessment Comments Gait Comments Dec stance time on RLE and has dec push off PT-OP-J Posture/Palpation/Skin Start: 07/29/22 12:03 Freq: Status: Active Protocol: Document 07/31/22 15:18 [facility] (Rec: 07/31/22 16:00 [facility] [id number]) Posture Evaluation [facility] Postural Classification System Lumbar Protective Mechanism Right AP 0 Lumbar Protective Mechanism Left PA 0 Lumbar Protective Mechanism Right PA 0 PT-OP-L Special Tests Start: 07/29/22 12:03 Freq: Status: Active Protocol: Document 07/31/22 15:18 [facility] (Rec: 07/31/22 16:00 [facility] [id number]) Special Tests Hip Special Tests Straight Leg Raise Comments 51 deg R; 52 L-HS tightness PT-OP-M Strength Start: 07/29/22 12:03 Freq: Status: Active Protocol: Document 07/31/22 15:18 [facility] (Rec: 07/31/22 16:00 [facility] [id number]) Hip Strength Hip Manual Muscle Testing Right Flexion (L2) 3+ Fair+ Abduction 3+ Fair+ External Rotation 3+ Fair+ Internal Rotation 4- Good- Comments ext not tested d/t restrictions; ER tested in neutral Left Flexion (L2) 3+ Fair+ Abduction 4 Good External Rotation 4 Good Internal Rotation 4 Good Knee Strength Knee Manual Muscle Testing Right Flexion (S2) 4- Good- Extension (L3) 4- Good- Left Flexion (S2) 4 Good Extension (L3) 4 Good Ankle/Foot Strength Ankle and Foot Manual Muscle Testing Right Dorsiflexion (L4) 5 Normal Plantarflexion (S1) 4 Good Comments PF tested seated B Left Dorsiflexion (L4) 5 Normal Plantarflexion (S1) 5 Normal PT-OP-Q Treatments Start: 07/29/22 12:03 Freq: Status: Active Protocol: Document 08/21/22 08:17 [facility] (Rec: 08/21/22 08:58 [facility] [id number]) Cardio Equipment Recumbent Elliptical ([employer]) Duration (Minutes) 8 Resistance 4 Seat Position 7 Other UE's and LE's first 5 min, LE' s only last 3 min Gym Equipment Shuttle Balance red clips Details added fwd/bck wt shift Comments fwd& side: WBOS, NBOS FWd: staggered stance B Therapeutic Ball seated Ball Size/Color 65 cm Body Position seated Reps/Duration 12 ea Comments 1. circles B 2. marches B 3. kicks B Therapeutic Exercises Standing Exercises march Standing Exercise Name core engagement Side bilateral Resistance 1# Equipment Used rail prn Reps/Minutes 10 ea hip abd Side bilateral Resistance 1# Equipment Used rail Reps/Minutes 10 ea Comments cues for body upright, slowed controlled speed heel raises Standing Exercise Name heel and toe raise with hold, cues for dec UT support Side bilateral Reps/Minutes 10 ea Comments SL -cues for knee straight Neuro Re-Education Treatment Balance Activities foam walk Equipment parallel bars Reps/Duration 1# diana LE's Comments blue, green, black, hernandez, blue square on 6 box bosu Comments standing balance SLS Details B trials hurdles Details over 6 hurdles Equipment foam pods, 1# Comments 1. fwd x8 2. lateral x2 B PT-OP-T Assessment and Plan Start: 07/29/22 12:03 Freq: Status: Active Protocol: Document 08/21/22 08:17 [facility] (Rec: 08/21/22 08:58 [facility] [id number]) Physical Therapy Assessment Rehab Potential Rehabilitation Potential Good Evaluation Complexity Number of Personal Factors/Comorbidities 3 or More Number of Body Systems Impaired 4 or More Clinical Presentation at Evaluation Evolving Impairments Impairments Activity Tolerance,Balance, Functional Activities, Functional Mobility,Gait,Pain, Posture,ROM,Soft Tissue Mobility,Strength,Transfers Goals balance Short Term Goal (STG) Pt will be able to do SLS at least 6 sec B to show improved balance STG Duration 09/07/22 [employer] Goal (LTG) Pt will be able to do SLS at least 10 sec B to show improved balance LTG Duration 10/23/22 strength Short Term Goal (STG) Pt will be indep w/HEP STG Duration 09/05/22 [employer] Goal (LTG) Pt will score at least 4+/5 on all MMT of LE (except ext) and at lest 3/5 LPM to improve pt staiblity to feel able to do all typical activities w/o restriction. LTG Duration 10/23/22 walking Impairment can walk 1 mile-mild discomfort Short Term Goal (STG) Pt will be able to return to walking 1.5 miles with some hills w [employer] Goal (LTG) Pt will be able to return to walking 2 miles w/ hills and trail on uneven surface at least 5x/day without pain more than 1/10. LTG Duration 10/23/22 LEFS Short Term Goal (STG) Pt will score at least 56/80 to show improved fucntional ability. STG Duration 09/07/22 Alf Goal (LTG) Pt will score at least 65/80 to show improved fucntional ability. LTG Duration 10/23/22 Assessment Summary Assessment Patient able to progress Biodex time and last few min do without UE's. Physical Therapy Plan Frequency and Duration Frequency of Treatment 1-2x/wk Duration of treatment (weeks) 12 Plan of Care Start Date 07/31/22 Plan of Care End Date 10/23/22 Therapeutic Interventions Therapeutic Interventions Balance Training,Gait Training ,Home Exercise Program,Joint Mobilizations,Manual Therapy, Neuromuscular Re-education, Patient/Caregiver Education, Self-Care/Home Management,Soft Tissue Mobilization,Taping, Therapeutic Activities, Therapeutic Exercises Modalities Cold Pack/Ice Massage,Electric Stimulation,Hot Packs, Ultrasound Next Visit Focus/Plan Next Note Type Treatment Note Next Visit Plan sit to stand/squats with foam under feet, gradual strengthening, seated stepper, manual to ITB and quad; standing strength and balance.
--- NOTE | 2022-08-27 12:02 | PT.OTN ---
Current Diagnoses Pain in right hip (08/27/22) Difficulty in walking, not elsewhere classified (08/27/22) Weakness (08/27/22) Aftercare following joint replacement surgery (08/27/22) Presence of right artificial hip joint (08/27/22) Physical Therapy Treatment Note PT-OP-A Visit Information Start: 07/29/22 12:03 Freq: Status: Active Protocol: Document 08/27/22 11:13 [facility] (Rec: 08/27/22 12:02 [facility] [id number]) Out-Patient Physical Therapy Visit Information Visit Information Visit Type Treatment Note Visit Note 10/16 7 wks post-op Visit Start Time 11:15 Visit Stop Time 12:00 Total Visit Minutes 42 Visit Number 4 Number of BREWING TECHNICIAN Visits 0 Precautions Precautions no bridging or active hip ext for 3 months; may begin strengthening at 4 weeks from surgery; keep knees apart- see referral for protocol PT-OP-B Current Condition Start: 07/29/22 12:03 Freq: Status: Active Protocol: Document 07/31/22 15:18 [facility] (Rec: 07/31/22 16:00 [facility] [id number]) Current Condition History of Current Condition Onset Date 07/08/22 Current Complaints R MICHAEL ant History of Current Condition Pt had R MICHAEL d/t conservative measures failing. R MICHAEL ant approach done on 07/08/22. Pt is under a lot of stress d/t her brother missing, so she hasn't gotten in her exercises as much but is typically getting them in 1x/day. Pt feels like her R hip is progressing well since surgery . She saw PA via telehealth and has a visit in August where she will go for a Xray. Pt reports she is just starting to walk. She took the bandage off on Friday per protocol. Pt walking 10-12 blocks 5 days a week with some soreness. She has been driving now. Pt reports she has had a nausea that has been mostly since surgery but the last couple days it has been better. She is wondering if it may have to do with taking ibuprofen (1 in Am and 1 in afternoon and 1 at night). She has started eating with the ibuprfoen. She feels like she can move around easier in bed now. Pt would like to be able to walk greater than 2 miles a day at a fast past. Friday, she went to the [employer] class but did avoid hip ext exercise . Lately, she has been able to reciprocate up/down stairs. She has had some dizziness lately. Pt does have osteoporosis and does occ have some LBP recently, dizziness, and history of L MICHAEL in 2016. During , pt notes inc dizziness. Treatment Goals Patient/Caregiver Goals Inc walk distance & be able to go on trails, make sure her gait is in good form, PT-OP-C Subjective Start: 07/29/22 12:03 Freq: Status: Active Protocol: Document 08/27/22 11:13 [facility] (Rec: 08/27/22 12:02 [facility] [id number]) OP-PT Subjective Patient Comments Patient Comments Did a lot of walking over the weekend, about 2 miles per day . Needs to work a lot on balance. Has not been doing HEP as much, has been going to [employer] exercise class 2x/wk PT-OP-D Balance Start: 07/29/22 12:03 Freq: Status: Active Protocol: Document 07/31/22 15:18 [facility] (Rec: 07/31/22 16:00 [facility] [id number]) Balance Tests Single Limb Standing Single Limb- Right 2 sec w/UE motion Single Limb- Left 5 sec PT-OP-G Mobility & Gait Start: 07/29/22 12:03 Freq: Status: Active Protocol: Document 07/31/22 15:18 [facility] (Rec: 07/31/22 16:00 [facility] [id number]) OP Gait Assessment Comments Gait Comments Dec stance time on RLE and has dec push off PT-OP-J Posture/Palpation/Skin Start: 07/29/22 12:03 Freq: Status: Active Protocol: Document 07/31/22 15:18 [facility] (Rec: 07/31/22 16:00 [facility] [id number]) Posture Evaluation [facility] Postural Classification System Lumbar Protective Mechanism Right AP 0 Lumbar Protective Mechanism Left PA 0 Lumbar Protective Mechanism Right PA 0 PT-OP-L Special Tests Start: 07/29/22 12:03 Freq: Status: Active Protocol: Document 07/31/22 15:18 [facility] (Rec: 07/31/22 16:00 [facility] [id number]) Special Tests Hip Special Tests Straight Leg Raise Comments 51 deg R; 52 L-HS tightness PT-OP-M Strength Start: 07/29/22 12:03 Freq: Status: Active Protocol: Document 07/31/22 15:18 [facility] (Rec: 07/31/22 16:00 [facility] [id number]) Hip Strength Hip Manual Muscle Testing Right Flexion (L2) 3+ Fair+ Abduction 3+ Fair+ External Rotation 3+ Fair+ Internal Rotation 4- Good- Comments ext not tested d/t restrictions; ER tested in neutral Left Flexion (L2) 3+ Fair+ Abduction 4 Good External Rotation 4 Good Internal Rotation 4 Good Knee Strength Knee Manual Muscle Testing Right Flexion (S2) 4- Good- Extension (L3) 4- Good- Left Flexion (S2) 4 Good Extension (L3) 4 Good Ankle/Foot Strength Ankle and Foot Manual Muscle Testing Right Dorsiflexion (L4) 5 Normal Plantarflexion (S1) 4 Good Comments PF tested seated B Left Dorsiflexion (L4) 5 Normal Plantarflexion (S1) 5 Normal PT-OP-Q Treatments Start: 07/29/22 12:03 Freq: Status: Active Protocol: Document 08/27/22 11:13 [facility] (Rec: 08/27/22 12:02 [facility] [id number]) Cardio Equipment Recumbent Elliptical (Biodex) Duration (Minutes) 8 Resistance 4 Seat Position 7 Other UE's and LE's first 5 min, LE' s only last 3 min Gym Equipment Shuttle Balance red clips Details balance and wt shift fwd/bck, [place] Comments fwd& side: WBOS, NBOS FWd: staggered stance B Therapeutic Exercises Standing Exercises resisted sidestepping Equipment Used yellow band Reps/Minutes 10 ft x 2 august Standing Exercise Name core engagement Side bilateral Resistance 1# Equipment Used rail prn Reps/Minutes 20ea squat Standing Exercise Name hold over chair-encouraged deeper Side bilateral Reps/Minutes 5 sec x8 Comments blue foam under feet heel raises Standing Exercise Name heel and toe raise with hold, cues for dec UT support Side bilateral Reps/Minutes 10 ea Comments SL -cues for knee straight Neuro Re-Education Treatment Balance Activities foam walk Equipment parallel bars Reps/Duration 1# diana LE's Comments blue, green, black, hernandez, blue square on 6 box SLS Surface firm floor, foam green to black hurdles Details obstacle course Equipment foam pods, 4 box, hurdles Comments 1. fwd x8 2. lateral x2 B PT-OP-T Assessment and Plan Start: 07/29/22 12:03 Freq: Status: Active Protocol: Document 08/27/22 11:13 [facility] (Rec: 08/27/22 12:02 [facility] [id number]) Physical Therapy Assessment Impairments Impairments Activity Tolerance,Balance, Functional Activities, Functional Mobility,Gait,Pain, Posture,ROM,Soft Tissue Mobility,Strength,Transfers Goals balance Short Term Goal (STG) Pt will be able to do SLS at least 6 sec B to show improved balance STG Duration 09/07/22 [employer] Goal (LTG) Pt will be able to do SLS at least 10 sec B to show improved balance LTG Duration 10/23/22 strength Short Term Goal (STG) Pt will be indep w/HEP STG Duration 09/05/22 [facility] Goal (LTG) Pt will score at least 4+/5 on all MMT of LE (except ext) and at lest 3/5 LPM to improve pt staiblity to feel able to do all typical activities w/o restriction. LTG Duration 10/23/22 walking Impairment can walk 1 mile-mild discomfort Short Term Goal (STG) Pt will be able to return to walking 1.5 miles with some hills w [employer] Goal (LTG) Pt will be able to return to walking 2 miles w/ hills and trail on uneven surface at least 5x/day without pain more than 1/10. LTG Duration 10/23/22 LEFS Short Term Goal (STG) Pt will score at least 56/80 to show improved fucntional ability. STG Duration 09/07/22 [employer] Goal (LTG) Pt will score at least 65/80 to show improved fucntional ability. LTG Duration 10/23/22 Progress Towards Goals Progress Towards Goals Progressing Toward Goals Assessment Summary Assessment Progressed to more challenging balance tasks, obstacle course outside of parallel bars with CGA to min assist. SLS 7 sec. Resisted sidesteppping added with cues for alignment, dec speed for muscular control. Physical Therapy Plan Frequency and Duration Frequency of Treatment 1-2x/wk Duration of treatment (weeks) 12 Plan of Care Start Date 07/31/22 Plan of Care End Date 10/23/22 Therapeutic Interventions Therapeutic Interventions Balance Training,Gait Training ,Home Exercise Program,Joint Mobilizations,Manual Therapy, Neuromuscular Re-education, Patient/Caregiver Education, Self-Care/Home Management,Soft Tissue Mobilization,Taping, Therapeutic Activities, Therapeutic Exercises Modalities Cold Pack/Ice Massage,Electric Stimulation,Hot Packs, Ultrasound Next Visit Focus/Plan Next Note Type Treatment Note Next Visit Plan Manual to ITB and quad, progress strength and balance.
--- NOTE | 2022-09-02 15:48 | PT.OTN ---
Current Diagnoses Pain in right hip (09/02/22) Difficulty in walking, not elsewhere classified (09/02/22) Weakness (09/02/22) Aftercare following joint replacement surgery (09/02/22) Presence of right artificial hip joint (09/02/22) Physical Therapy Treatment Note PT-OP-A Visit Information Start: 07/29/22 12:03 Freq: Status: Active Protocol: Document 09/02/22 14:31 [facility] (Rec: 09/02/22 15:47 [facility] [id number]) Out-Patient Physical Therapy Visit Information Visit Information Visit Type Treatment Note Visit Note 11/16 Visit Start Time 14:31 Visit Stop Time 15:15 Total Visit Minutes 44 Visit Number 6 Precautions Precautions no bridging or active hip ext for 3 months; may begin strengthening at 4 weeks from surgery; keep knees apart- see referral for protocol PT-OP-B Current Condition Start: 07/29/22 12:03 Freq: Status: Active Protocol: Document 07/31/22 15:18 [facility] (Rec: 07/31/22 16:00 [facility] [id number]) Current Condition History of Current Condition Onset Date 07/08/22 Current Complaints R MICHAEL ant History of Current Condition Pt had R MICHAEL d/t conservative measures failing. R MICHAEL ant approach done on 07/08/22. Pt is under a lot of stress d/t her brother missing, so she hasn't gotten in her exercises as much but is typically getting them in 1x/day. Pt feels like her R hip is progressing well since surgery . She saw PA via telehealth and has a visit in August where she will go for a Xray. Pt reports she is just starting to walk. She took the bandage off on Friday per protocol. Pt walking 10-12 blocks 5 days a week with some soreness. She has been driving now. Pt reports she has had a nausea that has been mostly since surgery but the last couple days it has been better. She is wondering if it may have to do with taking ibuprofen (1 in Am and 1 in afternoon and 1 at night). She has started eating with the ibuprfoen. She feels like she can move around easier in bed now. Pt would like to be able to walk greater than 2 miles a day at a fast past. Friday, she went to the [employer] class but did avoid hip ext exercise . Lately, she has been able to reciprocate up/down stairs. She has had some dizziness lately. Pt does have osteoporosis and does occ have some LBP recently, dizziness, and history of L MICHAEL in 2016. During , pt notes inc dizziness. Treatment Goals Patient/Caregiver Goals Inc walk distance & be able to go on trails, make sure her gait is in good form, PT-OP-C Subjective Start: 07/29/22 12:03 Freq: Status: Active Protocol: Document 09/02/22 14:31 [facility] (Rec: 09/02/22 15:47 [facility] [id number]) OP-PT Subjective Patient Comments Patient Comments Saw surgeon last week, things looked good, continue PT. No further follow-up until 1 year out if wanted. Went to [employer] exercise class at [facility] and took a short walk today. Tired but denies need for manual treatment to quad or IT band. Patient Reported Progress Improving PT-OP-D Balance Start: 07/29/22 12:03 Freq: Status: Active Protocol: Document 07/31/22 15:18 [facility] (Rec: 07/31/22 16:00 [facility] [id number]) Balance Tests Single Limb Standing Single Limb- Right 2 sec w/UE motion Single Limb- Left 5 sec PT-OP-G Mobility & Gait Start: 07/29/22 12:03 Freq: Status: Active Protocol: Document 07/31/22 15:18 [facility] (Rec: 07/31/22 16:00 [facility] [id number]) OP Gait Assessment Comments Gait Comments Dec stance time on RLE and has dec push off PT-OP-J Posture/Palpation/Skin Start: 07/29/22 12:03 Freq: Status: Active Protocol: Document 07/31/22 15:18 [facility] (Rec: 07/31/22 16:00 [facility] [id number]) Posture Evaluation [facility] Postural Classification System Lumbar Protective Mechanism Right AP 0 Lumbar Protective Mechanism Left PA 0 Lumbar Protective Mechanism Right PA 0 PT-OP-L Special Tests Start: 07/29/22 12:03 Freq: Status: Active Protocol: Document 07/31/22 15:18 [facility] (Rec: 07/31/22 16:00 [facility] [id number]) Special Tests Hip Special Tests Straight Leg Raise Comments 51 deg R; 52 L-HS tightness PT-OP-M Strength Start: 07/29/22 12:03 Freq: Status: Active Protocol: Document 07/31/22 15:18 [facility] (Rec: 07/31/22 16:00 [facility] [id number]) Hip Strength Hip Manual Muscle Testing Right Flexion (L2) 3+ Fair+ Abduction 3+ Fair+ External Rotation 3+ Fair+ Internal Rotation 4- Good- Comments ext not tested d/t restrictions; ER tested in neutral Left Flexion (L2) 3+ Fair+ Abduction 4 Good External Rotation 4 Good Internal Rotation 4 Good Knee Strength Knee Manual Muscle Testing Right Flexion (S2) 4- Good- Extension (L3) 4- Good- Left Flexion (S2) 4 Good Extension (L3) 4 Good Ankle/Foot Strength Ankle and Foot Manual Muscle Testing Right Dorsiflexion (L4) 5 Normal Plantarflexion (S1) 4 Good Comments PF tested seated B Left Dorsiflexion (L4) 5 Normal Plantarflexion (S1) 5 Normal PT-OP-Q Treatments Start: 07/29/22 12:03 Freq: Status: Active Protocol: Document 09/02/22 14:31 [facility] (Rec: 09/02/22 15:47 [facility] [id number]) Cardio Equipment Recumbent Elliptical (Biodex) Duration (Minutes) 8 Resistance 5 Seat Position 7 Other UE's and LE's first 5 min, LE' s only last 3 min Gym Equipment Shuttle Balance red clips Details balance and wt shift fwd/bck, [place] Comments fwd& side: WBOS, NBOS FWd: staggered stance B Therapeutic Exercises Standing Exercises resisted fwd/back Equipment Used red band Reps/Minutes 10 ft x 2 ea resisted sidestepping Equipment Used red band Reps/Minutes 10 ft x 2 august Standing Exercise Name core engagement Side bilateral Resistance 1# Equipment Used rail prn Reps/Minutes 20ea Comments over hurdles today hip abd Side bilateral Resistance 1# Equipment Used rail Reps/Minutes 10 ea Comments cues for body upright, slowed controlled speed Gait Training Gait Activity stairs Device Used railing PRN Level of Assistance CGA Surface 4 stairs Distance/Duration 12 stairs x 2 flights ascend and descend Treatment Focus safety Neuro Re-Education Treatment Balance Activities foam walk Equipment parallel bars Reps/Duration 1# diana LE's Comments blue, green, black, hernandez, blue square on 6 box SLS Surface firm Reps/Duration 5 trials each LE Comments max 11 sec diana hurdles Details 6 hurdles Equipment 1# Comments 1. fwd x8 2. lateral x2 B PT-OP-T Assessment and Plan Start: 07/29/22 12:03 Freq: Status: Active Protocol: Document 09/02/22 14:31 [facility] (Rec: 09/02/22 15:47 [facility] [id number]) Physical Therapy Assessment Impairments Impairments Activity Tolerance,Balance, Functional Activities, Functional Mobility,Gait,Pain, Posture,ROM,Soft Tissue Mobility,Strength,Transfers Goals balance Short Term Goal (STG) Pt will be able to do SLS at least 6 sec B to show improved balance STG Duration goal met Residential Goal (LTG) Pt will be able to do SLS at least 10 sec B to show improved balance 09/02/22: goal met 11 sec LTG Duration goal met strength Short Term Goal (STG) Pt will be indep w/HEP 09/02/22: goal met STG Duration goal met; ongoing progression Residential Goal (LTG) Pt will score at least 4+/5 on all MMT of LE (except ext) and at lest 3/5 LPM to improve pt staiblity to feel able to do all typical activities w/o restriction. LTG Duration 10/23/22 walking Impairment can walk 1 mile-mild discomfort Short Term Goal (STG) Pt will be able to return to walking 1.5 miles with some hills w 09/02/22: goal met STG Duration goal met Residential Goal (LTG) Pt will be able to return to walking 2 miles w/ hills and trail on uneven surface at least 5x/day without pain more than 06/18. 09/02/22: good goal progress LTG Duration 10/23/22 LEFS Short Term Goal (STG) Pt will score at least 56/80 to show improved fucntional ability. 09/02/22: 89% goal met STG Duration goal met Residential Goal (LTG) Pt will score at least 65/80 to show improved fucntional ability. 09/02/22: goal met LTG Duration goal met Progress Towards Goals Progress Towards Goals Progressing Toward Goals Assessment Summary Assessment Good goal progress. Achieved LEFS goal and balance goal. Recommend strength testing next session and determine need for further PT. Physical Therapy Plan Frequency and Duration Frequency of Treatment 1-2x/wk Duration of treatment (weeks) 12 Plan of Care Start Date 07/31/22 Plan of Care End Date 10/23/22 Therapeutic Interventions Therapeutic Interventions Balance Training,Gait Training ,Home Exercise Program,Joint Mobilizations,Manual Therapy, Neuromuscular Re-education, Patient/Caregiver Education, Self-Care/Home Management,Soft Tissue Mobilization,Taping, Therapeutic Activities, Therapeutic Exercises Modalities Cold Pack/Ice Massage,Electric Stimulation,Hot Packs, Ultrasound Next Visit Focus/Plan Next Note Type Treatment Note Next Visit Plan LE strength testing. Discuss POC and need for further PT.
--- NOTE | 2022-09-04 14:28 | PT.OTN ---
Current Diagnoses Pain in right hip (09/04/22) Difficulty in walking, not elsewhere classified (09/04/22) Weakness (09/04/22) Aftercare following joint replacement surgery (09/04/22) Presence of right artificial hip joint (09/04/22) Physical Therapy Treatment Note PT-OP-A Visit Information Start: 07/29/22 12:03 Freq: Status: Active Protocol: Document 09/04/22 13:51 [facility] (Rec: 09/04/22 14:28 [facility] [id number]) Out-Patient Physical Therapy Visit Information Visit Information Visit Type Progress Note Visit Note 06/18 Visit Start Time 13:47 Visit Stop Time 14:27 Total Visit Minutes 40 Visit Number 7 Number of DIRECTOR FAMILY Visits 0 PT-OP-B Current Condition Start: 07/29/22 12:03 Freq: Status: Active Protocol: Document 07/31/22 15:18 [facility] (Rec: 07/31/22 16:00 [facility] [id number]) Current Condition History of Current Condition Onset Date 07/08/22 Current Complaints R MICHAEL ant History of Current Condition Pt had R MICHAEL d/t conservative measures failing. R MICHAEL ant approach done on 07/08/22. Pt is under a lot of stress d/t her brother missing, so she hasn't gotten in her exercises as much but is typically getting them in 1x/day. Pt feels like her R hip is progressing well since surgery . She saw PA via telehealth and has a visit in August where she will go for a Xray. Pt reports she is just starting to walk. She took the bandage off on Friday per protocol. Pt walking 10-12 blocks 5 days a week with some soreness. She has been driving now. Pt reports she has had a nausea that has been mostly since surgery but the last couple days it has been better. She is wondering if it may have to do with taking ibuprofen (1 in Am and 1 in afternoon and 1 at night). She has started eating with the ibuprfoen. She feels like she can move around easier in bed now. Pt would like to be able to walk greater than 2 miles a day at a fast past. Friday, she went to the [employer] class but did avoid hip ext exercise . Lately, she has been able to reciprocate up/down stairs. She has had some dizziness lately. Pt does have osteoporosis and does occ have some LBP recently, dizziness, and history of L MICHAEL in 2016. During , pt notes inc dizziness. Treatment Goals Patient/Caregiver Goals Inc walk distance & be able to go on trails, make sure her gait is in good form, PT-OP-C Subjective Start: 07/29/22 12:03 Freq: Status: Active Protocol: Document 09/04/22 13:51 [facility] (Rec: 09/04/22 14:28 [facility] [id number]) OP-PT Subjective Patient Comments Patient Comments Pt is wondering if she still needs PT. PT-OP-D Balance Start: 07/29/22 12:03 Freq: Status: Active Protocol: Document 07/31/22 15:18 [facility] (Rec: 07/31/22 16:00 [facility] [id number]) Balance Tests Single Limb Standing Single Limb- Right 2 sec w/UE motion Single Limb- Left 5 sec PT-OP-G Mobility & Gait Start: 07/29/22 12:03 Freq: Status: Active Protocol: Document 07/31/22 15:18 [facility] (Rec: 07/31/22 16:00 [facility] [id number]) OP Gait Assessment Comments Gait Comments Dec stance time on RLE and has dec push off PT-OP-J Posture/Palpation/Skin Start: 07/29/22 12:03 Freq: Status: Active Protocol: Document 07/31/22 15:18 [facility] (Rec: 07/31/22 16:00 [facility] [id number]) Posture Evaluation [facility] Postural Classification System Lumbar Protective Mechanism Right AP 0 Lumbar Protective Mechanism Left PA 0 Lumbar Protective Mechanism Right PA 0 PT-OP-L Special Tests Start: 07/29/22 12:03 Freq: Status: Active Protocol: Document 07/31/22 15:18 [facility] (Rec: 07/31/22 16:00 [facility] [id number]) Special Tests Hip Special Tests Straight Leg Raise Comments 51 deg R; 52 L-HS tightness PT-OP-M Strength Start: 07/29/22 12:03 Freq: Status: Active Protocol: Document 09/04/22 13:51 [facility] (Rec: 09/04/22 14:28 [facility] [id number]) Hip Strength Hip Manual Muscle Testing Right Flexion (L2) 4 Good Abduction 4 Good External Rotation 4 Good Internal Rotation 4+ Good+ Comments ext not tested d/t restrictions; ER tested in neutral Left Flexion (L2) 4 Good Abduction 4 Good External Rotation 5 Normal Internal Rotation 5 Normal Knee Strength Knee Manual Muscle Testing Right Flexion (S2) 5 Normal Extension (L3) 5 Normal Left Flexion (S2) 5 Normal Extension (L3) 5 Normal Ankle/Foot Strength Ankle and Foot Manual Muscle Testing Right Dorsiflexion (L4) 5 Normal Plantarflexion (S1) 5 Normal Comments 20 heel raises Left Dorsiflexion (L4) 5 Normal Plantarflexion (S1) 5 Normal Comments 20 heel raises PT-OP-Q Treatments Start: 07/29/22 12:03 Freq: Status: Active Protocol: Document 09/04/22 13:51 [facility] (Rec: 09/04/22 14:28 [facility] [id number]) Cardio Equipment Recumbent Stepper ([employer]) Duration (Minutes) 7 Resistance 6 Seat Position 10 Gym Equipment Sport Cord walking Exercise Details fwd (mirror), back, side B Cord/Resistance green Reps/Duration 10 ea Comments sm stepas back Therapeutic Exercises Standing Exercises step up Standing Exercise Name w/alt march Side bilateral Equipment Used 8 in step Reps/Minutes 10 Gait Training Gait Activity gait Comments in mirror watching lean to dec x3 wt shifts Comments fwd in mirror x15 B PT-OP-T Assessment and Plan Start: 07/29/22 12:03 Freq: Status: Active Protocol: Document 09/04/22 13:51 [facility] (Rec: 09/04/22 14:28 [facility] [id number]) Physical Therapy Assessment Goals balance Short Term Goal (STG) Pt will be able to do SLS at least 6 sec B to show improved balance STG Duration goal met Assisted Goal (LTG) Pt will be able to do SLS at least 10 sec B to show improved balance 09/02/22: goal met 11 sec LTG Duration goal met strength Short Term Goal (STG) Pt will be indep w/HEP 09/02/22: goal met STG Duration goal met; ongoing progression Assisted Goal (LTG) Pt will score at least 4+/5 on all MMT of LE (except ext) and at lest 3/5 LPM to improve pt staiblity to feel able to do all typical activities w/o restriction. 09/04-much improved LTG Duration 10/23/22 walking Impairment can walk 1 mile-mild discomfort Short Term Goal (STG) Pt will be able to return to walking 1.5 miles with some hills w 09/02/22: goal met STG Duration goal met Hydrometer Tester Goal (LTG) Pt will be able to return to walking 2 miles w/ hills and trail on uneven surface at least 5x/day without pain more than /. 09/02/22: good goal progress LTG Duration 10/23/22 LEFS Short Term Goal (STG) Pt will score at least 56/80 to show improved fucntional ability. 09/02/22: 89% goal met STG Duration goal met Assisted Goal (LTG) Pt will score at least 65/80 to show improved fucntional ability. 09/02/22: goal met LTG Duration goal met Assessment Summary Assessment Pt has met most goals at this time but is still limited w/ gait as she tends to lat lean. She can improve this w/mirror so plan to cont 1x/wk to work on this. Physical Therapy Plan Frequency and Duration Frequency of Treatment 1-2x/wk Duration of treatment (weeks) 12 Plan of Care Start Date 07/31/22 Plan of Care End Date 10/23/22 Next Visit Focus/Plan Next Note Type Treatment Note Next Visit Plan focus on gait and balance along w/hip strength
--- NOTE | 2022-09-11 12:03 | PT.OTN ---
Current Diagnoses Pain in right hip (09/11/22) Difficulty in walking, not elsewhere classified (09/11/22) Weakness (09/11/22) Aftercare following joint replacement surgery (09/11/22) Presence of right artificial hip joint (09/11/22) Physical Therapy Treatment Note PT-OP-A Visit Information Start: 07/29/22 12:03 Freq: Status: Active Protocol: Document 09/11/22 11:21 [facility] (Rec: 09/11/22 12:03 [facility] [id number]) Out-Patient Physical Therapy Visit Information Visit Information Visit Type Treatment Note Visit Note 07/19 Visit Start Time 11:20 Visit Stop Time 12:00 Total Visit Minutes 40 Visit Number 8 Number of INNER LAYER SCRUBBER TENDER Visits 0 PT-OP-B Current Condition Start: 07/29/22 12:03 Freq: Status: Active Protocol: Document 07/31/22 15:18 [facility] (Rec: 07/31/22 16:00 [facility] [id number]) Current Condition History of Current Condition Onset Date 07/08/22 Current Complaints R MICHAEL ant History of Current Condition Pt had R MICHAEL d/t conservative measures failing. R MICHAEL ant approach done on 07/08/22. Pt is under a lot of stress d/t her brother missing, so she hasn't gotten in her exercises as much but is typically getting them in 1x/day. Pt feels like her R hip is progressing well since surgery . She saw PA via telehealth and has a visit in August where she will go for a Xray. Pt reports she is just starting to walk. She took the bandage off on Friday per protocol. Pt walking 10-12 blocks 5 days a week with some soreness. She has been driving now. Pt reports she has had a nausea that has been mostly since surgery but the last couple days it has been better. She is wondering if it may have to do with taking ibuprofen (1 in Am and 1 in afternoon and 1 at night). She has started eating with the ibuprfoen. She feels like she can move around easier in bed now. Pt would like to be able to walk greater than 2 miles a day at a fast past. Friday, she went to the [employer] class but did avoid hip ext exercise . Lately, she has been able to reciprocate up/down stairs. She has had some dizziness lately. Pt does have osteoporosis and does occ have some LBP recently, dizziness, and history of L MICHAEL in 2016. During , pt notes inc dizziness. Treatment Goals Patient/Caregiver Goals Inc walk distance & be able to go on trails, make sure her gait is in good form, PT-OP-C Subjective Start: 07/29/22 12:03 Freq: Status: Active Protocol: Document 09/11/22 11:21 [facility] (Rec: 09/11/22 12:03 [facility] [id number]) OP-PT Subjective Patient Comments Patient Comments Pt reports Friday she did her 2 mile loop and did silver sneakrs that day. Yesterday she noticed her R knee when walking and it better when she finished. NOte she is waiting for sneakers to come in as her old ones are broken down. PT-OP-D Balance Start: 07/29/22 12:03 Freq: Status: Active Protocol: Document 07/31/22 15:18 [facility] (Rec: 07/31/22 16:00 [facility] [id number]) Balance Tests Single Limb Standing Single Limb- Right 2 sec w/UE motion Single Limb- Left 5 sec PT-OP-G Mobility & Gait Start: 07/29/22 12:03 Freq: Status: Active Protocol: Document 07/31/22 15:18 [facility] (Rec: 07/31/22 16:00 [facility] [id number]) OP Gait Assessment Comments Gait Comments Dec stance time on RLE and has dec push off PT-OP-J Posture/Palpation/Skin Start: 07/29/22 12:03 Freq: Status: Active Protocol: Document 07/31/22 15:18 [facility] (Rec: 07/31/22 16:00 [facility] [id number]) Posture Evaluation [facility] Postural Classification System Lumbar Protective Mechanism Right AP 0 Lumbar Protective Mechanism Left PA 0 Lumbar Protective Mechanism Right PA 0 PT-OP-L Special Tests Start: 07/29/22 12:03 Freq: Status: Active Protocol: Document 07/31/22 15:18 [facility] (Rec: 07/31/22 16:00 [facility] [id number]) Special Tests Hip Special Tests Straight Leg Raise Comments 51 deg R; 52 L-HS tightness PT-OP-M Strength Start: 07/29/22 12:03 Freq: Status: Active Protocol: Document 09/04/22 13:51 [facility] (Rec: 09/04/22 14:28 [facility] [id number]) Hip Strength Hip Manual Muscle Testing Right Flexion (L2) 4 Good Abduction 4 Good External Rotation 4 Good Internal Rotation 4+ Good+ Comments ext not tested d/t restrictions; ER tested in neutral Left Flexion (L2) 4 Good Abduction 4 Good External Rotation 5 Normal Internal Rotation 5 Normal Knee Strength Knee Manual Muscle Testing Right Flexion (S2) 5 Normal Extension (L3) 5 Normal Left Flexion (S2) 5 Normal Extension (L3) 5 Normal Ankle/Foot Strength Ankle and Foot Manual Muscle Testing Right Dorsiflexion (L4) 5 Normal Plantarflexion (S1) 5 Normal Comments 20 heel raises Left Dorsiflexion (L4) 5 Normal Plantarflexion (S1) 5 Normal Comments 20 heel raises PT-OP-Q Treatments Start: 07/29/22 12:03 Freq: Status: Active Protocol: Document 09/11/22 11:21 [facility] (Rec: 09/11/22 12:03 [facility] [id number]) Cardio Equipment Recumbent Elliptical ([employer]) Duration (Minutes) 5 Resistance 6 Seat Position 7 Other Les only Gym Equipment Sport Cord walking Exercise Details fwd (mirror), back, side B Cord/Resistance green Reps/Duration 10 ea Comments sm steps back Therapeutic Exercises Standing Exercises step up Standing Exercise Name w/alt march Side bilateral Equipment Used 8 in step Reps/Minutes 5 Comments cues for knee ext Gait Training Gait Activity gait Comments in mirror focus on toe offx10 Manual Therapy Treatment Soft Tissue Mobilization quad Body Location R med & lat borders & RF Mobilization Type Rolling,Strumming Intensity/Depth Moderate Body Position Supine PT-OP-T Assessment and Plan Start: 07/29/22 12:03 Freq: Status: Active Protocol: Document 09/11/22 11:21 [facility] (Rec: 09/11/22 12:03 [facility] [id number]) Physical Therapy Assessment Goals balance Short Term Goal (STG) Pt will be able to do SLS at least 6 sec B to show improved balance STG Duration goal met Guide Visitor Goal (LTG) Pt will be able to do SLS at least 10 sec B to show improved balance 09/02/22: goal met 11 sec LTG Duration goal met strength Short Term Goal (STG) Pt will be indep w/HEP 09/02/22: goal met STG Duration goal met; ongoing progression Guide Visitor Goal (LTG) Pt will score at least 4+/5 on all MMT of LE (except ext) and at lest 3/5 LPM to improve pt staiblity to feel able to do all typical activities w/o restriction. 09/04-much improved LTG Duration 10/23/22 walking Impairment can walk 1 mile-mild discomfort Short Term Goal (STG) Pt will be able to return to walking 1.5 miles with some hills w 09/02/22: goal met STG Duration goal met Guide Visitor Goal (LTG) Pt will be able to return to walking 2 miles w/ hills and trail on uneven surface at least 5x/day without pain more than 06/18. 09/02/22: good goal progress LTG Duration 10/23/22 LEFS Short Term Goal (STG) Pt will score at least 56/80 to show improved fucntional ability. 09/02/22: 89% goal met STG Duration goal met Correction Goal (LTG) Pt will score at least 65/80 to show improved fucntional ability. 09/02/22: goal met LTG Duration goal met Assessment Summary Assessment Pt had improved gait today upon entering PT but does still have dec stance time on RLE mildely but less lat lean. she improved w/wakling w/ sport cord. Dec pain w/quad set after manual Physical Therapy Plan Frequency and Duration Frequency of Treatment 1-2x/wk Duration of treatment (weeks) 12 Plan of Care Start Date 07/31/22 Plan of Care End Date 10/23/22 Next Visit Focus/Plan Next Note Type Treatment Note Next Visit Plan focus on gait and balance along w/hip strength
--- NOTE | 2022-09-18 14:31 | PT.OTN ---
Current Diagnoses Pain in right hip (09/18/22) Difficulty in walking, not elsewhere classified (09/18/22) Weakness (09/18/22) Aftercare following joint replacement surgery (09/18/22) Presence of right artificial hip joint (09/18/22) Physical Therapy Treatment Note PT-OP-A Visit Information Start: 07/29/22 12:03 Freq: Status: Active Protocol: Document 09/18/22 13:51 [facility] (Rec: 09/18/22 14:31 [facility] [id number]) Out-Patient Physical Therapy Visit Information Visit Information Visit Type Discharge Summary Visit Start Time 13:49 Visit Stop Time 14:28 Total Visit Minutes 39 Visit Number 9 Number of FIELD REPORTER Visits 0 PT-OP-B Current Condition Start: 07/29/22 12:03 Freq: Status: Active Protocol: Document 07/31/22 15:18 [facility] (Rec: 07/31/22 16:00 [facility] [id number]) Current Condition History of Current Condition Onset Date 07/08/22 Current Complaints R MICHAEL ant History of Current Condition Pt had R MICHAEL d/t conservative measures failing. R MICHAEL ant approach done on 07/08/22. Pt is under a lot of stress d/t her brother missing, so she hasn't gotten in her exercises as much but is typically getting them in 1x/day. Pt feels like her R hip is progressing well since surgery . She saw PA via telehealth and has a visit in August where she will go for a Xray. Pt reports she is just starting to walk. She took the bandage off on Friday per protocol. Pt walking 10-12 blocks 5 days a week with some soreness. She has been driving now. Pt reports she has had a nausea that has been mostly since surgery but the last couple days it has been better. She is wondering if it may have to do with taking ibuprofen (1 in Am and 1 in afternoon and 1 at night). She has started eating with the ibuprfoen. She feels like she can move around easier in bed now. Pt would like to be able to walk greater than 2 miles a day at a fast past. Friday, she went to the [employer] class but did avoid hip ext exercise . Lately, she has been able to reciprocate up/down stairs. She has had some dizziness lately. Pt does have osteoporosis and does occ have some LBP recently, dizziness, and history of L MICHAEL in 2016. During , pt notes inc dizziness. Treatment Goals Patient/Caregiver Goals Inc walk distance & be able to go on trails, make sure her gait is in good form, PT-OP-C Subjective Start: 07/29/22 12:03 Freq: Status: Active Protocol: Document 09/18/22 13:51 [facility] (Rec: 09/18/22 14:31 [facility] [id number]) OP-PT Subjective Patient Comments Patient Comments Pt reports she hasn't had that knee pain again. SOmetimes w/ hills just gets tired in her legs. PT-OP-D Balance Start: 07/29/22 12:03 Freq: Status: Active Protocol: Document 07/31/22 15:18 [facility] (Rec: 07/31/22 16:00 [facility] [id number]) Balance Tests Single Limb Standing Single Limb- Right 2 sec w/UE motion Single Limb- Left 5 sec PT-OP-G Mobility & Gait Start: 07/29/22 12:03 Freq: Status: Active Protocol: Document 07/31/22 15:18 [facility] (Rec: 07/31/22 16:00 [facility] [id number]) OP Gait Assessment Comments Gait Comments Dec stance time on RLE and has dec push off PT-OP-J Posture/Palpation/Skin Start: 07/29/22 12:03 Freq: Status: Active Protocol: Document 09/18/22 13:51 [facility] (Rec: 09/18/22 14:31 [facility] [id number]) Posture Evaluation [facility] Postural Classification System Lumbar Protective Mechanism Left AP 0 Lumbar Protective Mechanism Right AP 0 Lumbar Protective Mechanism Left PA 1 Lumbar Protective Mechanism Right PA 1 PT-OP-L Special Tests Start: 07/29/22 12:03 Freq: Status: Active Protocol: Document 07/31/22 15:18 [facility] (Rec: 07/31/22 16:00 [facility] [id number]) Special Tests Hip Special Tests Straight Leg Raise Comments 51 deg R; 52 L-HS tightness PT-OP-M Strength Start: 07/29/22 12:03 Freq: Status: Active Protocol: Document 09/18/22 13:51 [facility] (Rec: 09/18/22 14:31 [facility] [id number]) Hip Strength Hip Manual Muscle Testing Right Flexion (L2) 4+ Good+ Abduction 5 Normal External Rotation 4 Good Internal Rotation 5 Normal Comments ext not tested d/t restrictions; ER tested in neutral Left Flexion (L2) 4 Good Abduction 4+ Good+ External Rotation 4+ Good+ Internal Rotation 5 Normal Knee Strength Knee Manual Muscle Testing Right Flexion (S2) 5 Normal Extension (L3) 5 Normal Left Flexion (S2) 5 Normal Extension (L3) 5 Normal Ankle/Foot Strength Ankle and Foot Manual Muscle Testing Right Dorsiflexion (L4) 5 Normal Plantarflexion (S1) 5 Normal Comments 20 heel raises Left Dorsiflexion (L4) 5 Normal Plantarflexion (S1) 5 Normal Comments 20 heel raises PT-OP-Q Treatments Start: 07/29/22 12:03 Freq: Status: Active Protocol: Document 09/18/22 13:51 [facility] (Rec: 09/18/22 14:31 [facility] [id number]) Cardio Equipment Recumbent Elliptical ([employer]) Duration (Minutes) 5 Resistance 8 Seat Position 7 Other Les only Gym Equipment Sport Cord walking Exercise Details fwd (mirror), back, side B Cord/Resistance green Reps/Duration 10 ea Comments sm steps back Therapeutic Exercises Supine Exercises core Side bilateral Reps/Minutes 20 sec x2 Standing Exercises SL Standing Exercise Name SLS trials Side bilateral step up Standing Exercise Name w/alt march Side bilateral Equipment Used 8 in step Reps/Minutes 5 Comments cues for knee ext resisted sidestepping Side bilateral Equipment Used yurok band Reps/Minutes 20 ft squat Standing Exercise Name hold over chair-encouraged deeper Side bilateral Reps/Minutes 5 sec x15 Gait Training Gait Activity gait Comments resisted gait 50ft w/dowel x2 PT-OP-T Assessment and Plan Start: 07/29/22 12:03 Freq: Status: Active Protocol: Document 09/18/22 13:51 [facility] (Rec: 09/18/22 14:31 [facility] [id number]) Physical Therapy Assessment Goals balance Short Term Goal (STG) Pt will be able to do SLS at least 6 sec B to show improved balance STG Duration goal met Parks And Recreation Manager Goal (LTG) Pt will be able to do SLS at least 10 sec B to show improved balance 09/02/22: goal met 11 sec LTG Duration goal met strength Short Term Goal (STG) Pt will be indep w/HEP 09/02/22: goal met STG Duration goal met; ongoing progression Half-Way Goal (LTG) Pt will score at least 4+/5 on all MMT of LE (except ext) and at lest 3/5 LPM to improve pt staiblity to feel able to do all typical activities w/o restriction. 09/04-much improved LTG Duration much improved; HEP to cont walking Impairment can walk 1 mile-mild discomfort Short Term Goal (STG) Pt will be able to return to walking 1.5 miles with some hills w 09/02/22: goal met STG Duration goal met Parks And Recreation Manager Goal (LTG) Pt will be able to return to walking 2 miles w/ hills and trail on uneven surface at least 5x/day without pain more than 06/18. 09/02/22: good goal progress LTG Duration achieved /12 LEFS Short Term Goal (STG) Pt will score at least 56/80 to show improved fucntional ability. 09/02/22: 89% goal met STG Duration goal met Half-Way Goal (LTG) Pt will score at least 65/80 to show improved fucntional ability. 09/02/22: goal met LTG Duration goal met Assessment Summary Assessment Pt did well with PT and has progressed very appropriatelly She is back to walks and light hikes and has been doing exercise class. Given HEP today to focus on at home also . DC to HEP as pt has met goals Physical Therapy Plan Discharge Physical Therapy Discharge Reasons Goals Met
== END 2022-09-19 15:11 | disposition home or self-care (01) ==
LOC: PHYS 13:45
PROVIDERS: Absent Provider Family Medicine; Family Provider Family Medicine; PCP Family Medicine; Referring Provider Specialist/Technologist Athletic Trainer; Visit Provider Specialist/Technologist Athletic Trainer
DX: Z47.1 Aftercare following joint replacement surgery (principal); Z96.641 Presence of right artificial hip joint; M25.551 Pain in right hip; R53.1 Weakness; R26.2 Difficulty in walking, not elsewhere classified
CPT/HCPCS: 97110; 97112; 97116; 97140; 97162

== ENCOUNTER → 2022-12-06 07:20 | Outpatient (CLI) | payer MEDICARE, SELFPAY ==
[2022-12-06 08:03] LABS: Add Manual Diff / Slide Review NO; Basophils Absolute Auto 0 /uL (0-100); Basophils Percent Auto 0.5 % (0-2); Eosinophils Absolute Auto 100 /uL (0-450); Eosinophils Percent Auto 2.3 % (2-4); Hematocrit 42.2 % (36-46); Hemoglobin 14.3 g/dL (12.0-16.0); Lymphocytes Absolute Auto 700 /uL (1100-4500); Lymphocytes Percent Auto 18.9 % (25-40); Mean Corpuscular Hemoglobin 30.2 PG (26-34); Mean Corpuscular Volume 88.8 fL (80-100); Monocytes Absolute Auto 500 /uL (0-900); Monocytes Percent Auto 14.1 % (3-14); Neutrophils Absolute Auto 2200 /uL (1500-7000); Neutrophils Percent Auto 64.2 % (50-75); Platelet Count 195 X10^3/uL (150-400); Red Blood Cell Count 4.75 X10^6/uL (4.0-5.2); Red Cell Distribution Width 13.7 % (11.6-14.8); White Blood Cell Count 3.5 X10^3/uL (4.5-11.0)
[2022-12-06 08:31] LABS: Alanine Aminotransferase 31 IU/L (<35); Albumin Globulin Ratio 1.5 (1.0-2.8); Alkaline Phosphatase 97 U/L (38-126); Aspartate Aminotransferase 41 IU/L (14-36); BUN Creatinine Ratio 21.7 (6-22); Bilirubin Total 0.5 mg/dL (0.2-1.3); Blood Urea Nitrogen 13 mg/dL (7-17); Calcium 8.9 mg/dL (8.4-10.2); Carbon Dioxide 31 mmol/L (22-32); Chloride 96 mmol/L (98-107); Cholesterol 204 mg/dL (140-199); Estimated Glomerular Filt Rate > 60 mL/min (>60); Globulin 2.7 g/dL (1.7-4.1); Glucose 82 mg/dL (80-110); HDL Cholesterol 105 mg/dL (40-60); HEMOLYSIS < 15 (0-50); LDL Cholesterol Calculated 89 mg/dL (<100); Potassium 4.6 mmol/L (3.4-5.1); Sodium 131 mmol/L (137-145); Total Protein 6.7 g/dL (6.3-8.2); Triglycerides 51 mg/dL (35-150)
[2022-12-06 08:43] LABS: Free T3, Triiodothyronine Free 3.34 pg/mL (2.77-5.27)
[2022-12-06 08:57] LABS: Thyroid Stimulating Hormone 3.75 uIU/mL (0.47-4.68)
== END ==
PROVIDERS: Family Provider Family Medicine; PCP Family Medicine; Referring Provider Family Medicine; Visit Provider Family Medicine
DX: D72.810 Lymphocytopenia (principal); E03.9 Hypothyroidism, unspecified; E78.2 Mixed hyperlipidemia
CPT/HCPCS: 36415; 80053; 80061; 84439; 84443; 84481; 85025

== ENCOUNTER → 2023-06-10 07:19 | Outpatient (CLI) | payer MEDICARE, SELFPAY ==
[2023-06-10 08:04] LABS: Add Manual Diff / Slide Review NO; Basophils Absolute Auto 0 /uL (0-100); Basophils Percent Auto 0.4 % (0-2); Eosinophils Absolute Auto 100 /uL (0-450); Hematocrit 43.5 % (36-46); Hemoglobin 14.5 g/dL (12.0-16.0); Lymphocytes Absolute Auto 700 /uL (1100-4500); Lymphocytes Percent Auto 19.4 % (25-40); Mean Corpuscular HGB Conc 33.4 % (30-36); Mean Corpuscular Hemoglobin 30.2 PG (26-34); Mean Corpuscular Volume 90.6 fL (80-100); Monocytes Absolute Auto 500 /uL (0-900); Monocytes Percent Auto 14.1 % (3-14); Neutrophils Absolute Auto 2200 /uL (1500-7000); Neutrophils Percent Auto 64.1 % (50-75); Platelet Count 192 X10^3/uL (150-400); Red Blood Cell Count 4.81 X10^6/uL (4.0-5.2); Red Cell Distribution Width 13.5 % (11.6-14.8); White Blood Cell Count 3.4 X10^3/uL (4.5-11.0)
[2023-06-10 08:14] LABS: BUN Creatinine Ratio 28.8 (6-22); Blood Urea Nitrogen 15 mg/dL (7-17); Calcium 9.4 mg/dL (8.4-10.2); Carbon Dioxide 30 mmol/L (22-32); Chloride 97 mmol/L (98-107); Cholesterol 210 mg/dL (140-199); Estimated Glomerular Filt Rate > 60 mL/min (>60); Glucose 88 mg/dL (80-110); HDL Cholesterol 91 mg/dL (40-60); HEMOLYSIS 17 (0-50); LDL Cholesterol Calculated 109 mg/dL (<100); Potassium 4.7 mmol/L (3.4-5.1); Sodium 131 mmol/L (137-145); Triglycerides 52 mg/dL (35-150)
[2023-06-10 08:49] LABS: TSH w/ Reflex to FT4 2.07 uIU/mL (0.47-4.68)
== END ==
PROVIDERS: Family Provider Family Medicine; PCP Family Medicine; Referring Provider Family Medicine; Visit Provider Family Medicine
DX: E78.5 Hyperlipidemia, unspecified (principal); E03.9 Hypothyroidism, unspecified
CPT/HCPCS: 36415; 80048; 80061; 84443; 85025

== ENCOUNTER → 2024-06-16 07:10 | Outpatient (CLI) | payer MEDICARE, SELFPAY ==
[2024-06-16 08:16] LABS: Alanine Aminotransferase 28 IU/L (<35); Albumin 4.3 g/dL (3.5-5.0); Albumin Globulin Ratio 1.8 (1.0-2.8); Alkaline Phosphatase 83 U/L (38-126); Aspartate Aminotransferase 44 IU/L (14-36); Bilirubin Total 0.5 mg/dL (0.2-1.3); Blood Urea Nitrogen 18 mg/dL (7-17); Calcium 9.2 mg/dL (8.4-10.2); Carbon Dioxide 30 mmol/L (22-32); Chloride 97 mmol/L (98-107); Cholesterol 211 mg/dL (140-199); Estimated Glomerular Filt Rate > 60 mL/min (>60); Globulin 2.4 g/dL (1.7-4.1); Glucose 84 mg/dL (80-110); HDL Cholesterol 105 mg/dL (40-60); HEMOLYSIS < 15 (0-50); LDL Cholesterol Calculated 96 mg/dL (<100); Sodium 132 mmol/L (137-145); Total Protein 6.7 g/dL (6.3-8.2); Triglycerides 50 mg/dL (35-150)
[2024-06-16 08:17] LABS: Add Manual Diff / Slide Review NO; Basophils Absolute Auto 0 /uL (0-100); Basophils Percent Auto 0.3 % (0-2); Eosinophils Absolute Auto 100 /uL (0-450); Eosinophils Percent Auto 1.4 % (2-4); Hematocrit 42.8 % (36-46); Hemoglobin 14.2 g/dL (12.0-16.0); Lymphocytes Absolute Auto 700 /uL (1100-4500); Lymphocytes Percent Auto 18.5 % (25-40); Mean Corpuscular HGB Conc 33.1 % (30-36); Mean Corpuscular Hemoglobin 30.1 PG (26-34); Mean Corpuscular Volume 90.9 fL (80-100); Monocytes Absolute Auto 500 /uL (0-900); Monocytes Percent Auto 14.8 % (3-14); Neutrophils Absolute Auto 2400 /uL (1500-7000); Platelet Count 214 X10^3/uL (150-400); Red Blood Cell Count 4.71 X10^6/uL (4.0-5.2); Red Cell Distribution Width 13.2 % (11.6-14.8); White Blood Cell Count 3.6 X10^3/uL (4.5-11.0)
[2024-06-16 08:51] LABS: TSH w/ Reflex to FT4 1.54 uIU/mL (0.47-4.68)
== END ==
PROVIDERS: PCP Family Medicine; Referring Provider Family Medicine; Visit Provider Family Medicine
DX: E03.9 Hypothyroidism, unspecified (principal); E78.5 Hyperlipidemia, unspecified; D72.810 Lymphocytopenia
CPT/HCPCS: 36415; 80053; 80061; 84443; 85025